=== PATIENT | male | born 1955 | race Caucasian/White ===

== ENCOUNTER → 2016-09-01 19:51 | Emergency (ER) | payer MEDICARE ==
[2016-09-01 19:56] VITALS: BP 159/84
[2016-09-01 20:31] LABS: Hematocrit 50 % (42-52); Hemoglobin 16.5 g/dl (14.0-18.0); Mean Corpuscular HGB Conc 33 g/dl (31-36); Mean Corpuscular Hemoglobin 29 pg (27-31); Mean Corpuscular Volume 86 fL (80-94); Mean Platelet Volume 7 um3 (7.4-10.4); Red Blood Count 5.77 10^6/ul (4.0-5.4); Red Cell Distribution Width 13 % (10.5-15); White Blood Count 6.5 10^3/ul (3.5-10.8)
[2016-09-01 20:35] LABS: Urine Bilirubin Negative (Negative); Urine Glucose Negative (Negative); Urine Nitrite Negative (Negative)
[2016-09-01 20:47] LABS: ALT 16 U/L (7-52); Alkaline Phosphatase 90 U/L (34-104); BUN/Creatinine Ratio 17.6 (8-20); Blood Urea Nitrogen 19 mg/dL (6-24); CO2 Carbon Dioxide 25 mmol/L (22-32); Calcium 9.1 mg/dL (8.6-10.3); Chloride 107 mmol/L (101-111); EGFR African American 89.1 (>60); EGFR Non-African American 69.3 (>60); Globulin 3.5 g/dL (2-4); Glucose 53 mg/dL (70-100); Sodium 138 mmol/L (133-145); Total Protein 7.5 g/dL (6.4-8.9)
[2016-09-01 20:48] LABS: AST 27 U/L (13-39); Anion Gap 6 mmol/L (2-11); Potassium 4.2 mmol/L (3.5-5.0)
[2016-09-01 20:49] LABS: Benzodiazepine Urine Screen None Detected (None Detect)
[2016-09-01 21:04] LABS: Acetaminophen < 15 mcg/mL; Alcohol < 10 mg/dL (<10); Salicylate < 2.50 mg/dL (<30)
[2016-09-01 21:14] LABS: TSH (Thyroid Stimulating Horm) 3.25 mcIU/mL (0.34-5.60)
--- NOTE | 2016-09-01 21:19 | ED ---
Dandre Garcia SooYoung, scribed for Curtis Fernandes MD on 09/01/16 at 2026 . Altered Mental Status - HPI Summary HPI Summary: A 61 y/o M presents to ED with c/o SI. Pt doesn't have money to get his Rx and was dropped from his insurance. He's been cutting his Paxil in half for the past week. He states he "didn't feel good about himself." He says he's been taking his other medications. - History Of Current Complaint Chief Complaint: EDMentalHealth Stated Complaint: MHE/SI Time Seen by Provider: 09/01/16 20:24 Hx Obtained From: Patient Onset/Duration: Still Present Timing: Constant Has Suicidal: Thoughts - Allergies/Home Medications Allergies/Adverse Reactions: Allergies Allergy/AdvReac Type Severity Reaction Status Date / Time Insulin [From Humulin R] Allergy Rash Verified 09/01/16 19:57 ENVIRONMENTAL Allergy NASAL Uncoded 12/07/14 12:50 CONGESTION PMH/Surg Hx/FS Hx/Imm Hx Previously Healthy: No Endocrine/Hematology History: Reports: Hx Diabetes Denies: Hx Thyroid Disease Cardiovascular History: Denies: Hx Hypertension Respiratory History: Reports: Hx Asthma, Hx Chronic Obstructive Pulmonary Disease (COPD) GI History: Denies: Hx Ulcer History: Comment Only: Hx Renal Disease - BLADDER RESECTION - Surgical History Surgery Procedure, Year, and Place: bladder tumor removal [three surgeries] - Immunization History Date of Tetanus Vaccine: PT STATES THAT IT IS UNSURE Date of Influenza Vaccine: NONE Infectious Disease History: No Infectious Disease History: 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 Denies: Hx Clostridium Difficile, Hx Hepatitis, Hx of Known/Suspected MRSA, Hx Shingles, Hx Tuberculosis, Hx Known/Suspected VRE, Hx Known/Suspected VRSA, History Other Infectious Disease, Traveled Outside the [place] in Last 30 Days - Family History Known Family History: Negative: Cardiac Disease, Hypertension, Diabetes - Social History Occupation: Disabled Lives: With Family Alcohol Use: None Hx Substance Use: No Substance Use Type: Reports: None Hx Tobacco Use: Yes Smoking Status (MU): Former Smoker Review of Systems Negative: Slurred Speech Psychological: Other - pos: SI All Other Systems Reviewed And Are Negative: Yes Physical Exam Triage Information Reviewed: Yes Vital Signs On Initial Exam: Initial Vitals Temp Pulse Resp BP Pulse Ox 97.6 F 99 18 159/84 97 09/01/16 19:52 09/01/16 19:52 09/01/16 19:52 09/01/16 19:52 09/01/16 19:52 Vital Signs Reviewed: Yes Appearance: Positive: Well-Appearing, No Pain Distress Skin: Positive: Warm Head/Face: Positive: Normal Head/Face Inspection Eyes: Positive: PRATIBHA ENT: Positive: Hearing grossly normal Neck: Positive: Supple Respiratory/Lung Sounds: Positive: Breath Sounds Present Cardiovascular: Positive: RRR Abdomen Description: Positive: Nontender, Soft Musculoskeletal: Positive: Strength/ROM Intact Neurological: Positive: Alert, Oriented to Person Place, Time Psychiatric: Positive: Anxious Diagnostics - Vital Signs Vital Signs Temp Pulse Resp BP Pulse Ox 09/01/16 19:56 97.6 F 99 18 159/84 99 09/01/16 19:52 97.6 F 99 18 159/84 97 - Laboratory Lab Results: Lab Results 09/01/16 09/01/16 09/01/16 Range/Units 20:13 20:13 20:22 WBC 6.5 (3.5-10.8) 10^3/ul RBC 5.77 H (4.0-5.4) 10^6/ul Hgb 16.5 (14.0-18.0) g/dl Hct 50 (42-52) % MCV 86 (80-94) fL MCH 29 (27-31) pg MCHC 33 (31-36) g/dl RDW 13 (10.5-15) % Plt Count 200 (150-450) 10^3/ul MPV 7 L (7.4-10.4) um3 Neut % (Auto) 50.7 (38-83) % Lymph % (Auto) 27.8 (25-47) % [place] % (Auto) 13.0 H (1-9) % Eos % (Auto) 7.2 H (0-6) % Baso % (Auto) 1.3 (0-2) % Absolute Neuts (auto) 3.3 (1.5-7.7) 10^3/ul Absolute Lymphs (auto) 1.8 (1.0-4.8) 10^3/ul Absolute Monos (auto) 0.8 (0-0.8) 10^3/ul Absolute Eos (auto) 0.5 (0-0.6) 10^3/ul Absolute Basos (auto) 0.1 (0-0.2) 10^3/ul Absolute Nucleated RBC 0.01 10^3/ul Nucleated RBC % 0.2 Sodium (133-145) mmol/L Potassium (3.5-5.0) mmol/L Chloride (101-111) mmol/L Carbon Dioxide (22-32) mmol/L Anion Gap (2-11) mmol/L BUN (6-24) mg/dL Creatinine (0.67-1.17) mg/dL Est GFR ( Amer) (>60) Est GFR (Non-Af Amer) (>60) BUN/Creatinine Ratio (8-20) Glucose (70-100) mg/dL Calcium (8.6-10.3) mg/dL Total Bilirubin (0.2-1.0) mg/dL AST (13-39) U/L ALT (7-52) U/L Alkaline Phosphatase (34-104) U/L Total Protein (6.4-8.9) g/dL Albumin (3.2-5.2) g/dL Globulin (2-4) g/dL Albumin/Globulin Ratio (1-3) TSH (0.34-5.60) mcIU/mL Urine Color Straw Urine Appearance Clear Urine pH 5.0 (5-9) Ur Specific [place] 1.008 L (1.010-1.030) Urine Protein Negative (Negative) Urine Ketones Negative (Negative) Urine Blood Negative (Negative) Urine Nitrate Negative (Negative) Urine Bilirubin Negative (Negative) Urine Urobilinogen Negative (Negative) Ur Leukocyte Esterase Negative (Negative) Urine Glucose Negative (Negative) Salicylates (<30) mg/dL Urine Opiates Screen None detected (None Detect) Acetaminophen mcg/mL Ur Barbiturates Screen None detected (None Detect) Ur Phencyclidine Scrn None detected (None Detect) Ur Amphetamines Screen None detected (None Detect) U Benzodiazepines Scrn None detected (None Detect) Urine Cocaine Screen None detected (None Detect) U Cannabinoids Screen None detected (None Detect) Serum Alcohol (<10) mg/dL 09/01/16 Range/Units 20:22 WBC (3.5-10.8) 10^3/ul RBC (4.0-5.4) 10^6/ul Hgb (14.0-18.0) g/dl Hct (42-52) % MCV (80-94) fL MCH (27-31) pg MCHC (31-36) g/dl RDW (10.5-15) % Plt Count (150-450) 10^3/ul MPV (7.4-10.4) um3 Neut % (Auto) (38-83) % Lymph % (Auto) (25-47) % [place] % (Auto) (1-9) % Eos % (Auto) (0-6) % Baso % (Auto) (0-2) % Absolute Neuts (auto) (1.5-7.7) 10^3/ul Absolute Lymphs (auto) (1.0-4.8) 10^3/ul Absolute Monos (auto) (0-0.8) 10^3/ul Absolute Eos (auto) (0-0.6) 10^3/ul Absolute Basos (auto) (0-0.2) 10^3/ul Absolute Nucleated RBC 10^3/ul Nucleated RBC % Sodium 138 (133-145) mmol/L Potassium 4.2 (3.5-5.0) mmol/L Chloride 107 (101-111) mmol/L Carbon Dioxide 25 (22-32) mmol/L Anion Gap 6 (2-11) mmol/L BUN 19 (6-24) mg/dL Creatinine 1.08 (0.67-1.17) mg/dL Est GFR ( Amer) 89.1 (>60) Est GFR (Non-Af Amer) 69.3 (>60) BUN/Creatinine Ratio 17.6 (8-20) Glucose 53 L (70-100) mg/dL Calcium 9.1 (8.6-10.3) mg/dL Total Bilirubin 0.40 (0.2-1.0) mg/dL AST 27 (13-39) U/L ALT 16 (7-52) U/L Alkaline Phosphatase 90 (34-104) U/L Total Protein 7.5 (6.4-8.9) g/dL Albumin 4.0 (3.2-5.2) g/dL Globulin 3.5 (2-4) g/dL Albumin/Globulin Ratio 1.1 (1-3) TSH 3.25 (0.34-5.60) mcIU/mL Urine Color Urine Appearance Urine pH (5-9) Ur Specific [place] (1.010-1.030) Urine Protein (Negative) Urine Ketones (Negative) Urine Blood (Negative) Urine Nitrate (Negative) Urine Bilirubin (Negative) Urine Urobilinogen (Negative) Ur Leukocyte Esterase (Negative) Urine Glucose (Negative) Salicylates < 2.50 (<30) mg/dL Urine Opiates Screen (None Detect) Acetaminophen < 15 mcg/mL Ur Barbiturates Screen (None Detect) Ur Phencyclidine Scrn (None Detect) Ur Amphetamines Screen (None Detect) U Benzodiazepines Scrn (None Detect) Urine Cocaine Screen (None Detect) U Cannabinoids Screen (None Detect) Serum Alcohol < 10 (<10) mg/dL Result Diagrams: 09/01/16 20:22 09/01/16 20:22 Lab Statement: Any lab studies that have been ordered have been reviewed, and results considered in the medical decision making process. Re-Evaluation - Re-Evaluation First Eval Change: Improved - pt seen and cleared by mental health [facility] Mental Statu Course/Dx - Course Course Of Treatment: Pt is a 61 y/o M with SI onset past few days. Pt says he has been cutting his Paxil in half for the past week because he cannot afford to refill his prescription. UA results are nml, specific gravity is 1.008. Pt medically cleared for MHE at 2030. - Diagnoses Discharge Diagnoses: Schizophrenia Discharge - Discharge Plan Condition: Stable Disposition: HOME Referrals: David Kwong NAPPER RUNNER [Primary Care Provider] - The documentation as recorded by the Dandre thurston SooYoung accurately reflects the service I personally performed and the decisions made by me, Curtis Fernandes MD.
== END | disposition home or self-care (01) ==
LOC: ED 19:51
DX: F20.9 Schizophrenia, unspecified (principal); Z87.891 Personal history of nicotine dependence; E11.9 Type 2 diabetes mellitus without complications; J44.9 Chronic obstructive pulmonary disease, unspecified
CPT/HCPCS: 36415; 80053; 80307; 80320; 80329; 81003; 84443; 85025; 99284; G0480

== ENCOUNTER 2016-12-17 00:24 | Emergency (ER) | payer MEDICARE ==
[2016-12-17] MEDS ORDERED: NS 0.9% 1000 ML* 1,000 ML IV ONE (01:07)
[2016-12-17] MEDS ORDERED: Albuterol/Ipratropium NEB.SOL* Albuterol 2.5 MG/Ipratropium 0.5 MG 3 ML INH ONE (01:07)
[2016-12-17] MEDS ORDERED: methylPREDNISolone 125 MG* 2 ML VIAL IV ONE (01:07)
[2016-12-17] MEDS ORDERED: NS 0.9% 1000 ML* 2,000 ML IV ONE (01:15)
[2016-12-17 01:25] LABS: Hematocrit 50 % (42-52); Hemoglobin 16.8 g/dl (14.0-18.0); Mean Corpuscular HGB Conc 34 g/dl (31-36); Mean Corpuscular Hemoglobin 29 pg (27-31); Mean Corpuscular Volume 85 fL (80-94); Mean Platelet Volume 7 um3 (7.4-10.4); Red Blood Count 5.83 10^6/ul (4.0-5.4); Red Cell Distribution Width 14 % (10.5-15); White Blood Count 6.7 10^3/ul (3.5-10.8)
[2016-12-17 01:38] LABS: Albumin 3.9 g/dL (3.2-5.2); Calcium 9.4 mg/dL (8.6-10.3); EGFR African American 97.4 (>60); EGFR Non-African American 75.7 (>60); Globulin 3.9 g/dL (2-4); Total Bilirubin 0.5 mg/dL (0.2-1.0); Total Protein 7.8 g/dL (6.4-8.9)
[2016-12-17 01:51] LABS: Potassium 4.5 mmol/L (3.5-5.0)
[2016-12-17] MEDS ORDERED: Azithromycin TAB* 250 MG PO ONE (02:59)
[2016-12-17 03:28] VITALS: BP 148/73
--- NOTE | 2016-12-17 03:53 | ED ---
Rogelio Garcia Rebecca, scribed for Migel Weiss MD on 12/17/16 at 0110 . Shortness of Breath - HPI Summary HPI Summary: Pt is a 61 y/o M who presents to ED c/o SOB. Sx have been present for the last 3 days, present when the pt lays flat. Sx aggravates by laying flat, alleviated by nothing, unchanged by walking. Additionally c/o wheezing, chills, rhionrrhea , AUGUST, mucous buildup in the chest and productive cough. Denies rash, edema, CP. Prior similar episode during which he was allergic to the insulin he was on at the time. PMHx CHF, SHx former smoker (quit 5 years ago). Does not use O2 at home and has inhalers. Has previously taken prednisone for arthritis. Is not on blood thinners. - History of Current Complaint Chief Complaint: EDShortnessOfBreath Time Seen by Provider: 12/17/16 00:44 Hx Obtained From: Patient Onset/Duration: Lasting Days - 3 days, Still Present Aggrevating Factors: Recumbent Position - Laying flat Alleviating Factors: Nothing Associated Signs & Symptoms: Cough (Productive), Wheezing - Allergy/Home Medications Allergies/Adverse Reactions: Allergies Allergy/AdvReac Type Severity Reaction Status Date / Time ENVIRONMENTAL Allergy NASAL Uncoded 12/17/16 00:27 CONGESTION PMH/Surg Hx/FS Hx/Imm Hx Endocrine/Hematology History: Reports: Hx Diabetes Denies: Hx Thyroid Disease Cardiovascular History: Denies: Hx Hypertension Respiratory History: Reports: Hx Asthma, Hx Chronic Obstructive Pulmonary Disease (COPD) GI History: Denies: Hx Ulcer History: Comment Only: Hx Renal Disease - BLADDER RESECTION Musculoskeletal History: Reports: Hx Rheumatoid Arthritis Psychiatric History: Denies: Hx Eating Disorder, Hx of Violent Episodes Against Others - Surgical History Surgery Procedure, Year, and Place: bladder tumor removal [three surgeries] - Immunization History Date of Tetanus Vaccine: PT STATES THAT IT IS UNSURE Date of Influenza Vaccine: NONE Infectious Disease History: No Infectious Disease History: 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 Denies: Hx Clostridium Difficile, Hx Hepatitis, Hx of Known/Suspected MRSA, Hx Shingles, Hx Tuberculosis, Hx Known/Suspected VRE, Hx Known/Suspected VRSA, History Other Infectious Disease, Traveled Outside the [place] in Last 30 Days - Family History Known Family History: Negative: Cardiac Disease, Hypertension, Diabetes - Social History Alcohol Use: None Hx Substance Use: No Substance Use Type: Reports: None Hx Tobacco Use: Yes Smoking Status (MU): Former Smoker Review of Systems Positive: Chills Positive: Nasal Discharge Negative: Chest Pain Positive: Shortness Of Breath, Cough - productive, Other - Mucous buildup Negative: Edema Negative: Rash Positive: Headache All Other Systems Reviewed And Are Negative: Yes Physical Exam - Summary Physical Exam Summary: The patient is well-nourished in mild respiratory distress. The skin is warm and dry and skin color reflects adequate perfusion. HEENT: The head is normocephalic and atraumatic. The pupils are equal and reactive. The conjunctivae are clear and without drainage. Nares are patent and without drainage. Mouth reveals moist mucous membranes and the throat has some post nasal drip. The external ears are intact. The ear canals are patent and without drainage. The tympanic membranes are intact. Bilateral frotnal sinus tenderness. Neck is supple with full range of motion and non-tender. Tjere s some wheezing in his neck. Respiratory: Chest is non-tender. There are rhonchi and wheezing in the L lobe. Sounds short of breath when you talk to him. Lungs have diminished breath sounds with more of a wheze then rhonfhi Cardiovascular: Hear is regular rate and rhythm. There is no murmur or rub auscultated. There is no peripheral edema and pulses are symmetrical and equal. Abdomen: The abdomen is soft and non-tender. There are normal bowel sounds heard in all four quadrants and there is no organomegaly palpated. Musculoskeletal: There is no back pain noted. Extremities are non-tender with full range of motion. There is good capillary refill. There is no peripheral edema or calf tenderness elicited. Neurological: Patient is alert and oriented to person, place and time. The patient has symmetrical motor strength in all four extremities. Cranial nerves are grossly intact. Deep tendon reflexes are symmetrical and equal in all four extremities. Psychiatric: The patient has an appropriate affect and does not exhibit any anxiety or depression. Triage Information Reviewed: Yes Vital Signs On Initial Exam: Initial Vitals Temp Pulse Resp BP Pulse Ox 96 F 93 18 145/78 95 12/17/16 00:29 12/17/16 00:12/17/16 00:12/17/16 00:12/17/16 00:29 Vital Signs Reviewed: Yes Diagnostics - Vital Signs Vital Signs Temp Pulse Resp BP Pulse Ox 12/17/16 00:29 96 F 93 18 145/78 95 - Laboratory Lab Results: Lab Results 12/17/16 12/17/16 12/17/16 Range/Units 01:10 01:10 01:10 WBC 6.7 (3.5-10.8) 10^3/ul RBC 5.83 H (4.0-5.4) 10^6/ul Hgb 16.8 (14.0-18.0) g/dl Hct 50 (42-52) % MCV 85 (80-94) fL MCH 29 (27-31) pg MCHC 34 (31-36) g/dl RDW 14 (10.5-15) % Plt Count 205 (150-450) 10^3/ul MPV 7 L (7.4-10.4) um3 Neut % (Auto) 49.8 (38-83) % Lymph % (Auto) 14.4 L (25-47) % [place] % (Auto) 13.9 H (1-9) % Eos % (Auto) 21.5 H (0-6) % Baso % (Auto) 0.4 (0-2) % Absolute Neuts (auto) 3.3 (1.5-7.7) 10^3/ul Absolute Lymphs (auto) 1.0 (1.0-4.8) 10^3/ul Absolute Monos (auto) 0.9 H (0-0.8) 10^3/ul Absolute Eos (auto) 1.4 H (0-0.6) 10^3/ul Absolute Basos (auto) 0 (0-0.2) 10^3/ul Absolute Nucleated RBC 0.03 10^3/ul Nucleated RBC % 0.4 Sodium 137 (133-145) mmol/L Potassium 4.5 (3.5-5.0) mmol/L Chloride 104 (101-111) mmol/L Carbon Dioxide 27 (22-32) mmol/L Anion Gap 6 (2-11) mmol/L BUN 18 (6-24) mg/dL Creatinine 1.00 (0.67-1.17) mg/dL Est GFR ( Amer) 97.4 (>60) Est GFR (Non-Af Amer) 75.7 (>60) BUN/Creatinine Ratio 18.0 (8-20) Glucose 129 H (70-100) mg/dL Lactic Acid (0.5-2.0) mmol/L Calcium 9.4 (8.6-10.3) mg/dL Total Bilirubin 0.50 (0.2-1.0) mg/dL AST 19 (13-39) U/L ALT 10 (7-52) U/L Alkaline Phosphatase 116 H (34-104) U/L Troponin I 0.00 (<0.04) ng/mL B-Natriuretic Peptide 74 ( - 100) pg/mL Total Protein 7.8 (6.4-8.9) g/dL Albumin 3.9 (3.2-5.2) g/dL Globulin 3.9 (2-4) g/dL Albumin/Globulin Ratio 1.0 (1-3) 12/17/16 Range/Units 01:10 WBC (3.5-10.8) 10^3/ul RBC (4.0-5.4) 10^6/ul Hgb (14.0-18.0) g/dl Hct (42-52) % MCV (80-94) fL MCH (27-31) pg MCHC (31-36) g/dl RDW (10.5-15) % Plt Count (150-450) 10^3/ul MPV (7.4-10.4) um3 Neut % (Auto) (38-83) % Lymph % (Auto) (25-47) % [place] % (Auto) (1-9) % Eos % (Auto) (0-6) % Baso % (Auto) (0-2) % Absolute Neuts (auto) (1.5-7.7) 10^3/ul Absolute Lymphs (auto) (1.0-4.8) 10^3/ul Absolute Monos (auto) (0-0.8) 10^3/ul Absolute Eos (auto) (0-0.6) 10^3/ul Absolute Basos (auto) (0-0.2) 10^3/ul Absolute Nucleated RBC 10^3/ul Nucleated RBC % Sodium (133-145) mmol/L Potassium (3.5-5.0) mmol/L Chloride (101-111) mmol/L Carbon Dioxide (22-32) mmol/L Anion Gap (2-11) mmol/L BUN (6-24) mg/dL Creatinine (0.67-1.17) mg/dL Est GFR ( Amer) (>60) Est GFR (Non-Af Amer) (>60) BUN/Creatinine Ratio (8-20) Glucose (70-100) mg/dL Lactic Acid 1.3 (0.5-2.0) mmol/L Calcium (8.6-10.3) mg/dL Total Bilirubin (0.2-1.0) mg/dL AST (13-39) U/L ALT (7-52) U/L Alkaline Phosphatase (34-104) U/L Troponin I (<0.04) ng/mL B-Natriuretic Peptide ( - 100) pg/mL Total Protein (6.4-8.9) g/dL Albumin (3.2-5.2) g/dL Globulin (2-4) g/dL Albumin/Globulin Ratio (1-3) Result Diagrams: 12/17/16 01:10 12/17/16 01:10 Lab Statement: Any lab studies that have been ordered have been reviewed, and results considered in the medical decision making process. - Radiology CXR Xray Interpretation: Positive (See Comments) - Infiltrate in the R lower lobe. Radiology Interpretation Completed By: ED Physician - EKG 0113 Cardiac Rate: NL - 86 bpm EKG Rhythm: Sinus Rhythm ST Segment: Non-Specific - Non-specific ST changes EKG Interpretation: Poor R wvae progression, no STEMI Re-Evaluation - Re-Evaluation First Eval Re-Evaluation Time: 02:50 Comment: To auscultation, the pt has an occasional wheeze and feels much better and expresses that he wouldlike to go home. Course/Dx - Course Assessment/Plan: Pt is a 61 y/o M who presents to ED c/o SOB. Sx have been present for the last 3 days, present when the pt lays flat. Sx aggravates by laying flat, alleviated by nothing, unchanged by walking. Additionally c/o wheezing, chills, rhionrrhea, AUGUST, mucous buildup in the chest and productive cough. Denies rash, edema, CP. Prior similar episode during which he was allergic to the insulin he was on at the time. PMHx CHF, SHx former smoker ( quit 5 years ago). Does not use O2 at home and has inhalers. Has previously taken prednisone for arthritis. Is not on blood thinners. CXR reveals infiltrate in the R lower lobe, as read by ED physician. EKG is sinus rhythm with poor R wave progression, non-specific ST changes and no STEMI. In the ED course, pt received Solu-Medrol, Zithromax, Duoneb and fluids which improved sx. Pt will be D/C to home with Dx of right lower lobe PNA, Rx for Prednisone and Zithromax and a follow up with PCP. He understands and agrees. Elevated BP noted and advised to f/u with PCP. - Diagnoses Differential Diagnosis/HQI/PQRI: Positive: Asthma, Bronchitis, CHF, COPD Exacerbation, Pneumonia Provider Diagnoses: Right lower lobe pneumonia Discharge - Discharge Plan Condition: Stable Disposition: HOME Prescriptions: Azithromycin TAB* [Zithromax TAB (Z-BRIANNA) 250 mg #6 tabs] 2 tab PO .TODAY, THEN 1 DAILY #1 brianna predniSONE TAB* [Deltasone TAB*] 60 mg PO DAILY #15 tab Patient Education Materials: Pneumonia (ED) Referrals: David Kwong, TILE PICKER [Primary Care Provider] - 3 Days The documentation as recorded by the Rogelio thurston Rebecca accurately reflects the service I personally performed and the decisions made by , Migel Weiss MD.
--- NOTE | 2016-12-17 11:18 | RAD ---
INDICATION: Shortness of breath, cough, wheezing. Question CHF and pneumonia. Former tobacco use. Chronic obstructive pulmonary disease. COMPARISON: February 23, 2015 TECHNIQUE: Dual energy PA and routine lateral views of the chest were obtained. REPORT: Elevated lung volumes and both diffuse mild prominence of the interstitial markings and patchy rarefaction of the mid to upper lung zone interstitial markings. No focal pulmonary lesion, compelling alveolar consolidation, pleural effusion, pneumothorax. The heart, pulmonary vasculature, and mediastinal contours are unremarkable. Unremarkable soft tissue contours and osseous structures. IMPRESSION: Stigmata of obstructive lung disease. No acute pulmonary or cardiac process evident.
== END 2016-12-17 03:26 | disposition home or self-care (01) ==
LOC: ED 00:24
DX: J18.9 Pneumonia, unspecified organism (principal); Z87.891 Personal history of nicotine dependence
CPT/HCPCS: 36415; 71020; 80053; 83605; 83880; 84484; 85025; 87040; 93005; 94640; 96360; 96374; 99284; A9270-GY; J2930

== ENCOUNTER 2017-01-26 10:02 | Emergency (ER) | payer MEDICARE ==
--- NOTE | 2017-01-26 11:37 | RAD ---
INDICATION: Productive cough. Aches and pains in joints for 5 days. History of tobacco use. COMPARISON: December 17, 2016 TECHNIQUE: Dual energy PA and routine lateral views of the chest were obtained. REPORT: Elevated lung volumes and both diffuse mild prominence of the interstitial markings and patchy rarefaction of the mid to upper lung zone interstitial markings. No focal pulmonary lesion, compelling alveolar consolidation, pleural effusion, pneumothorax. The heart, pulmonary vasculature, and mediastinal contours are unremarkable. No suspicious osseous lesions evident. IMPRESSION: Stigmata of obstructive lung disease. No acute pulmonary or cardiac process evident.
--- NOTE | 2017-01-26 12:08 | UC ---
Throat Pain/Nasal Carlos HPI - HPI Summary HPI Summary: HISTORY OF COPD. 1.5 MONTHS AGO HAD PNEUMONIA. GIVEN ABX AND PREDNISONE. FELT BETTER. FIVE DAYS AGO DEVELOPED SINUS PRESSURE, MUSCLE ACHES, CONGESTION AND COUGH. HAS BEEN TAKIN ALBUTEROL INHALERS AND IBUPROPHEN .HAS HAD CHILLS, BUT FEVER UNKNOWN. NO CHEST PAIN. NO SOB. - History of Current Complaint Chief Complaint: UCRespiratory Stated Complaint: COUGH Time Seen by Provider: 01/26/17 10:56 Hx Obtained From: Patient Onset/Duration: Gradual Onset, Lasting Days Severity: Moderate Cough: Nonproductive Associated Signs & Symptoms: Positive: Hoarseness, Sinus Discomfort, Nasal Discharge - Epiglottits Risk Factors Epiglottis Risk Factors: Negative - Allergies/Home Medications Allergies/Adverse Reactions: Allergies Allergy/AdvReac Type Severity Reaction Status Date / Time ENVIRONMENTAL Allergy NASAL Uncoded 01/26/17 10:44 CONGESTION Home Medications: Home Medications Ibuprofen [Advil] 4 tab PO 01/26/17 [History] Insulin BID 01/26/17 [History] Insulin LISPRO* [HumaLOG*] 01/26/17 [History] PMH/Surg Hx/FS Hx/Imm Hx Previously Healthy: Yes - Surgical History Surgical History: Yes Surgery Procedure, Year, and Place: bladder tumor removal [three surgeries] - Family History Known Family History: Negative: Cardiac Disease, Hypertension, Diabetes, Respiratory Disease - Social History Lives: With Family Alcohol Use: None Substance Use Type: None Smoking Status (MU): Former Smoker - Immunization History Most Recent Tetanus Shot: 4 years ago Review of Systems Constitutional: Chills Skin: Negative Eyes: Negative ENT: Nasal Discharge, Sinus Congestion, Sinus Pain/Tenderness Respiratory: Cough Cardiovascular: Negative Gastrointestinal: Negative Genitourinary: Negative Motor: Negative Neurovascular: Negative Musculoskeletal: Negative Neurological: Negative Psychological: Negative Is Patient Immunocompromised?: No All Other Systems Reviewed And Are Negative: Yes Physical Exam Triage Information Reviewed: Yes Appearance: No Pain Distress, Well-Nourished, Ill-Appearing - MILDLY Vital Signs: Initial Vital Signs Temp 98.7 F 01/26/17 10:47 Pulse 110 01/26/17 10:47 Resp 18 01/26/17 10:47 BP 137/58 01/26/17 10:47 Pulse Ox 96 01/26/17 10:47 Vital Signs Reviewed: Yes Eye Exam: Normal ENT: Positive: Hearing grossly normal, Nasal congestion, TM bulging, TM dull Dental Exam: Normal Neck exam: Normal Neck: Positive: Supple, Nontender, No Lymphadenopathy Respiratory Exam: Other - COUGH Respiratory: Positive: Chest non-tender, Lungs clear, Normal breath sounds, No respiratory distress, No accessory muscle use Cardiovascular Exam: Normal Cardiovascular: Positive: No Murmur, Pulses Normal, Tachycardia - 100 Abdominal Exam: Normal Abdomen Description: Positive: Nontender, No Organomegaly Musculoskeletal Exam: Normal Neurological Exam: Normal Psychological Exam: Normal Skin Exam: Normal Throat Pain/Nasal Course/Dx - Differential Dx/Diagnosis Differential Diagnosis/HQI/PQRI: Pharyngitis, Sinusitis, Tonsillitis, URI Provider Diagnoses: SINUSITIS; COPD; BRONCHITIS Discharge - Discharge Plan Condition: Stable Disposition: HOME Prescriptions: DOXYcycline CAP(*) [DOXYcycline 100MG CAP(*)] 100 mg PO BID #20 cap Patient Education Materials: Sinusitis (ED), COPD (Chronic Obstructive Pulmonary Disease) (ED), Tachycardia (ED) Referrals: David Kwong COMMUNITY SUPPORT WORKER [Primary Care Provider] -
[2017-01-26 12:21] VITALS: BP 142/72
== END 2017-01-26 12:16 | disposition home or self-care (01) ==
LOC: UCEAST 10:02
DX: J32.9 Chronic sinusitis, unspecified (principal); J40 Bronchitis, not specified as acute or chronic; Z87.891 Personal history of nicotine dependence; J44.9 Chronic obstructive pulmonary disease, unspecified
CPT/HCPCS: 71020; 87502; 99212; G0463

== ENCOUNTER → 2017-01-31 09:19 | Emergency (ER) | payer MEDICARE ==
[~2017-01-31 09:19] MED LIST: NS 0.9% 1000 ML* 1,000 ML IV ONE
[2017-01-31 10:11] LABS: Hemoglobin 11.5 g/dl (14.0-18.0); Mean Corpuscular Volume 85 fL (80-94); Red Cell Distribution Width 15 % (10.5-15)
[2017-01-31 10:13] LABS: Hematocrit 34 % (42-52); Mean Corpuscular HGB Conc 34 g/dl (31-36); Mean Corpuscular Hemoglobin 29 pg (27-31); Red Blood Count 3.98 10^6/ul (4.0-5.4); White Blood Count 9.4 10^3/ul (3.5-10.8)
[2017-01-31 10:15] LABS: Add Diff/Slide Review? Manual Diff Added; Comments Flag Yes
--- NOTE | 2017-01-31 10:20 | RAD ---
HISTORY: Cough, shortness of breath COMPARISONS: January 26, 2017 VIEWS: 4: Frontal dual-energy and lateral views of the chest. FINDINGS: CARDIOMEDIASTINAL SILHOUETTE: The cardiomediastinal silhouette is normal. SWAPNA: The swapna are normal. PLEURA: The costophrenic angles are sharp. No pleural abnormalities are noted. LUNG PARENCHYMA: There is hyperinflation with flattening of the diaphragm and expansion of the AP diameter of the chest. ABDOMEN: The upper abdomen is clear. There is no subphrenic gas. BONES AND SOFT TISSUES: No bone or soft tissue abnormalities are noted. OTHER: None. IMPRESSION: HYPERINFLATION. NO ACTIVE CARDIOPULMONARY DISEASE.
[2017-01-31 10:33] LABS: Albumin 2.5 g/dL (3.2-5.2); BUN/Creatinine Ratio 21.7 (8-20); C Reactive Protein 67.18 mg/L (< 5.00); EGFR African American 120.7 (>60); EGFR Non-African American 93.9 (>60); Globulin 3.9 g/dL (2-4); Potassium 4.1 mmol/L (3.5-5.0); Total Bilirubin 1.2 mg/dL (0.2-1.0); Total Protein 6.4 g/dL (6.4-8.9)
[2017-01-31 11:00] LABS: Eosinophils % 37 % (0-6); Immature Granulocytes 5 % (0-9); Metamyelocytes % 1 % (0-2); Neutrophil % 36 % (38-83); Reactive Lymph % 1 % (0-6)
[2017-01-31 11:02] LABS: Mean Platelet Volume 7 um3 (7.4-10.4)
[2017-01-31 11:04] LABS: Polychromasia 1+
[2017-01-31 11:05] LABS: Schistocytes 1+
[2017-01-31 11:06] LABS: Add Path Review? YES; Hypochromasia 1+
--- NOTE | 2017-01-31 12:24 | CONSULT ---
Consultation - Reason for Consultation Reason for Consultation: anemia and thrombocytopenia Ordering Provider: Rush Pennington Chief Complaint: shortness of breath, arthralgias History of Present Illness: 61 yo M w PMH of COPD, TCC of the bladder (superficial) and diabetes presenting with SOB and arthralgias and found to have acute anemia and thrombocytopenia with schistocytes on smear. Raj reports ~3 months of worsening shortness of breath and overall just not feeling well. He came to the ER here in early December at which time his CXR was clear and his CBC was essentially unremarkable with the exception of mild eosinophilia, which has been noted on CBC dating back to at least 2012. He was not treated with antibiotics at that time but continued to feel short of breath. Over the last week or so he developed arthralgias and went to urgent care on Sunday. He was afebrile and blood was not checked. He was given doxycyline. Since taking this he has had anorexia and 10 pound weight loss. He denies headaches, mental status changes, or fever. He does not take plavix, has no known hypertension and does not use cocaine or other illicit drugs. In the ER he was noted to have a Hb of 11.5 and platelet count of 19k. He denies bruising or bleeding. I have personally reviewed his smear which is notable for relative eosinophila, thrombocytopenia, and 3-5 schistocytes per oil field. There are no immature red blood cells. His bilirubin is slightly elevated at 1.2 and an LDH is pending. Allergies/Medications Medication: Home Medications Medication Instructions Recorded Confirmed Type PARoxetine HCL TAB* [Paxil TAB*] 20 mg PO DAILY 10/02/12 12/07/14 History Albuterol HFA INHALER* [Proair Hfa 1 puff INH Q4H PRN 08/14/13 12/07/14 History Inhaler*] DOXYcycline CAP(*) [DOXYcycline 100 mg PO BID #20 cap 01/26/17 Rx 100MG CAP(*)] Ibuprofen [Advil] 4 tab PO 01/26/17 History Insulin BID 01/26/17 History Insulin LISPRO* [HumaLOG*] 01/26/17 History Allergies/Adverse Reactions: Allergies Allergy/AdvReac Type Severity Reaction Status Date / Time ENVIRONMENTAL Allergy NASAL Uncoded 01/31/17 09:22 CONGESTION History - Past Medical History Other History: 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 insulin dependant diabetes. COPD. anxiety - Family History Other Family History: father some type of what sounds like acute leukemia, last year - Social History Hx Alcohol Use: No Hx Tobacco Use: Yes - quit 6 yrs ago, 1ppd x 40 yrs Hx Substance Use: No Marital Status: Review of Systems - Review of Systems Constitutional Symptoms: Positive: Weight Loss, Fatigue Dermatology: Positive: Skin Lesions - scratches on a raspberry deutsch HEENT: Positive: Normal Eyes: Positive: Normal Thyroid: Positive: Normal Pulmonary: Positive: Shortness of Breath, COPD Cardiology: Positive: Normal Gastroenterology: Positive: Anorexia Genital - Urinary: Positive: Normal Musculoskeletal: Positive: Other - arthralgias Endocrinology: Positive: Normal Neurology: Positive: Normal Psychiatry: Positive: Anxiety Physical Exam - Physical Exam Physical Examination: Vital Signs Temp Pulse Resp BP Pulse Ox 97.4 F 107 24 149/86 95 01/31/17 09:21 01/31/17 09:21 01/31/17 09:21 01/31/17 09:21 01/31/17 09:21 sitting up in nad perr eomi op moist CTA bl s1 s2 tachy soft nt no obvious hsm no le edema no purpura escoriations on arms bilaterally crusted lip lesion (reports from dry, cracking lesion not ulceration or blister) A+O x 3, nonfocal neurological exam Results - Lab Results Lab Results: 01/31/17 01/31/17 01/31/17 09:56 09:56 11:39 WBC 9.4 RBC 3.98 L Hgb 11.5 L Hct 34 L MCV 85 MCH 29 MCHC 34 RDW 15 Plt Count 19 L* MPV 7 L Immature Gran % (Auto) 5 Absolute Neuts (auto) 4.5 Absolute Lymphs (auto) 1.0 Absolute Monos (auto) 1.0 H Absolute Eos (auto) 2.8 H Absolute Basos (auto) 0 Absolute Nucleated RBC 0.02 Neutrophils % 36 L Band Neutrophils % 4 Lymphocytes % 12 L Reactive Lymphs % 1 Monocytes % 9 Eosinophils % 37 H Metamyelocytes % 1 Normal RBC Morphology Not Reportable Polychromasia 1+ Hypochromasia 1+ Schistocytes 1+ Sodium 134 Potassium 4.1 Chloride 105 Carbon Dioxide 25 Anion Gap 4 BUN 18 Creatinine 0.83 Est GFR ( Amer) 120.7 Est GFR (Non-Af Amer) 93.9 BUN/Creatinine Ratio 21.7 H Glucose 199 H POC Glucose (mg/dL) 127 H Calcium 8.0 L Total Bilirubin 1.20 H AST 16 ALT 18 Alkaline Phosphatase 100 C-Reactive Protein 67.18 H Total Protein 6.4 Albumin 2.5 L Globulin 3.9 Albumin/Globulin Ratio 0.6 L Influenza A (Rapid) Influenza B (Rapid) 01/31/17 11:41 WBC RBC Hgb Hct MCV MCH MCHC RDW Plt Count MPV Immature Gran % (Auto) Absolute Neuts (auto) Absolute Lymphs (auto) Absolute Monos (auto) Absolute Eos (auto) Absolute Basos (auto) Absolute Nucleated RBC Neutrophils % Band Neutrophils % Lymphocytes % Reactive Lymphs % Monocytes % Eosinophils % Metamyelocytes % Normal RBC Morphology Polychromasia Hypochromasia Schistocytes Sodium Potassium Chloride Carbon Dioxide Anion Gap BUN Creatinine Est GFR ( Amer) Est GFR (Non-Af Amer) BUN/Creatinine Ratio Glucose POC Glucose (mg/dL) Calcium Total Bilirubin AST ALT Alkaline Phosphatase C-Reactive Protein Total Protein Albumin Globulin Albumin/Globulin Ratio Influenza A (Rapid) Negative Influenza B (Rapid) Negative Assessment and Plan Impression: 61 yo M w 3 months of worsening SOB but 1 week of arthralgias and acute exacerbation of his shortness of breath, found to have anemia and thrombocytopenia with marked schistocytosis on smear. I wonder if the two processes are unrelated (his SOB may be from worsening COPD or eosinophilic pneumonitis given chronic elevation of his eosinophils). 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 He has no clear drugs that cause this (brief literature review does not show reports of this with doxycycline), does not have malignant hypertension or any illicit drugs. Unfortunately we do not offer plasmaphoresis at our institution and so I have advised transfer to [facility] for further evaluation and management. Raj and his are in agreement with this plan. I will not send [id number] as this will take days to come back and will be best sent at [facility] where they will be managing him.
[2017-01-31 12:38] LABS: Immature Retic Fraction 0.59
[2017-01-31 12:39] LABS: Corrected Retic Count 1.1 % (0.5-1.5); Maturation Factor Retic 1.5
--- NOTE | 2017-01-31 13:00 | ED ---
Ja Garcia Angela, scribed for Rush Pennington MD on 01/31/17 at 0953 . Respiratory - HPI Summary HPI Summary: This pt is a 61 y/o male presenting to [facility] c/o worsening cough over the past 6 months. Pt reports he has been in the ED 3 times and was put on antibiotics, all different antibiotics all 3 times. He states that his cough is productive and has been worsening. Pt denies fever, chills. He reports he went to Urgent Care on 01/26/17 for cough. Pt states he was given doxycycline which he has been taking. Since then pt notes he has had an allergic reaction and began breaking out on his back. Pt is a former smoker. PMHx includes COPD and diabetes. - History of Current Complaint Chief Complaint: EDUpperRespComplaint Stated Complaint: COUGH Time Seen by Provider: 01/31/17 09:26 Hx Obtained From: Patient Onset/Duration: Lasting Days, Still Present Timing: Constant Pain Intensity: 1 Character: Cough (Productive) Aggravating Factor(s): Nothing Alleviating Factor(s): Nothing - Allergy/Home Medications Allergies/Adverse Reactions: Allergies Allergy/AdvReac Type Severity Reaction Status Date / Time ENVIRONMENTAL Allergy NASAL Uncoded 01/31/17 09:22 CONGESTION PMH/Surg Hx/FS Hx/Imm Hx Endocrine/Hematology History: Reports: Hx Diabetes Denies: Hx Thyroid Disease Cardiovascular History: Denies: Hx Hypertension Respiratory History: Reports: Hx Asthma, Hx Chronic Obstructive Pulmonary Disease (COPD) GI History: Denies: Hx Ulcer History: Comment Only: Hx Renal Disease - BLADDER RESECTION Musculoskeletal History: Reports: Hx Rheumatoid Arthritis Psychiatric History: Denies: Hx Eating Disorder, Hx of Violent Episodes Against Others - Cancer History Cancer Type, Location and Year: bladder - Surgical History Surgery Procedure, Year, and Place: bladder tumor removal [three surgeries] - Immunization History Date of Tetanus Vaccine: PT STATES THAT IT IS UNSURE Date of Influenza Vaccine: NONE Infectious Disease History: No Infectious Disease History: 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 Denies: Hx Clostridium Difficile, Hx Hepatitis, Hx of Known/Suspected MRSA, Hx Shingles, Hx Tuberculosis, Hx Known/Suspected VRE, Hx Known/Suspected VRSA, History Other Infectious Disease, Traveled Outside the [place] in Last 30 Days - Family History Known Family History: Negative: Cardiac Disease, Hypertension, Diabetes, Respiratory Disease - Social History Alcohol Use: None Hx Substance Use: No Substance Use Type: Reports: None Hx Tobacco Use: Yes Smoking Status (MU): Former Smoker Review of Systems Negative: Fever, Chills Eyes: Negative ENT: Negative Positive: Cough Musculoskeletal: Negative Skin: Negative Neurological: Negative All Other Systems Reviewed And Are Negative: Yes Physical Exam - Summary Physical Exam Summary: VITAL SIGNS: Reviewed. GENERAL: Patient is a well-developed and nourished male who is lying comfortable in the stretcher. Patient is not in any acute respiratory distress. HEAD AND FACE: No signs of trauma. No ecchymosis, hematomas or skull depressions. No sinus tenderness. EYES: PERRLA, EOMI x 2, No injected conjunctiva, no nystagmus. EARS: Hearing grossly intact. Ear canals and tympanic membranes are within normal limits. MOUTH: Oropharynx within normal limits. NECK: Supple, trachea is midline, no adenopathy, no JVD, no carotid bruit, no c- spine tenderness, neck with full ROM. CHEST: Symmetric, no tenderness at palpation LUNGS: There is rhonchi in both lungs. There are no crackles. CVS: Regular rate and rhythm, S1 and S2 present, no murmurs or gallops appreciated. ABDOMEN: Soft, non-tender. No signs of distention. No rebound no guarding, and no masses palpated. Bowel sounds are normal. EXTREMITIES: FROM in all major joints, no edema, no cyanosis or clubbing. NEURO: Alert and oriented x 3. No acute neurological deficits. Speech is normal and follows commands. SKIN: Dry and warm. There are hives and papules on pt's back probably secondary to an allergic reaction to doxycycline. Triage Information Reviewed: Yes Vital Signs On Initial Exam: Initial Vitals Temp Pulse Resp BP Pulse Ox 97.4 F 107 24 149/86 95 01/31/17 09:21 01/31/17 09:21 01/31/17 09:21 01/31/17 09:21 01/31/17 09:21 Vital Signs Reviewed: Yes - Jarad Coma Scale Coma Scale Total: 15 Diagnostics - Vital Signs Vital Signs Temp Pulse Resp BP Pulse Ox 01/31/17 09:21 97.4 F 107 24 149/86 95 - Laboratory Lab Results: Lab Results 10/01/31/17 01/31/17 Range/Units 09:56 09:56 11:39 WBC 9.4 (3.5-10.8) 10^3/ul RBC 3.98 L (4.0-5.4) 10^6/ul RBC (Retic) 3.98 L (4.6-6.2) 10^6/ul Hgb 11.5 L (14.0-18.0) g/dl Hct 34 L (42-52) % HCT (Retic) 34 L (42-52) % MCV 85 (80-94) fL MCH 29 (27-31) pg MCHC 34 (31-36) g/dl RDW 15 (10.5-15) % Plt Count 19 L* (150-450) 10^3/ul MPV 7 L (7.4-10.4) um3 Immature Gran % (Auto) 5 (0-9) % Absolute Neuts (auto) 4.5 (1.5-7.7) 10^3/ul Absolute Lymphs (auto) 1.0 (1.0-4.8) 10^3/ul Absolute Monos (auto) 1.0 H (0-0.8) 10^3/ul Absolute Eos (auto) 2.8 H (0-0.6) 10^3/ul Absolute Basos (auto) 0 (0-0.2) 10^3/ul Absolute Nucleated RBC 0.02 10^3/ul Neutrophils % 36 L (38-83) % Band Neutrophils % 4 (0-8) % Lymphocytes % 12 L (25-47) % Reactive Lymphs % 1 (0-6) % Monocytes % 9 (0-13) % Eosinophils % 37 H (0-6) % Metamyelocytes % 1 (0-2) % Normal RBC Morphology Not Reportable Polychromasia 1+ Hypochromasia 1+ Schistocytes 1+ Retic Count, Calc 1.4 (0.5-1.5) % Corrected Retic Count 1.1 (0.5-1.5) % Retic Shift Factor 1.5 Retic Production Index 0.70 Immature Retic Fraction 0.59 Mean Retic Volume 117.3 Hem Pathologist Commnt Pending Sodium 134 (133-145) mmol/L Potassium 4.1 (3.5-5.0) mmol/L Chloride 105 (101-111) mmol/L Carbon Dioxide 25 (22-32) mmol/L Anion Gap 4 (2-11) mmol/L BUN 18 (6-24) mg/dL Creatinine 0.83 (0.67-1.17) mg/dL Est GFR ( Amer) 120.7 (>60) Est GFR (Non-Af Amer) 93.9 (>60) BUN/Creatinine Ratio 21.7 H (8-20) Glucose 199 H (70-100) mg/dL POC Glucose (mg/dL) 127 H (70-100) mg/dL Calcium 8.0 L (8.6-10.3) mg/dL Total Bilirubin 1.20 H (0.2-1.0) mg/dL AST 16 (13-39) U/L ALT 18 (7-52) U/L Alkaline Phosphatase 100 (34-104) U/L Lactate Dehydrogenase Cancelled C-Reactive Protein 67.18 H (< 5.00) mg/L Total Protein 6.4 (6.4-8.9) g/dL Albumin 2.5 L (3.2-5.2) g/dL Globulin 3.9 (2-4) g/dL Albumin/Globulin Ratio 0.6 L (1-3) Influenza A (Rapid) (Negative) Influenza B (Rapid) (Negative) 01/31/17 Range/Units 11:41 WBC (3.5-10.8) 10^3/ul RBC (4.0-5.4) 10^6/ul RBC (Retic) (4.6-6.2) 10^6/ul Hgb (14.0-18.0) g/dl Hct (42-52) % HCT (Retic) (42-52) % MCV (80-94) fL MCH (27-31) pg MCHC (31-36) g/dl RDW (10.5-15) % Plt Count (150-450) 10^3/ul MPV (7.4-10.4) um3 Immature Gran % (Auto) (0-9) % Absolute Neuts (auto) (1.5-7.7) 10^3/ul Absolute Lymphs (auto) (1.0-4.8) 10^3/ul Absolute Monos (auto) (0-0.8) 10^3/ul Absolute Eos (auto) (0-0.6) 10^3/ul Absolute Basos (auto) (0-0.2) 10^3/ul Absolute Nucleated RBC 10^3/ul Neutrophils % (38-83) % Band Neutrophils % (0-8) % Lymphocytes % (25-47) % Reactive Lymphs % (0-6) % Monocytes % (0-13) % Eosinophils % (0-6) % Metamyelocytes % (0-2) % Normal RBC Morphology Polychromasia Hypochromasia Schistocytes Retic Count, Calc (0.5-1.5) % Corrected Retic Count (0.5-1.5) % Retic Shift Factor Retic Production Index Immature Retic Fraction Mean Retic Volume Hem Pathologist Commnt Sodium (133-145) mmol/L Potassium (3.5-5.0) mmol/L Chloride (101-111) mmol/L Carbon Dioxide (22-32) mmol/L Anion Gap (2-11) mmol/L BUN (6-24) mg/dL Creatinine (0.67-1.17) mg/dL Est GFR ( Amer) (>60) Est GFR (Non-Af Amer) (>60) BUN/Creatinine Ratio (8-20) Glucose (70-100) mg/dL POC Glucose (mg/dL) (70-100) mg/dL Calcium (8.6-10.3) mg/dL Total Bilirubin (0.2-1.0) mg/dL AST (13-39) U/L ALT (7-52) U/L Alkaline Phosphatase (34-104) U/L Lactate Dehydrogenase C-Reactive Protein (< 5.00) mg/L Total Protein (6.4-8.9) g/dL Albumin (3.2-5.2) g/dL Globulin (2-4) g/dL Albumin/Globulin Ratio (1-3) Influenza A (Rapid) Negative (Negative) Influenza B (Rapid) Negative (Negative) Result Diagrams: 01/31/17 09:56 01/31/17 09:56 Lab Statement: Any lab studies that have been ordered have been reviewed, and results considered in the medical decision making process. - Radiology Chest XR Xray Interpretation: Positive (See Comments) - IMPRESSION: Hyperinflation. No active cardiopulmonary disease. ED physician has reviewed this radiology report and agrees. Radiology Interpretation Completed By: Radiologist - EKG 0949 Cardiac Rate: NL - 94 bpm EKG Rhythm: Sinus Rhythm EKG Interpretation: No ST elevation Re-Evaluation - Re-Evaluation First Eval Re-Evaluation Time: 12:35 Disposition - Course Assessment/Plan: This pt is a 61 y/o male presenting to [facility] c/o worsening cough over the past 6 months. Pt reports he has been in the ED 3 times and was put on antibiotics, all different antibiotics all 3 times. He states that his cough is productive and has been worsening. Pt denies fever, chills. He reports he went to Urgent Care on 01/26/17 for cough. Pt states he was given doxycycline which he has been taking. Since then pt notes he has had an allergic reaction and began breaking out on his back. Pt is a former smoker. PMHx includes COPD and diabetes. Test results show hemoglobin of 11.5, hematocrit of 34, platelet count of 19. MCV of 85, glucose of 199, calcium of 8 , CRP of 67.1. Influenza A and B are negative. Chest XR shows hyperinflation with no active cardiopulmonary disease. In the ED course, the pt was hydrated with IV fluids. At this point, because of thrombocytopenia, I discussed with Dr. Lvoe. She came and consulted with the pt, she thinks the pt has TTP. She reports the treatment for this pt would be plasmaphoresis and recommends the pt to be transferred. I discussed the case with Dr. Torres, from [facility], who accepted the pt for transfer. The pt accepts to be transferred and agrees with the plan. Pt is hemodynamically stable, alert and oriented x3 and is not currently bleeding. - Differential Dx - Cardiopulmonary Differential Diagnoses - Cardiopulmonary: Bronchitis, CHF, Chest Wall Pain, SARS , Other - Pneumonia - Diagnoses Provider Diagnoses: TTP (thrombotic thrombocytopenic purpura) - Physician Notifications Discussed Care Of Patient With: Jaz Love Time Discussed With Above Provider: 11:47 Instructed by Provider To: Other - I discussed the pt's case with Dr. Love. She will consult with the pt. [12:22] I discussed the case with Dr. Torres, from [facility], who has accepted the pt for admission. Discharge - Discharge Plan Condition: Stable Disposition: TRANS HIGHER LVL OF CARE FAC Discharge Disposition Comment: [facility] Referrals: David Kwong, [employer] [Primary Care Provider] - The documentation as recorded by the Ja thurston Angela accurately reflects the service I personally performed and the decisions made by me, Rush Pennington MD.
[2017-01-31 13:27] VITALS: BP 135/72
== END | disposition short-term general hospital (02) ==
LOC: ED 09:19
DX: M31.1 Thrombotic microangiopathy (principal); R05 Cough; Z87.891 Personal history of nicotine dependence
CPT/HCPCS: 36415; 71020; 80053; 83615; 85025; 85045; 85060; 85610; 86140; 87502; 93005; 99223; 99283

== ENCOUNTER 2017-03-07 12:56 | Day surgery (SDC) | payer MEDICARE ==
[~2017-03-07 12:56] MED LIST changes: +Buffered Lidocaine 0.9% SYRIN* 5 ML/SYR SYRINGE INTRADERM ONE; +Famotidine IV* 10 MG/ML 2 ML (20 mg) IV ONE; -NS 0.9% 1000 ML* 1,000 ML IV ONE
[2017-03-07] MEDS ORDERED: Buffered Lidocaine 0.9% SYRIN* 5 ML/SYR SYRINGE ONE (13:04)
[2017-03-07] MEDS ORDERED: Famotidine IV* 10 MG/ML 2 ML (20 mg) ONE ×2 (13:04→14:09)
[2017-03-07] MEDS ORDERED: Midazolam* 1 MG/ML 2 ML VIAL (2 MG) ONE (13:35)
[2017-03-07] MEDS ORDERED: fentaNYL* 50 MCG/ML 2 ML VIAL (100 MCG VIAL) ONE ×2 (14:24→16:29)
[2017-03-07] MEDS ORDERED: Cisatracurium* 2 MG/ML MDV 5 ML ONE (14:32)
[2017-03-07] MEDS ORDERED: Succinylcholine* 20 MG/ML 10 ML VIAL ONE (14:35)
[2017-03-07] MEDS ORDERED: Dexamethasone IV* 4 MG/ML 1 ML (4 MG) ONE (14:35)
[2017-03-07] MEDS ORDERED: Propofol* 10 MG/ML 20 ML BTL IV PUSH ONE ×2 (14:35→15:17)
[2017-03-07] MEDS ORDERED: Lidocaine 2% PF * 5 ML VIAL ONE (14:35)
[2017-03-07] MEDS ORDERED: Desflurane* 240 ML INH ONE (14:35)
[2017-03-07] MEDS ORDERED: Ondansetron INJ* 2 MG/ML VIAL ONE (14:35)
[2017-03-07] MEDS ORDERED: PROCHLORPERAZINE INJ 5 MG/ML 2 ML VIAL IV PRN (14:39)
[2017-03-07] MEDS ORDERED: Acetaminophen TAB* 325 MG PO PRN (14:39)
[2017-03-07] MEDS ORDERED: Ondansetron INJ* 2 MG/ML VIAL IV PRN (14:39)
[2017-03-07] MEDS ORDERED: fentaNYL* 50 MCG/ML 2 ML VIAL (100 MCG VIAL) IV PRN (14:39)
[2017-03-07] MEDS ORDERED: Levalbuterol 0.63MG/3ML NEB* UNIT OF USE INH PRN (14:39)
[2017-03-07] MEDS ORDERED: Levalbuterol HFA INHALER* 1 PUFF MDI ONE (15:45)
[2017-03-07 17:09] VITALS: BP 135/63
--- NOTE | 2017-03-08 06:09 | PRO ---
BRONCHOSCOPY REPORT: DATE OF PROCEDURE: 03/07/17 PROCEDURE PERFORMED: Bronchoscopy with endobronchial ultrasound-guided fine needle aspiration from station 7, R4 and L4 lymph nodes. INDICATION FOR THE PROCEDURE: Mediastinal and hilar adenopathy. ANESTHESIA: General anesthesia. ANESTHESIOLOGIST: Dr. Nelson. DESCRIPTION OF PROCEDURE: Informed consent was obtained from the patient prior to the procedure after all the risks and benefits were thoroughly explained. The patient was placed supine on the operating room table. The patient was intubated with size 8.0 endotracheal tube. A flexible Pentax bronchoscope was inserted through ET tube for airway inspection. No endobronchial lesions were noted. The patient had thick white secretions which were suctioned out. Bronchoscope was then withdrawn and the EBUS bronchoscope was inserted through the ET tube. EBUS bronchoscope was not working well due to technical issues and the scope could not be flexed enough to get adequate contact with the airway. Station 7 lymph node was seemed to be enlarged and was accessed with 5 passes. Benign bronchial cells were seen on few passes and blood was seen on rapid on-site exam. The rest of the sample was placed in CytoLyt. Station R4 was also sampled with 5 passes. Same findings noted in R4 and L4. L4 was accessed with 3 passes. The patient tolerated the procedure well. The patient was extubated and seen in Recovery in optimal condition. Will await final cytology results. If negative will need repeat procedure [id number]/[facility] #: [id number] [facility]
== END 2017-03-07 17:09 | disposition home or self-care (01) ==
LOC: OR 12:56
PROVIDERS: ATTEND Internal Medicine
DX: R59.0 Localized enlarged lymph nodes (principal); D72.1 Eosinophilia; Z87.891 Personal history of nicotine dependence; E11.9 Type 2 diabetes mellitus without complications; Z79.4 Long term (current) use of insulin; R91.8 Other nonspecific abnormal finding of lung field; M06.9 Rheumatoid arthritis, unspecified; J44.9 Chronic obstructive pulmonary disease, unspecified; R16.1 Splenomegaly, not elsewhere classified
CPT/HCPCS: 88172; 88173; 88177; 88305; A9270-GY; J0330; J1100; J2250; J2405; J2704; J3010

== ENCOUNTER 2017-07-19 19:47 | Inpatient (IN) | payer MEDICARE ==
[2017-07-19] MEDS ORDERED: Albuterol/Ipratropium NEB.SOL* Albuterol 2.5 MG/Ipratropium 0.5 MG 3 ML INH ONE (22:03)
[2017-07-19] MEDS ORDERED: predniSONE TAB* 20 MG PO ONE (22:03)
[2017-07-19] MEDS ORDERED: NS 0.9% 1000 ML* 1,000 ML IV ONE (22:05)
[2017-07-19 22:40] LABS: ABS Basophils 0.1 10^3/ul (0-0.2); ABS Lymphocytes 1.4 10^3/ul (1.0-4.8); ABS Monocytes 1.2 10^3/ul (0-0.8); ABS Nucleated RBC 0 10^3/ul; Hematocrit 43 % (42-52); Hemoglobin 14.4 g/dl (14.0-18.0); Lymphocyte % 12.7 % (25-47); Mean Corpuscular HGB Conc 34 g/dl (31-36); Mean Corpuscular Hemoglobin 28 pg (27-31); Mean Corpuscular Volume 83 fL (80-94); Mean Platelet Volume 6.5 um3 (7.4-10.4); Nucleated Red Blood Cells % 0.1; Platelet Count 265 10^3/ul (150-450); Red Blood Count 5.14 10^6/ul (4.0-5.4); Red Cell Distribution Width 14 % (10.5-15); White Blood Count 10.8 10^3/ul (3.5-10.8)
[2017-07-19 22:54] LABS: EGFR Non-African American 79.1 (>60)
[2017-07-19] MEDS ORDERED: Levofloxacin TAB* 250 MG PO ONE (23:08)
--- NOTE | 2017-07-20 00:42 | ED ---
Opal Garcia Gabriel, scribed for Ted Magana MD on 07/19/17 at 2201 . Shortness of Breath - HPI Summary HPI Summary: This patient is a 62 year old M presenting to [facility] with a chief complaint of SOB that began this yesterday but was worse this morning. The patient rates the pain 0/10 in severity. Patient reports cough and sinus congestion. Patient denies CP and fever. Pt is not on steroids but has an at home inhaler. Hx COPD and IDDM. - History of Current Complaint Chief Complaint: EDShortnessOfBreath Time Seen by Provider: 07/19/17 21:56 Hx Obtained From: Patient Onset/Duration: Still Present Timing: Constant Current Severity: Moderate Associated Signs & Symptoms: Negative - CP and fever, Cough (Productive), Nasal Congestion - Allergy/Home Medications Allergies/Adverse Reactions: Allergies Allergy/AdvReac Type Severity Reaction Status Date / Time Sulfa (Sulfonamide Allergy Mild GI Upset Verified 06/18/17 13:37 Antibiotics) ENVIRONMENTAL Allergy NASAL Uncoded 03/07/17 13:14 CONGESTION PMH/Surg Hx/FS Hx/Imm Hx Endocrine/Hematology History: Reports: Hx Diabetes - ON INSULIN Denies: Hx Thyroid Disease Cardiovascular History: Denies: Hx Hypertension Respiratory History: Reports: Hx Asthma - ON SYMBICORT, Hx Chronic Obstructive Pulmonary Disease (COPD) GI History: Denies: Hx Ulcer History: Reports: Other Problems/Disorders - BLADDER CANCER FOLLOWS WITH Comment Only: Hx Renal Disease - BLADDER RESECTION Musculoskeletal History: Reports: Hx Arthritis - R/A, Hx Rheumatoid Arthritis Sensory History: Reports: Hx Contacts or Glasses - GLASSES Denies: Hx Hearing Aid Opthamlomology History: Reports: Hx Contacts or Glasses - GLASSES Psychiatric History: Reports: Hx Anxiety, Hx Depression Denies: Hx Eating Disorder, Hx of Violent Episodes Against Others - Cancer History Cancer Type, Location and Year: bladder - Surgical History Surgery Procedure, Year, and Place: bladder tumor removal [three surgeries]. BONE MARROW BX 2017. WISDOM TEETH EXTRACTION Hx Anesthesia Reactions: No - Immunization History Date of Tetanus Vaccine: PT STATES THAT IT IS UNSURE Date of Influenza Vaccine: NONE Infectious Disease History: No Infectious Disease History: 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 Denies: Hx Clostridium Difficile, Hx Hepatitis, Hx of Known/Suspected MRSA, Hx Shingles, Hx Tuberculosis, Hx Known/Suspected VRE, Hx Known/Suspected VRSA, History Other Infectious Disease, Traveled Outside the [place] in Last 30 Days - Family History Known Family History: Negative: Cardiac Disease, Hypertension, Diabetes, Respiratory Disease - Social History Alcohol Use: None Hx Substance Use: No Substance Use Type: Reports: None Hx Tobacco Use: Yes Smoking Status (MU): Former Smoker Amount Used/How Often: 1/2PPD Have You Smoked in the Last Year: No Review of Systems Negative: Fever Positive: Other - congestion Negative: Chest Pain Positive: Cough All Other Systems Reviewed And Are Negative: Yes Physical Exam - Summary Physical Exam Summary: Appearance: Well appearing, no pain distress Skin: warm, dry, reflects adequate perfusion Head/face: normal Eyes: EOMI, PRATIBHA ENT: normal, mucous membranes are moist Neck: supple, non-tender Respiratory: expiratory wheezes globally with prolonged expiration, O2 sat on room air was 94% Cardiovascular: RRR, pulses symmetrical Abdomen: non-tender, soft Bowel Sounds: present Musculoskeletal: normal, strength/ROM intact Neuro: normal, sensory motor intact, A&Ox3 Triage Information Reviewed: Yes Vital Signs On Initial Exam: Initial Vitals Temp Pulse Resp BP Pulse Ox 97.7 F 100 20 133/68 91 07/19/17 19:51 07/19/17 19:51 07/19/17 19:51 07/19/17 19:51 07/19/17 19:51 Vital Signs Reviewed: Yes Diagnostics - Vital Signs Vital Signs Temp Pulse Resp BP Pulse Ox 07/19/17 20:58 98.5 F 95 22 124/64 91 07/19/17 19:51 97.7 F 100 20 133/68 91 - Laboratory Lab Results: Lab Results 07/19/17 07/19/17 07/19/17 Range/Units 22:28 22:28 23:38 WBC 10.8 (3.5-10.8) 10^3/ul RBC 5.14 (4.0-5.4) 10^6/ul Hgb 14.4 (14.0-18.0) g/dl Hct 43 (42-52) % MCV 83 (80-94) fL MCH 28 (27-31) pg MCHC 34 (31-36) g/dl RDW 14 (10.5-15) % Plt Count 265 (150-450) 10^3/ul MPV 6.5 L (7.4-10.4) um3 Neut % (Auto) 55.9 (38-83) % Lymph % (Auto) 12.7 L (25-47) % [place] % (Auto) 11.2 H (0-7) % Eos % (Auto) 19.0 H (0-6) % Baso % (Auto) 1.2 (0-2) % Absolute Neuts (auto) 6.0 (1.5-7.7) 10^3/ul Absolute Lymphs (auto) 1.4 (1.0-4.8) 10^3/ul Absolute Monos (auto) 1.2 H (0-0.8) 10^3/ul Absolute Eos (auto) 2.0 H (0-0.6) 10^3/ul Absolute Basos (auto) 0.1 (0-0.2) 10^3/ul Absolute Nucleated RBC 0 10^3/ul Nucleated RBC % 0.1 Sodium 142 (139-145) mmol/L Potassium 4.2 (3.5-5.0) mmol/L Chloride 106 (101-111) mmol/L Carbon Dioxide 29 (22-32) mmol/L Anion Gap 7 (2-11) mmol/L BUN 13 (6-24) mg/dL Creatinine 0.96 (0.67-1.17) mg/dL Est GFR ( Amer) 101.7 (>60) Est GFR (Non-Af Amer) 79.1 (>60) BUN/Creatinine Ratio 13.5 (8-20) Glucose 44 L (70-100) mg/dL POC Glucose (mg/dL) 149 H (70-100) mg/dL Calcium 8.9 (8.6-10.3) mg/dL Result Diagrams: 07/19/17 22:28 07/19/17 22:28 Lab Statement: Any lab studies that have been ordered have been reviewed, and results considered in the medical decision making process. - Radiology CXR Radiology Interpretation Completed By: ED Physician - atelectasis vs developing infiltrate in left lower lobe - EKG 2025 Cardiac Rate: NL EKG Rhythm: Sinus Rhythm - at [address] Segment: Non-Specific EKG Interpretation: normal axis Course/Dx - Course Course Of Treatment: Pt with hx of COPD, no longer smoker. ? inf starting in the [facility]. Began pt on oral steroid and given 3 duoneb with pt hoping he could be discharged. He was feeling subjectively better, however he was hypoxic off oxygen with minimal effort. Discussed with hospitalist who will admit. - Diagnoses Differential Diagnosis/HQI/PQRI: Positive: Bronchitis, COPD Exacerbation, Pneumonia Provider Diagnoses: Hypoxia, COPD exacerbation, Hypoglycemia - Physician Notifications Discussed Care of Patient With: Barry Walker Time Discussed With Above Provider: 23:54 Instructed by Provider To: Admit As Inpatient - Critical Care Time Critical Care Time: 30-74 min - CCT is exclusive of separately billable procedures. Discharge - Sign-Out/Discharge Documenting (check all that apply): Discharge - Discharge Plan Condition: Fair Disposition: ADMITTED TO [facility] Referrals: David Kwong NP [Primary Care Provider] - - Billing Disposition and Condition Condition: FAIR Disposition: [facility] [place] The documentation as recorded by the Opal thurston Gabriel accurately reflects the service I personally performed and the decisions made by Chino valadez Kirk, MD.
[2017-07-20] MEDS ORDERED: Insulin GLARGINE(*) 1 UNITS UNIT SUBCUT SCH (01:30)
--- NOTE | 2017-07-20 04:28 | HP ---
H&P (Free Text) History and Physical: PCP: Mani Kwong NP Date/Time: 07/20/2017 0040 CC: SOB HPI: Mr Sheriff is a 62YO male HX COPD, bladder CA, warm autoimmune hemolytic anemia, DM, anxiety, RA, & thrombocytopenia presents with onset Sunday evening of SOB & cough producing scant greenish phlegm without F/C, sweats, N/V , diarrhea, chest pain, or palpitations. He does experience some light- headedness with the worst of the coughing spells. He denies exacerbating or alleviating factors. PMedHx COPD bladder CA s/p transurethral resection & BCG warm autoimmune hemolytic anemia thrombocytopenia rheumatoid arthritis DM anxiety Ambulatory Orders PARoxetine HCL TAB* [Paxil TAB*] 20 mg PO DAILY 10/02/12 Budesonide/Formote 160/4.5(NF) [Symbicort 160/4.5 (NF)] 1 puff INH BID 03/06/17 Finasteride [Proscar] 5 mg PO DAILY 03/06/17 Insulin Glargine,Hum.rec.anlog [Lantus Solostar 5x3 ML PENS] 23 units SUBCUT DAILY 03/06/17 Insulin Lispro [Humalog Kwikpen] 0 unit SUBCUT . DIRECTED 03/06/17 Budesonide/Formote 160/4.5(NF) [Symbicort 160/4.5 (NF)] 2 puff INH BID 07/20/17 Fluticasone NASAL SPRAY 50MCG* [Flonase NASAL SPRAY 50MCG*] 2 spray BOTH NARES DAILY 07/20/17 Hydroxychloroquine TAB* [Plaquenil TAB*] 400 mg PO DAILY 07/20/17 Levalbuterol HFA INHALER* [Xopenex Hfa Inhaler*] 2 puff INH Q6H PRN 07/20/17 Vitamin B Complex CAP* [B Complex CAP*] 1 cap PO DAILY 07/20/17 Allergies Sulfa (Sulfonamide Antibiotics) Allergy (Mild, Verified 06/18/17 13:37) GI Upset ENVIRONMENTAL Allergy (Uncoded 03/07/17 13:14) NASAL CONGESTION PSurgHx wisdom teeth extraction SocHx: quit smoking >5 years ago w/ ~20 PYHX, no alcohol or recreational drugs; , lives alone; disabled, formerly worked construction; full code status FamHx: positive for leukemia, brain cancer, [place] lymphoma, renal cell CA, & CAD ROS: as above, otherwise reviewed and all were negative vitals: Vital Signs Temp 36.8 C 07/20/17 02:34 Pulse 100 07/20/17 02:34 Resp 18 07/20/17 02:34 BP 128/57 07/20/17 02:34 Pulse Ox 97 07/20/17 02:34 Intake & Output 07/19/17 07/19/17 07/20/17 11:59 23:59 11:59 Intake Total 1999 Balance 1999 Weight 72.575 kg 73.028 kg Intake: IV Fluids 1000 IVPB 1000 Constitutional: NAD, normally developed, well-nourished white male HEENM: atraumatic; sclera/conjunctiva: anicteric/clear; hearing: clinically intact; oropharynx: clear, mucosa moist Neck: soft tissue: non-tender; thyroid: normal Pulmonary: clear to auscultation bilaterally, good aeration, no accessory muscle use CV: RR/RR, normal S1S2, no carotid bruit, no jugular venous distention, 2+ B DP/ PT, no edema Abdominal: soft, non-distended, non-tender, no rebound/guarding/rigidity, normoactive bowel sounds, no hepatosplenomegaly or masses, no costovertebral angle tenderness Musculoskeletal: general: grossly intact, no tenderness w/ palpation Integumental: normal appearance and texture of exposed skin Psychiatric orientation: AA&O to PPS affect: calm mood: cooperative eye contact: good content: reliable responses: timely insight: good Testing: Lab Results 07/19/17 07/19/17 07/19/17 Range/Units 22:28 22:28 23:38 WBC 10.8 (3.5-10.8) 10^3/ul RBC 5.14 (4.0-5.4) 10^6/ul Hgb 14.4 (14.0-18.0) g/dl Hct 43 (42-52) % MCV 83 (80-94) fL MCH 28 (27-31) pg MCHC 34 (31-36) g/dl RDW 14 (10.5-15) % Plt Count 265 (150-450) 10^3/ul MPV 6.5 L (7.4-10.4) um3 Neut % (Auto) 55.9 (38-83) % Lymph % (Auto) 12.7 L (25-47) % [place] % (Auto) 11.2 H (0-7) % Eos % (Auto) 19.0 H (0-6) % Baso % (Auto) 1.2 (0-2) % Absolute Neuts (auto) 6.0 (1.5-7.7) 10^3/ul Absolute Lymphs (auto) 1.4 (1.0-4.8) 10^3/ul Absolute Monos (auto) 1.2 H (0-0.8) 10^3/ul Absolute Eos (auto) 2.0 H (0-0.6) 10^3/ul Absolute Basos (auto) 0.1 (0-0.2) 10^3/ul Absolute Nucleated RBC 0 10^3/ul Nucleated RBC % 0.1 Sodium 142 (139-145) mmol/L Potassium 4.2 (3.5-5.0) mmol/L Chloride 106 (101-111) mmol/L Carbon Dioxide 29 (22-32) mmol/L Anion Gap 7 (2-11) mmol/L BUN 13 (6-24) mg/dL Creatinine 0.96 (0.67-1.17) mg/dL Est GFR ( Amer) 101.7 (>60) Est GFR (Non-Af Amer) 79.1 (>60) BUN/Creatinine Ratio 13.5 (8-20) Glucose 44 L (70-100) mg/dL POC Glucose (mg/dL) 149 H (70-100) mg/dL Calcium 8.9 (8.6-10.3) mg/dL ECG, personally reviewed: NSR rate 90, no ischemia CXR, personally reviewed: no acute process Impression: 62M HX COPD, bladder CA s/p transurethral resection & BCG, warm autoimmune hemolytic anemia, thrombocytopenia, rheumatoid arthritis, & DM presents with COPD exacerbation DIAGNOSIS & PLAN Primary COPD exacerbation : albuterol nebs : mometasone/formoterol : tiotropium : IV methylprednisolone : PO levofloxacin : supplemental oxygen : guaifenesin : supportive care Secondary bladder CA s/p transurethral resection & BCG : continue outpatient surveillance warm autoimmune hemolytic anemia : no acute issues thrombocytopenia : currently normal rheumatoid arthritis : continue hydroxychloroquine DM : update A1c : insulin carb ratio diet : basal/bolus/correctional insulin anxiety : continue paroxetine BPH : continue finasteride Admission Rational: inpatient for COPD exacerbation not anticipated to be adequately controlled w/i 48h to allow for discharge DVTp: heparin SQ Code Status: full HCP: sister: Jessica
[2017-07-20] MEDS ORDERED: Albuterol 2.5 MG/3 ML NEB.SOL* (0.083%) INH PRN (04:50)
[2017-07-20] MEDS ORDERED: Acetaminophen TAB* 325 MG PO PRN (04:50)
[2017-07-20] MEDS ORDERED: CMCS: Melatonin (NF) 3 MG TAB PO PRN (04:50)
[2017-07-20] MEDS ORDERED: Ondansetron INJ* 2 MG/ML VIAL IV PRN (04:51)
[2017-07-20 06:28] LABS: ABS Basophils 0 10^3/ul (0-0.2); ABS Eosinophils 0 10^3/ul (0-0.6); ABS Lymphocytes 0.3 10^3/ul (1.0-4.8); ABS Monocytes 0.1 10^3/ul (0-0.8); ABS Neutrophils 6.1 10^3/ul (1.5-7.7); ABS Nucleated RBC 0 10^3/ul; Eosinophil % 0.6 % (0-6); Hematocrit 41 % (42-52); Hemoglobin 13.6 g/dl (14.0-18.0); Lymphocyte % 5.1 % (25-47); Mean Corpuscular HGB Conc 33 g/dl (31-36); Mean Corpuscular Hemoglobin 28 pg (27-31); Mean Corpuscular Volume 85 fL (80-94); Mean Platelet Volume 6.7 um3 (7.4-10.4); Nucleated Red Blood Cells % 0; Platelet Count 212 10^3/ul (150-450); Red Blood Count 4.84 10^6/ul (4.0-5.4); Red Cell Distribution Width 14 % (10.5-15); White Blood Count 6.6 10^3/ul (3.5-10.8)
[2017-07-20] MEDS: Omeprazole CAP* 20 MG PO SCH (06:31)
[2017-07-20] MEDS: methylPREDNISolone SOD 40 MG* 1 ML VIAL IV SCH ×3 (06:31→22:09)
[2017-07-20 06:54] LABS: EGFR Non-African American 75.5 (>60)
[2017-07-20] MEDS ORDERED: Insulin LISPRO* 1 UNITS UNIT SUBCUT SCH (07:30)
--- NOTE | 2017-07-20 07:39 | RAD ---
HISTORY: COPD, shortness of breath COMPARISONS: January 31, 2017 VIEWS: 4: Frontal dual-energy and lateral views of the chest. FINDINGS: CARDIOMEDIASTINAL SILHOUETTE: The cardiomediastinal silhouette is normal. SWAPNA: The swapna are normal. PLEURA: The costophrenic angles are sharp. No pleural abnormalities are noted. LUNG PARENCHYMA: There is minimal patchy alveolar opacification of the left lower lung on the frontal projection, localizing to the lingula. ABDOMEN: The upper abdomen is clear. There is no subphrenic gas. BONES AND SOFT TISSUES: No bone or soft tissue abnormalities are noted. OTHER: None. IMPRESSION: MINIMAL PATCHY AIRSPACE DISEASE OF THE LEFT LUNG BASE. RECOMMEND FOLLOW-UP UNTIL RESOLUTION TO EXCLUDE UNDERLYING PULMONARY PARENCHYMAL PATHOLOGY.
[2017-07-20] MEDS: Tiotropium CAP.INH* CAP.INH/18 MCG (USE ORDER SET !) INH SCH (07:41)
[2017-07-20] MEDS: Albuterol 2.5 MG/3 ML NEB.SOL* (0.083%) INH SCH ×3 (07:41→19:11)
[2017-07-20] MEDS: Mometasone/Formoter 200/5 MDI INH SCH ×2 (07:42→19:11)
[2017-07-20] MEDS: NS 0.9% 1000 ML* 1,000 ML IV SCH (07:46)
--- NOTE | 2017-07-20 08:43 | PN ---
Subjective Date of Service: 07/20/17 Interval History: Patient was seen and examined at bedside. Reports feeling much better today. Breathing has improved with nebs and supplemental oxygen. Cough is better, Mucinex is helping per patient. Denies chest pain, palpitations, SOB, fever or chills. I was notified about his POC blood glucose this AM, >400, lab confirmed value of 400. He has no c/o today. Family History: Unchanged from Admission Social History: Unchanged from Admission Past Medical History: Unchanged from Admission Objective Active Medications: Acetaminophen (Tylenol Tab*) 650 mg PO Q6H PRN PRN Reason: FEVER/PAIN Albuterol (Ventolin 2.5 Mg/3 Ml Neb.Portia*) 2.5 mg INH Q2H PRN PRN Reason: SOB/WHEEZING Albuterol (Ventolin 2.5 Mg/3 Ml Neb.Portia*) 2.5 mg INH [id number] AWAKE [facility] Last Admin: 07/20/17 07:41 Dose: 2.5 mg Device (Tiotropium Inhaler Device*) 1 each INH 0900 ONE Stop: 07/20/17 09:01 Docusate Sodium (Colace Cap*) 200 mg PO BID RICHARD Finasteride (Proscar Tab*) 5 mg PO DAILY RICHARD Guaifenesin (Mucinex*) 1,200 mg PO BID [facility] Heparin Sodium (Porcine) (Heparin Vial(*)) 5,000 units SUBCUT Q8HR [facility] Hydroxychloroquine Sulfate (Plaquenil Tab*) 400 mg PO DAILY [facility] Sodium Chloride (Ns 0.9% 1000 Ml*) 1,000 mls @ 50 mls/hr IV PER RATE [facility] Last Admin: 07/20/17 07:46 Dose: 50 mls/hr Insulin Glargine (Lantus(*)) 18 units 0.24 units/kg (18 units) SUBCUT 2100 [facility] Stop: 07/21/17 20:00 Insulin Human Lispro (Humalog*) 0 units SUBCUT AC RICHARD PRN Reason: Protocol Insulin Human Lispro (Humalog*) 0 units SUBCUT ACHS RICHARD PRN Reason: Protocol Levofloxacin (Levaquin Tab*) 500 mg PO Q24H RICHARD Melatonin (Melatonin (Nf)) 3 mg PO BEDTIME PRN; Protocol PRN Reason: Sleep Methylprednisolone Sodium Succinate (Solu-Medrol 40 Mg) 40 mg IV Q8H [facility] Last Admin: 07/20/17 06:31 Dose: 40 mg Mometasone Furoate/Formoterol Fumar (Dulera 200/5 Mdi*) 2 puff INH BID [facility] Last Admin: 07/20/17 07:42 Dose: 2 puff Omeprazole (Prilosec Cap*) 20 mg PO DAILY@0600 [facility] Last Admin: 07/20/17 06:31 Dose: Not Given Ondansetron HCl (Zofran Inj*) 4 mg IV Q6H PRN PRN Reason: NAUSEA Paroxetine HCl (Paxil Tab*) 20 mg PO DAILY [facility] Tiotropium Clark (Spiriva Cap.Inh*) 1 cap INH DAILY [facility] Last Admin: 07/20/17 07:41 Dose: 1 cap Vital Signs - 8 hr 07/20/17 07/20/17 07/20/17 01:00 01:30 01:46 Temperature Pulse Rate 109 110 Respiratory 16 15 18 Rate Blood Pressure 109/50 127/55 (mmHg) O2 Sat by Pulse 94 95 Oximetry 07/20/17 07/20/17 07/20/17 01:50 02:34 07:48 Temperature 98.3 F 98.2 F Pulse Rate 109 100 90 Respiratory 20 18 16 Rate Blood Pressure 127/55 128/57 (mmHg) O2 Sat by Pulse 97 97 98 Oximetry Oxygen Devices in Use Now: Nasal Cannula Appearance: Alert and oriented, sitting up on his bed, appears comfortable and in NAD Eyes: No Scleral Icterus, PERRLA Ears/Nose/Mouth/Throat: Clear Oropharnyx, Mucous Membranes Moist Neck: NL Appearance and Movements; NL JVP, Trachea Midline Respiratory: Symmetrical Chest Expansion and Respiratory Effort, Clear to Auscultation, - - Decreased breath sounds at the bases, no wheezes or rhonchi. Cardiovascular: NL Sounds; No Murmurs; No JVD, RRR Abdominal: NL Sounds; No Tenderness; No Distention, No Hepatosplenomegaly Lymphatic: No Cervical Adenopathy Extremities: No Edema, No Clubbing, Cyanosis Neurological: Alert and Oriented x 3, NL Sensation Lines/Tubes/Other Access: Clean, Dry and Intact Peripheral IV Nutrition: Taking PO's Result Diagrams: 07/20/17 05:56 07/20/17 05:56 Additional Lab and Data: Lab Results 07/19/17 07/19/17 07/19/17 Range/Units 22:28 22:28 23:38 WBC 10.8 (3.5-10.8) 10^3/ul RBC 5.14 (4.0-5.4) 10^6/ul Hgb 14.4 (14.0-18.0) g/dl Hct 43 (42-52) % MCV 83 (80-94) fL MCH 28 (27-31) pg MCHC 34 (31-36) g/dl RDW 14 (10.5-15) % Plt Count 265 (150-450) 10^3/ul MPV 6.5 L (7.4-10.4) um3 Neut % (Auto) 55.9 (38-83) % Lymph % (Auto) 12.7 L (25-47) % [place] % (Auto) 11.2 H (0-7) % Eos % (Auto) 19.0 H (0-6) % Baso % (Auto) 1.2 (0-2) % Absolute Neuts (auto) 6.0 (1.5-7.7) 10^3/ul Absolute Lymphs (auto) 1.4 (1.0-4.8) 10^3/ul Absolute Monos (auto) 1.2 H (0-0.8) 10^3/ul Absolute Eos (auto) 2.0 H (0-0.6) 10^3/ul Absolute Basos (auto) 0.1 (0-0.2) 10^3/ul Absolute Nucleated RBC 0 10^3/ul Nucleated RBC % 0.1 Sodium 142 (139-145) mmol/L Potassium 4.2 (3.5-5.0) mmol/L Chloride 106 (101-111) mmol/L Carbon Dioxide 29 (22-32) mmol/L Anion Gap 7 (2-11) mmol/L BUN 13 (6-24) mg/dL Creatinine 0.96 (0.67-1.17) mg/dL Est GFR ( Amer) 101.7 (>60) Est GFR (Non-Af Amer) 79.1 (>60) BUN/Creatinine Ratio 13.5 (8-20) Glucose 44 L (70-100) mg/dL POC Glucose (mg/dL) 149 H (70-100) mg/dL Calcium 8.9 (8.6-10.3) mg/dL Diagnostic Imaging: Patient Name: MARY ANN SOLIZ Medical Record#: [id number] Ordering Physician: Ted Magana MD Acct.#: [id number] : 1955 Age: 62 Sex: M Location: [address] [place] [address] MEDICAL Exam Date: 07/19/172203 ADM Status: ADM IN Order Information: CHEST PA & LAT 2 VWS Accession Number: [id number] CPT: 54354 HISTORY: COPD, shortness of breath COMPARISONS: January 31, 2017 IMPRESSION: MINIMAL PATCHY AIRSPACE DISEASE OF THE LEFT LUNG BASE. RECOMMEND FOLLOW-UP UNTIL RESOLUTION TO EXCLUDE UNDERLYING PULMONARY PARENCHYMAL PATHOLOGY. EKG Data: EKG INTERPRETATION ECG Report Patient Name MARY ANN SOLIZ Birthdate 1955 Sex M Order Number [id number] Date of ECG 07/19/2017 20:26:21 Interpretation Sinus rhythm.normal P axis, V-rate 60- 99 Short NE interval.NE <110mS - BORDERLINE ECG - Assess/Plan/Problems-Billing Assessment: A 62 y/o male with Hx CPOD, bladder CA, insulin dependent DM, who presented to ED with worsening productive cough and SOB, and was found to have COPD exacerbations. - Patient Problems (1) COPD exacerbation Current Visit: Yes Status: Acute Comment: - Continue nebs - IV methylprednisolone - PO levofloxacin - Supplemental oxygen, improving with 2L/min via NC - Guaifenesin, cough improving - - Supportive care (2) Insulin dependent diabetes mellitus Current Visit: Yes Status: Acute SNOMED Code(s): 09747246 Comment: - Hyerglycemia worsened with use of prednisone - Will continue Lantus - Humolog coverage per sliding scale, increasing scale dose and adding insulin/ carb ration with meals - Check HgA1c, value 7.4 indicating chronic inadequate glycemic control (3) Hx of carcinoma of bladder Current Visit: No Status: Chronic Comment: - Stable, no further treatment with BCG (4) History of hemolytic anemia Current Visit: No Status: Resolved Comment: - Resolved (5) H/O thrombocytopenia Current Visit: Yes Status: Resolved Comment: - Resolved - Patient thinks it was a reaction to some antibiotics he recieved in ED a while ago (6) Rheumatoid arthritis Current Visit: No Comment: - Stable, continue hydroxychloroquine (7) DVT prophylaxis Current Visit: Yes Comment: - On subQ Heparin (8) Full code status Current Visit: Yes Comment: He is full code Status and Disposition: Inpatient for antibiotics, neb treatments and glycemic control. Anticipate discharge when medically stable.
[2017-07-20] MEDS ORDERED: Spiriva Inhaler DEVICE* 1 EACH DEVICE INH ONE (09:00)
[2017-07-20] MEDS: Insulin LISPRO* 1 UNITS UNIT SUBCUT SCH ×7 (09:43→20:59)
[2017-07-20] MEDS: guaiFENesin ER TAB 600 MG PO SCH ×2 (09:44→20:58)
[2017-07-20] MEDS: Finasteride TAB* 5 MG PO SCH (09:44)
[2017-07-20] MEDS: Docusate CAP* 100 MG PO SCH ×3 (09:44→20:53)
[2017-07-20] MEDS: Hydroxychloroquine TAB* 200 MG PO SCH (09:44)
[2017-07-20] MEDS: PARoxetine HCL TAB* 20 MG PO SCH (09:45)
[2017-07-20] MEDS: Levofloxacin TAB* 500 MG PO SCH (22:09)
[2017-07-21] MEDS: Albuterol 2.5 MG/3 ML NEB.SOL* (0.083%) INH SCH ×4 (00:46→19:20)
[2017-07-21] MEDS ORDERED: Insulin GLARGINE(*) 1 UNITS UNIT SUBCUT SCH ×5 (01:30→21:00)
[2017-07-21] MEDS: NS 0.9% 1000 ML* 1,000 ML IV SCH (03:15)
[2017-07-21] MEDS: Omeprazole CAP* 20 MG PO SCH (05:33)
[2017-07-21] MEDS: methylPREDNISolone SOD 40 MG* 1 ML VIAL IV SCH (05:38)
[2017-07-21] MEDS: Heparin VIAL(*) 5000 UNITS/ML VIAL (FIVE THOUSAND) SUBCUT SCH ×3 (05:38→21:33)
[2017-07-21] MEDS: Mometasone/Formoter 200/5 MDI INH SCH ×2 (07:21→19:21)
[2017-07-21] MEDS: Tiotropium CAP.INH* CAP.INH/18 MCG (USE ORDER SET !) INH SCH (07:21)
--- NOTE | 2017-07-21 08:13 | RAD ---
INDICATION: COPD exacerbation and cough COMPARISON: Most recent comparison chest x-rays dated July 19, 2017 TECHNIQUE: Single AP portable view of the chest was obtained. FINDINGS: Image quality is compromised due to the relative inferiority of a portable chest x-ray. The heart and mediastinum exhibit normal size and contour. The lungs are grossly clear. There is no evidence of a large pleural effusion. Visualized bones are normal for the patient's age. IMPRESSION: No radiographic evidence for acute cardiopulmonary abnormality on this portable chest x-ray.
[2017-07-21] MEDS ORDERED: Insulin LISPRO* 1 UNITS UNIT SUBCUT ONE (08:41)
[2017-07-21] MEDS ORDERED: Dextrose 50% Syringe 50 ML* 25 GM/50 ML SYRINGE IV PUSH PRN ×2 (08:41→10:45)
[2017-07-21] MEDS: Insulin LISPRO* 1 UNITS UNIT SUBCUT SCH ×9 (08:49→21:33)
[2017-07-21] MEDS: Finasteride TAB* 5 MG PO SCH (09:01)
[2017-07-21] MEDS: PARoxetine HCL TAB* 20 MG PO SCH (09:01)
[2017-07-21] MEDS: Hydroxychloroquine TAB* 200 MG PO SCH (09:01)
[2017-07-21] MEDS: guaiFENesin ER TAB 600 MG PO SCH ×2 (09:01→21:29)
[2017-07-21] MEDS: Docusate CAP* 100 MG PO SCH ×2 (09:02→21:31)
--- NOTE | 2017-07-21 10:43 | PN ---
Subjective Date of Service: 07/21/17 Interval History: Patient reports he feels much better today compared to yesterday; continues to have a harsh cough with occasional sputum production.Reports sob with exertion. Denies CP. Denies fever or chills.Reports good appetite. No N/V/D. Family History: Unchanged from Admission Social History: Unchanged from Admission Past Medical History: Unchanged from Admission Objective Active Medications: Acetaminophen (Tylenol Tab*) 650 mg PO Q6H PRN PRN Reason: FEVER/PAIN Albuterol (Ventolin 2.5 Mg/3 Ml Neb.Portia*) 2.5 mg INH Q2H PRN PRN Reason: SOB/WHEEZING Albuterol (Ventolin 2.5 Mg/3 Ml Neb.Portia*) 2.5 mg INH [id number] AWAKE [facility] Last Admin: 07/21/17 07:20 Dose: 2.5 mg Dextrose (D50w Syringe 50 Ml*) 12.5 gm IV PUSH .FOR FS < 60 - SS PRN PRN Reason: FS < 60 Docusate Sodium (Colace Cap*) 200 mg PO BID [facility] Last Admin: 07/21/17 09:02 Dose: Not Given Finasteride (Proscar Tab*) 5 mg PO DAILY [facility] Last Admin: 07/21/17 09:01 Dose: 5 mg Guaifenesin (Mucinex*) 1,200 mg PO BID [facility] Last Admin: 07/21/17 09:01 Dose: 1,200 mg Heparin Sodium (Porcine) (Heparin Vial(*)) 5,000 units SUBCUT Q8HR [facility] Last Admin: 07/21/17 05:38 Dose: 5,000 units Hydroxychloroquine Sulfate (Plaquenil Tab*) 400 mg PO DAILY [facility] Last Admin: 07/21/17 09:01 Dose: 400 mg Insulin Glargine (Lantus(*)) 18 units 0.24 units/kg (18 units) SUBCUT 0130 [facility] Stop: 07/21/17 20:00 Last Admin: 07/21/17 01:34 Dose: 18 unit Insulin Human Lispro (Humalog*) 0 units SUBCUT AC [facility] PRN Reason: Protocol Last Admin: 07/21/17 09:02 Dose: 2 units Insulin Human Lispro (Humalog*) 0 units SUBCUT ACHS [facility] PRN Reason: Protocol Last Admin: 07/21/17 08:49 Dose: Not Given Levofloxacin (Levaquin Tab*) 500 mg PO Q24H [facility] Last Admin: 07/20/17 22:09 Dose: 500 mg Melatonin (Melatonin (Nf)) 3 mg PO BEDTIME PRN; Protocol PRN Reason: Sleep Methylprednisolone Sodium Succinate (Solu-Medrol 40 Mg) 40 mg IV Q8H [facility] Last Admin: 07/21/17 05:38 Dose: 40 mg Mometasone Furoate/Formoterol Fumar (Dulera 200/5 Mdi*) 2 puff INH BID [facility] Last Admin: 07/21/17 07:21 Dose: 2 puff Omeprazole (Prilosec Cap*) 20 mg PO DAILY@0600 [facility] Last Admin: 07/21/17 05:33 Dose: Not Given Ondansetron HCl (Zofran Inj*) 4 mg IV Q6H PRN PRN Reason: NAUSEA Paroxetine HCl (Paxil Tab*) 20 mg PO DAILY [facility] Last Admin: 07/21/17 09:01 Dose: 20 mg Tiotropium [place] (Spiriva Cap.Inh*) 1 cap INH DAILY [facility] Last Admin: 07/21/17 07:21 Dose: 1 cap Vital Signs - 8 hr 07/21/17 07/21/17 07/21/17 03:29 07:18 07:56 Temperature 97.4 F Pulse Rate 82 84 Respiratory 18 18 Rate Blood Pressure 118/55 (mmHg) O2 Sat by Pulse 98 95 95 Oximetry 07/21/17 08:48 Temperature Pulse Rate 91 Respiratory Rate Blood Pressure 122/56 (mmHg) O2 Sat by Pulse 95 Oximetry Oxygen Devices in Use Now: Nasal Cannula Appearance: 62 yo well developed male sitting up in bed watching tv in [facility]. A+O x3 Eyes: No Scleral Icterus, PERRLA Ears/Nose/Mouth/Throat: NL Teeth, Lips, Gums, Mucous Membranes Moist Neck: NL Appearance and Movements; NL JVP Respiratory: Symmetrical Chest Expansion and Respiratory Effort, - - diminished b/l with mild scattered rhonchi; no wheexing noted Cardiovascular: NL Sounds; No Murmurs; No JVD, RRR, No Edema Abdominal: NL Sounds; No Tenderness; No Distention Extremities: No Edema, No Clubbing, Cyanosis Skin: No Rash or Ulcers, No Nodules or Sclerosis Neurological: Alert and Oriented x 3, NL Sensation, NL Muscle Strength and Tone Lines/Tubes/Other Access: Clean, Dry and Intact Peripheral IV Nutrition: Taking PO's Result Diagrams: 07/20/17 05:56 07/20/17 05:56 Additional Lab and Data: Lab Results 07/19/17 07/19/17 07/19/17 Range/Units 22:28 22:28 23:38 WBC 10.8 (3.5-10.8) 10^3/ul RBC 5.14 (4.0-5.4) 10^6/ul Hgb 14.4 (14.0-18.0) g/dl Hct 43 (42-52) % MCV 83 (80-94) fL MCH 28 (27-31) pg MCHC 34 (31-36) g/dl RDW 14 (10.5-15) % Plt Count 265 (150-450) 10^3/ul MPV 6.5 L (7.4-10.4) um3 Neut % (Auto) 55.9 (38-83) % Lymph % (Auto) 12.7 L (25-47) % [place] % (Auto) 11.2 H (0-7) % Eos % (Auto) 19.0 H (0-6) % Baso % (Auto) 1.2 (0-2) % Absolute Neuts (auto) 6.0 (1.5-7.7) 10^3/ul Absolute Lymphs (auto) 1.4 (1.0-4.8) 10^3/ul Absolute Monos (auto) 1.2 H (0-0.8) 10^3/ul Absolute Eos (auto) 2.0 H (0-0.6) 10^3/ul Absolute Basos (auto) 0.1 (0-0.2) 10^3/ul Absolute Nucleated RBC 0 10^3/ul Nucleated RBC % 0.1 Sodium 142 (139-145) mmol/L Potassium 4.2 (3.5-5.0) mmol/L Chloride 106 (101-111) mmol/L Carbon Dioxide 29 (22-32) mmol/L Anion Gap 7 (2-11) mmol/L BUN 13 (6-24) mg/dL Creatinine 0.96 (0.67-1.17) mg/dL Est GFR ( Amer) 101.7 (>60) Est GFR (Non-Af Amer) 79.1 (>60) BUN/Creatinine Ratio 13.5 (8-20) Glucose 44 L (70-100) mg/dL POC Glucose (mg/dL) 149 H (70-100) mg/dL Calcium 8.9 (8.6-10.3) mg/dL Diagnostic Imaging: Patient Name: MARY ANN SOLIZ Medical Record#: [id number] Ordering Physician: Ted Magana MD Acct.#: [id number] : 1955 Age: 62 Sex: M Location: [address] [place] [address] - MEDICAL Exam Date: 07/19/172203 ADM Status: ADM IN Order Information: CHEST PA & LAT 2 VWS Accession Number: [id number] CPT: 03631 HISTORY: COPD, shortness of breath COMPARISONS: January 31, 2017 IMPRESSION: MINIMAL PATCHY AIRSPACE DISEASE OF THE LEFT LUNG BASE. RECOMMEND FOLLOW-UP UNTIL RESOLUTION TO EXCLUDE UNDERLYING PULMONARY PARENCHYMAL PATHOLOGY. EKG Data: EKG INTERPRETATION ECG Report Patient Name MARY ANN SOLIZ Birthdate 1955 Sex M Order Number [id number] Date of ECG 07/19/2017 20:26:21 Interpretation Sinus rhythm.normal P axis, V-rate 60- 99 Short OH interval.OH <110mS - BORDERLINE ECG - Assess/Plan/Problems-Billing Assessment: A 62 y/o male with Hx CPOD, bladder CA, insulin dependent DM, who presented to ED with worsening productive cough and SOB, and was found to have COPD exacerbations. - Patient Problems (1) COPD exacerbation Comment: - Continue nebs - Switch IV methylprednisolone to PO prednisone - PO levofloxacin - Supplemental oxygen, improving with 2L/min via NC - Guaifenesin, cough improving - - Supportive care (2) Insulin dependent diabetes mellitus Comment: - Hyerglycemia worsened with use of solumedrol - Home dose Lantus 23 units, increase this 25 units QHS - Humalog coverage per sliding scale, increasing scale dose and adding insulin/ carb ration with meals - Check HgA1c, value 7.4 indicating chronic inadequate glycemic control (3) Rheumatoid arthritis Comment: - Stable, continue hydroxychloroquine (4) Hx of carcinoma of bladder Comment: - Stable, no further treatment with BCG (5) DVT prophylaxis Comment: - On subQ Heparin (6) Full code status Comment: He is full code Status and Disposition: Inpatient for antibiotics, neb treatments and glycemic control. Anticipate discharge when medically stable.
[2017-07-21] MEDS ORDERED: Insulin GLARGINE(*) 1 UNITS UNIT ONE (11:14)
[2017-07-21] MEDS ORDERED: Insulin GLARGINE(*) 1 UNITS UNIT SUBCUT ONE (11:15)
[2017-07-21] MEDS ORDERED: Insulin LISPRO* 1 UNITS UNIT SUBCUT SCH (11:30)
[2017-07-21] MEDS: Levofloxacin TAB* 500 MG PO SCH (21:30)
[2017-07-22] MEDS: Albuterol 2.5 MG/3 ML NEB.SOL* (0.083%) INH SCH ×3 (00:29→13:09)
[2017-07-22] MEDS: Omeprazole CAP* 20 MG PO SCH (05:28)
[2017-07-22] MEDS: Heparin VIAL(*) 5000 UNITS/ML VIAL (FIVE THOUSAND) SUBCUT SCH ×2 (05:43→13:30)
[2017-07-22] MEDS: Tiotropium CAP.INH* CAP.INH/18 MCG (USE ORDER SET !) INH SCH (07:12)
[2017-07-22] MEDS: Mometasone/Formoter 200/5 MDI INH SCH (07:12)
[2017-07-22 07:17] LABS: ABS Basophils 0.2 10^3/ul (0-0.2); ABS Eosinophils 0 10^3/ul (0-0.6); ABS Lymphocytes 1.5 10^3/ul (1.0-4.8); ABS Monocytes 0.7 10^3/ul (0-0.8); ABS Neutrophils 7.3 10^3/ul (1.5-7.7); ABS Nucleated RBC 0 10^3/ul; Eosinophil % 0.4 % (0-6); Hematocrit 40 % (42-52); Hemoglobin 13.4 g/dl (14.0-18.0); Mean Corpuscular HGB Conc 34 g/dl (31-36); Mean Corpuscular Hemoglobin 28 pg (27-31); Mean Corpuscular Volume 85 fL (80-94); Mean Platelet Volume 6.5 um3 (7.4-10.4); Nucleated Red Blood Cells % 0; Platelet Count 211 10^3/ul (150-450); Red Blood Count 4.73 10^6/ul (4.0-5.4); Red Cell Distribution Width 14 % (10.5-15); White Blood Count 9.7 10^3/ul (3.5-10.8)
[2017-07-22 07:38] LABS: EGFR Non-African American 77.2 (>60)
[2017-07-22] MEDS: Insulin LISPRO* 1 UNITS UNIT SUBCUT SCH ×4 (07:50→13:31)
[2017-07-22] MEDS ORDERED: predniSONE TAB* 20 MG PO SCH (09:00)
[2017-07-22] MEDS: guaiFENesin ER TAB 600 MG PO SCH (09:50)
[2017-07-22] MEDS: Finasteride TAB* 5 MG PO SCH (09:50)
[2017-07-22] MEDS: PARoxetine HCL TAB* 20 MG PO SCH (09:51)
[2017-07-22] MEDS: Hydroxychloroquine TAB* 200 MG PO SCH (09:57)
[2017-07-22] MEDS: Docusate CAP* 100 MG PO SCH (09:58)
--- NOTE | 2017-07-22 16:07 | DCNOTE ---
Subjective Date of Service: 07/22/17 Interval History: Pt reports he feels much much better today and would like to go home. Denies SOB. Reports his cough has improved. No fevers or chills. Good appetite. Family History: Unchanged from Admission Social History: Unchanged from Admission Past Medical History: Unchanged from Admission Objective Active Medications: Acetaminophen (Tylenol Tab*) 650 mg PO Q6H PRN PRN Reason: FEVER/PAIN Albuterol (Ventolin 2.5 Mg/3 Ml Neb.Portia*) 2.5 mg INH Q2H PRN PRN Reason: SOB/WHEEZING Albuterol (Ventolin Hfa Inhaler*) 2 puff INH [id number] AWAKE [facility] Dextrose (D50w Syringe 50 Ml*) 12.5 gm IV PUSH .FOR FS < 60 - SS PRN PRN Reason: FS < 60 Docusate Sodium (Colace Cap*) 200 mg PO BID [facility] Last Admin: 07/22/17 09:58 Dose: Not Given Finasteride (Proscar Tab*) 5 mg PO DAILY [facility] Last Admin: 07/22/17 09:50 Dose: 5 mg Guaifenesin (Mucinex*) 1,200 mg PO BID [facility] Last Admin: 07/22/17 09:50 Dose: 1,200 mg Heparin Sodium (Porcine) (Heparin Vial(*)) 5,000 units SUBCUT Q8HR [facility] Last Admin: 07/22/17 13:30 Dose: 5,000 units Hydroxychloroquine Sulfate (Plaquenil Tab*) 400 mg PO DAILY [facility] Last Admin: 07/22/17 09:57 Dose: 400 mg Insulin Glargine (Lantus(*)) 23 units SUBCUT Q24H [facility] Last Admin: 07/22/17 02:02 Dose: 23 units Insulin Human Lispro (Humalog*) 0 units SUBCUT AC [facility] PRN Reason: Protocol Last Admin: 07/22/17 13:29 Dose: 2 units Insulin Human Lispro (Humalog*) 0 units SUBCUT ACHS [facility] PRN Reason: Protocol Last Admin: 07/22/17 13:31 Dose: 1 units Levofloxacin (Levaquin Tab*) 500 mg PO Q24H [facility] Last Admin: 07/21/17 21:30 Dose: 500 mg Melatonin (Melatonin (Nf)) 3 mg PO BEDTIME PRN; Protocol PRN Reason: Sleep Mometasone Furoate/Formoterol Fumar (Dulera 200/5 Mdi*) 2 puff INH BID [facility] Last Admin: 07/22/17 07:12 Dose: 2 puff Omeprazole (Prilosec Cap*) 20 mg PO DAILY@0600 [facility] Last Admin: 07/22/17 05:28 Dose: Not Given Ondansetron HCl (Zofran Inj*) 4 mg IV Q6H PRN PRN Reason: NAUSEA Paroxetine HCl (Paxil Tab*) 20 mg PO DAILY [facility] Last Admin: 07/22/17 09:51 Dose: 20 mg Prednisone (Deltasone Tab*) 40 mg PO DAILY [facility] Last Admin: 07/22/17 09:50 Dose: 40 mg Tiotropium [place] (Spiriva Cap.Inh*) 1 cap INH DAILY [facility] Last Admin: 07/22/17 07:12 Dose: 1 cap Vital Signs - 8 hr 07/22/17 07/22/17 12:42 13:10 Temperature 98.0 F Pulse Rate 77 80 Respiratory 18 18 Rate Blood Pressure 112/63 (mmHg) O2 Sat by Pulse 96 99 Oximetry Oxygen Devices in Use Now: None Appearance: well developed 62 yo male sitting up in a chair in A+Ox3 - NAD Eyes: PERRLA Ears/Nose/Mouth/Throat: NL Teeth, Lips, Gums, Mucous Membranes Moist Neck: NL Appearance and Movements; NL JVP Respiratory: Symmetrical Chest Expansion and Respiratory Effort, Clear to Auscultation Cardiovascular: NL Sounds; No Murmurs; No JVD, RRR, No Edema Abdominal: NL Sounds; No Tenderness; No Distention Extremities: No Edema, No Clubbing, Cyanosis Skin: No Rash or Ulcers Neurological: Alert and Oriented x 3, NL Sensation, NL Gait, NL Muscle Strength and Tone Lines/Tubes/Other Access: Clean, Dry and Intact Peripheral IV Nutrition: Taking PO's Result Diagrams: 07/22/17 06:52 07/22/17 06:52 Additional Lab and Data: Lab Results 07/19/17 07/19/17 07/19/17 Range/Units 22:28 22:28 23:38 WBC 10.8 (3.5-10.8) 10^3/ul RBC 5.14 (4.0-5.4) 10^6/ul Hgb 14.4 (14.0-18.0) g/dl Hct 43 (42-52) % MCV 83 (80-94) fL MCH 28 (27-31) pg MCHC 34 (31-36) g/dl RDW 14 (10.5-15) % Plt Count 265 (150-450) 10^3/ul MPV 6.5 L (7.4-10.4) um3 Neut % (Auto) 55.9 (38-83) % Lymph % (Auto) 12.7 L (25-47) % [place] % (Auto) 11.2 H (0-7) % Eos % (Auto) 19.0 H (0-6) % Baso % (Auto) 1.2 (0-2) % Absolute Neuts (auto) 6.0 (1.5-7.7) 10^3/ul Absolute Lymphs (auto) 1.4 (1.0-4.8) 10^3/ul Absolute Monos (auto) 1.2 H (0-0.8) 10^3/ul Absolute Eos (auto) 2.0 H (0-0.6) 10^3/ul Absolute Basos (auto) 0.1 (0-0.2) 10^3/ul Absolute Nucleated RBC 0 10^3/ul Nucleated RBC % 0.1 Sodium 142 (139-145) mmol/L Potassium 4.2 (3.5-5.0) mmol/L Chloride 106 (101-111) mmol/L Carbon Dioxide 29 (22-32) mmol/L Anion Gap 7 (2-11) mmol/L BUN 13 (6-24) mg/dL Creatinine 0.96 (0.67-1.17) mg/dL Est GFR ( Amer) 101.7 (>60) Est GFR (Non-Af Amer) 79.1 (>60) BUN/Creatinine Ratio 13.5 (8-20) Glucose 44 L (70-100) mg/dL POC Glucose (mg/dL) 149 H (70-100) mg/dL Calcium 8.9 (8.6-10.3) mg/dL Diagnostic Imaging: Patient Name: MARY ANN SOLIZ Medical Record#: [id number] Ordering Physician: Ted Magana MD Acct.#: [id number] : 1955 Age: 62 Sex: M Location: [address] [place] [address] - MEDICAL Exam Date: 07/19/172203 ADM Status: ADM IN Order Information: CHEST PA & LAT 2 VWS Accession Number: [id number] CPT: 74135 HISTORY: COPD, shortness of breath COMPARISONS: January 31, 2017 IMPRESSION: MINIMAL PATCHY AIRSPACE DISEASE OF THE LEFT LUNG BASE. RECOMMEND FOLLOW-UP UNTIL RESOLUTION TO EXCLUDE UNDERLYING PULMONARY PARENCHYMAL PATHOLOGY. EKG Data: EKG INTERPRETATION ECG Report Patient Name MARY ANN SOLIZ Birthdate 1955 Sex M Order Number [id number] Date of ECG 07/19/2017 20:26:21 Interpretation Sinus rhythm.normal P axis, V-rate 60- 99 Short MA interval.MA <110mS - BORDERLINE ECG - Assess/Plan/Problems-Billing Assessment: A 62 y/o male with Hx CPOD, bladder CA, insulin dependent DM, who presented to ED with worsening productive cough and SOB, and was found to have COPD exacerbations. - Patient Problems (1) COPD exacerbation Comment: - Much improvement - Continue 4 days of 40 mg PO prednisone as outpt - plan to set pt up with a home neb machine - PO levofloxacin - Supportive care - f/u with PCP this week (2) Insulin dependent diabetes mellitus Comment: - Much better control. FSBG 44 last night and 54 this am - I suspect this was d/t to the amount of insulin he was givven d/t FSBG high 400's range ( 2nd to IV solumedrol). Now stable. Continue home meds. (3) Rheumatoid arthritis Comment: - Stable, continue hydroxychloroquine (4) Hx of carcinoma of bladder Comment: - Stable, no further treatment with BCG (5) DVT prophylaxis Comment: - On subQ Heparin (6) Full code status Comment: He is full code Status and Disposition: Inpatient. Plan for DC to home
[2017-07-22 16:40] VITALS: BP 112/55
[2017-07-22] MEDS ORDERED: Albuterol HFA INHALER* 8 gm MDI INH SCH (19:00)
== END 2017-07-22 18:00 | disposition home or self-care (01) | DRG 191 ==
LOC: ED 19:47 → MED 07-20 00:40
PROVIDERS: ADMIT Hospitalist; ATTEND Internal Medicine
DX: J44.1 Chronic obstructive pulmonary disease with (acute) exacerbation (principal); D59.1 Other autoimmune hemolytic anemias; E11.9 Type 2 diabetes mellitus without complications; M06.9 Rheumatoid arthritis, unspecified; F41.9 Anxiety disorder, unspecified; N40.0 Benign prostatic hyperplasia without lower urinary tract symptoms; D69.6 Thrombocytopenia, unspecified; Z85.51 Personal history of malignant neoplasm of bladder; Z79.4 Long term (current) use of insulin; Z79.899 Other long term (current) drug therapy; Z88.2 Allergy status to sulfonamides; Z91.048 Other nonmedicinal substance allergy status; Z87.891 Personal history of nicotine dependence; Z80.6 Family history of leukemia; Z80.8 Family history of malignant neoplasm of other organs or systems; Z80.7 Family history of other malignant neoplasms of lymphoid, hematopoietic and related tissues; Z80.0 Family history of malignant neoplasm of digestive organs; Z82.49 Family history of ischemic heart disease and other diseases of the circulatory system
CPT/HCPCS: 36415; 71045; 71046; 80048; 82565; 82947; 83036; 83735; 84520; 85025; 85610; 85730; 93005; 94640; 94760; 99284; A9270-GY; J1644; J2920; J7512

== ENCOUNTER 2017-09-24 09:35 | Emergency (ER) | payer MEDICARE ==
[2017-09-24 09:44] VITALS: BP 120/72
--- NOTE | 2017-09-24 15:50 | UC ---
Ja Garcia Angela, scribed for Rush Pennington MD on 09/24/17 at 0959 . Dental HPI - HPI Summary HPI Summary: This pt is a 62 y/o male presenting to [facility] c/o dental pain on the bottom right since last night. Pt reports that this same tooth that causes him pain has been fractured for a couple of months now. He notes that his pain began last night. Pt took ibuprofen with some relief. He currently rates his pain 8 out of 10 in severity. Denies drooling, discharge, bleeding, fever, chills. - History of Current Complaint Stated Complaint: TOOTHACHE Hx Obtained From: Patient Onset/Duration: Lasting Hours, Still Present Severity: Severe Pain Intensity: 8 Pain Scale Used: 0-10 Numeric Aggravating Factor(s): Nothing Alleviating Factor(s): Nothing Related History: Other - fractured tooth - Allergies/Home Medications Allergies/Adverse Reactions: Allergies Allergy/AdvReac Type Severity Reaction Status Date / Time Sulfa (Sulfonamide Allergy Mild GI Upset Verified 09/24/17 09:45 Antibiotics) ENVIRONMENTAL Allergy NASAL Uncoded 09/24/17 09:45 CONGESTION PMH/Surg Hx/FS Hx/Imm Hx Other Endocrine History: DENIES: diabetes Respiratory History: COPD, Asthma - Surgical History Surgical History: Yes Surgery Procedure, Year, and Place: bladder tumor removal [three surgeries]. BONE MARROW BX 2017. WISDOM TEETH EXTRACTION - Family History Known Family History: Negative: Cardiac Disease, Hypertension, Diabetes, Respiratory Disease - Social History Alcohol Use: None Substance Use Type: None Smoking Status (MU): Former Smoker Type: Cigarettes Amount Used/How Often: 1/2PPD Length of Time of Smoking/Using Tobacco: 40 years Have You Smoked in the Last Year: No When Did the Patient Quit Smoking/Using Tobacco: 4 years ago Household Exposure Type: Cigarettes - Immunization History Most Recent Influenza Vaccination: 2016 Most Recent Tetanus Shot: 4 years ago Most Recent Pneumonia Vaccination: several years ago Review of Systems Constitutional: Negative Skin: Negative Eyes: Negative ENT: Dental Pain Respiratory: Negative Cardiovascular: Negative Gastrointestinal: Negative Genitourinary: Negative Motor: Negative Neurovascular: Negative Musculoskeletal: Negative Neurological: Negative Psychological: Negative All Other Systems Reviewed And Are Negative: Yes Physical Exam - Summary Physical Exam Summary: VITAL SIGNS: Reviewed. GENERAL: Patient is a well-developed and nourished male who is lying comfortable in the stretcher. Patient is not in any acute respiratory distress. HEAD AND FACE: Normocephalic EYES: PERRLA, EOMI x 2. EARS: Hearing grossly intact. MOUTH: Oropharynx within normal limits. Fractured tooth #32 with tenderness. NECK: Supple, trachea is midline, no adenopathy, no JVD, no carotid bruit. CHEST: Symmetric, no tenderness at palpation LUNGS: Clear to auscultation bilaterally. No wheezing or crackles. CVS: Regular rate and rhythm, S1 and S2 present, no murmurs or gallops appreciated. ABDOMEN: Soft, non-tender. Bowel sounds are normal. No abdominal abnormal pulsations. EXTREMITIES: Full ROM in all major joints, no edema, no cyanosis or clubbing. NEURO: Alert and oriented x 3. No acute neurological deficits. Speech is normal and follows commands. SKIN: Dry and warm Triage Information Reviewed: Yes Vital Signs: Initial Vital Signs Temp 98.8 F 09/24/17 09:41 Pulse 64 09/24/17 09:41 Resp 18 09/24/17 09:41 BP 120/72 09/24/17 09:41 Pulse Ox 100 09/24/17 09:41 Vital Signs Reviewed: Yes Dental Complaint Course/Dx - Course Course Of Treatment: This pt is a 62 y/o male presenting to [facility] c/o dental pain on the bottom right since last night. Pt reports that this same tooth that causes him pain has been fractured for a couple of months now. He notes that his pain began last night. Pt took ibuprofen with some relief. Denies drooling, discharge, bleeding, fever, chills. Pt has a fractured tooth in tooth #32. He will be given a prescription for Penicillin. Pt will be discharged home with follow up from his dentist. Pt was instructed to return to the urgent care or go to ER immediately if any of the symptoms return or worsens. Plan of care was discussed with the patient and pt understands and agrees. All questions were answered to patient satisfaction. There were no further complaints or concerns. Pt is hemodynamically stable, alert and oriented x3. - Differential Dx/Diagnosis Provider Diagnoses: Fractured tooth. Infection Discharge - Sign-Out/Discharge Documenting (check all that apply): Discharge/Admit/Transfer - Discharge - Discharge Plan Condition: Stable Disposition: HOME Prescriptions: Penicillin VK TAB* [Penicillin VK 250 mg Tab*] 500 mg PO QID #40 tab Patient Education Materials: Toothache (ED) Referrals: David Kwong DROP FORGER [Primary Care Provider] - Additional Instructions: Take medications as instructed Increase your fluid intake Return to the UC if symptoms worsen The documentation as recorded by the Ja thurston Angela accurately reflects the service I personally performed and the decisions made by me, Rush Pennington MD.
== END 2017-09-24 10:05 | disposition home or self-care (01) ==
LOC: UCEAST 09:35
DX: S02.5XXA Fracture of tooth (traumatic), initial encounter for closed fracture (principal); X58.XXXA Exposure to other specified factors, initial encounter; Y93.9 Activity, unspecified; Y92.9 Unspecified place or not applicable; K04.7 Periapical abscess without sinus; J44.9 Chronic obstructive pulmonary disease, unspecified; Z88.2 Allergy status to sulfonamides; Z87.891 Personal history of nicotine dependence
CPT/HCPCS: 99212; G0463

== ENCOUNTER 2018-12-16 09:22 | Day surgery (SDC) | payer MEDICARE ==
[~2018-12-16 09:22] MED LIST changes: +Acetaminophen TAB* 325 MG PO PRN; -Buffered Lidocaine 0.9% SYRIN* 5 ML/SYR SYRINGE INTRADERM ONE; -Famotidine IV* 10 MG/ML 2 ML (20 mg) IV ONE
[2018-12-16] MEDS ORDERED: fentaNYL* 50 MCG/ML 2 ML VIAL (100 MCG VIAL) ONE (10:37)
[2018-12-16] MEDS ORDERED: Midazolam* 1 MG/ML 2 ML VIAL (2 MG) ONE (10:37)
[2018-12-16] MEDS ORDERED: Cyclopentolate 1% OPTH.SOL* 2 ML BTL ONE (11:09)
[2018-12-16] MEDS ORDERED: Neomycin/Polymy/Dex OPHTH.OIN* 3.5 GM ONE (11:09)
[2018-12-16] MEDS ORDERED: Povidone Iodine 5% OPTH* 30 ML BTL ONE (11:09)
[2018-12-16] MEDS ORDERED: Tetracaine 0.5% OPTH.SOL 4 ML* 1 DROP BTL ONE (11:09)
[2018-12-16] MEDS ORDERED: acetaZOLAMIDE TAB* 250 MG ONE (11:09)
[2018-12-16] MEDS ORDERED: Lidocaine 1% MPF ** 5 ML VIAL ONE (11:09)
[2018-12-16] MEDS ORDERED: Tropicamide 1% OPTH.SOL* BTL ONE (11:09)
[2018-12-16] MEDS ORDERED: Phenylephrine OPHTH SOL 2.5%* 2 ML ONE (11:09)
[2018-12-16] MEDS ORDERED: Ketorolac 0.5% OPHTH (NF) 0.5 % 5 ML BTL ONE (11:09)
[2018-12-16 11:58] VITALS: BP 114/58
--- NOTE | 2018-12-16 12:26 | OP ---
DATE OF OPERATION: 12/16/18 [facility] DATE OF : 53 SURGEON: Nilo Howard MD ANESTHESIA: Monitored anesthesia care. PREOPERATIVE DIAGNOSIS: Cataract, right eye. POSTOPERATIVE DIAGNOSIS: Cataract, right eye. OPERATIVE PROCEDURE: Extracapsular cataract extraction of the right eye with intraocular lens implant. IMPLANT: SN60WF 18.5 diopter lens to the right eye. COMPLICATIONS: None. DESCRIPTION OF PROCEDURE: The patient was given phenylephrine 2.5 % and cyclopentolate 1% eye drops to the operative eye in the preoperative area. The patient was taken to the operating room, where a time-out was taken to identify the correct patient, site, and side of surgery. The patient's right eye was prepped and draped in the usual sterile fashion with 5% Betadine. A second time -out was taken to verify the correct patient, side, and site of surgery, as well as the correct lens implant. A lid speculum was placed to the right eye. A 1mm paracentesis blade was used to make a clear corneal incision. Preservative-free 1% lidocaine was injected into the anterior chamber. DisCoVisc was then injected into the anterior chamber. A 2.75-mm keratome blade was used to make a triplanar incision. A cystotome initiated a capsulorrhexis, which was completed with Utrata forceps in a continuous and curvilinear manner. Hydrodissection of the lens was performed with BSS on a cannula. The lens could be spun in a capsular bag. The phacoemulsification handpiece was used with a [id number] technique to remove the nucleus. The I/A handpiece then removed the residual cortical lens material. DisCoVisc was injected to inflate the capsular bag. The planned SN60WF 18.5 diopter lens was injected into the capsular bag. The residual DisCoVisc was removed from the eye with the I/A handpiece. The corneal incisions were hydrated and no leaks occurred at physiologic pressure around 20 mmHg per palpation. The lid speculum was removed and drapes were removed. Maxitrol ointment was placed to the surface of the operative eye. An adhesive patch and shield was then placed on the operative eye. The patient was taken to the post-operative area in stable condition. [id number]/[facility] #: [id number] [facility]
== END 2018-12-16 11:52 | disposition home or self-care (01) ==
LOC: OREAST 09:22
PROVIDERS: ATTEND Student in an Organized Health Care Education/Training Program
DX: H25.11 Age-related nuclear cataract, right eye (principal); E10.3293 Type 1 diabetes mellitus with mild nonproliferative diabetic retinopathy without macular edema, bilateral; Z79.899 Other long term (current) drug therapy; M06.9 Rheumatoid arthritis, unspecified; Z79.4 Long term (current) use of insulin; K21.9 Gastro-esophageal reflux disease without esophagitis; J45.909 Unspecified asthma, uncomplicated; Z87.891 Personal history of nicotine dependence; J44.9 Chronic obstructive pulmonary disease, unspecified; F41.8 Other specified anxiety disorders
CPT/HCPCS: A9270-GY; J2250; J3010; V2632

== ENCOUNTER 2019-01-28 21:17 | Emergency (ER) | payer MEDICARE ==
--- OUTSIDE RECORDS SUMMARY | 2019-01-28 21:26 | XMS REPORT | Continuity of Care Document ---
:1955 External Reference #:[id number] Author Name David Kwong NP (transmitted by agent of provider Lianne Alfaro) Address [address] [facility], [place] [address] Care Team Providers Name Role Phone Salome Butler MD - Internal Care Team Information Supervisor [employer] Nandini Chambers MD - Internal Care Team Information Supervisor [employer] Problems Active Problems Provider Date Rheumatoid arthritis David Kwong NP Onset: 12/11/2014 Allergic asthma David Kwong NP Onset: 12/11/2014 Anxiety David Kwong NP Onset: 12/11/2014 Type 1 diabetes mellitus David Kwong NP Onset: 12/11/2014 History of malignant neoplasm of bladder David Kwong NP Onset: 09/09/2018 Social History Type Date Description Comments Sex Unknown ETOH Use Rarely consumes alcohol Tobacco Use Start: Unknown End: Patient is a former Quit October 2011, Unknown smoker smoked 1/2 ppd x 41 yrs Recreational Drug Use Denies Drug Use Smoking Status Reviewed: 01/02/19 Patient is a former Quit October 2011, smoker smoked 1/2 ppd x 41 yrs Exercise Type/Frequency Exercises regularly Walking Allergies, Adverse Reactions, Alerts Active Allergies Reaction Severity Comments Date Sulfa Antibiotics 02/28/2017 Doxycycline 02/28/2017 Inactive Allergies NKDA 06/09/2010 Medications Active Medications SIG Qnty Indications Ordering Date Provider Azithromycin 2 tabs by mouth every 6tabs J45.21 David Kwong NP 01/02/2019 250mg day x1 day, 1 tab by Tablets mouth every day x 4 days Prednisone take 4 tab daily x 2 20tabs J45.21 David Kwong NP 01/02/2019 10mg days then 3 tab daily Tablets x 2 days, then 2 tab daily for 2 day, and 1 tab for 2 day. Albuterol Sulfate 1-2 puffs by mouth 8.500gm David Kwong NP 08/13/2018 HFA every 4-6 hours as 108(90Base) needed mcg/Act Aerosol Symbicort 2 puff twice a day 6.900gm David Kwong NP 08/07/2017 80-4.5mcg/Act Aerosol Novolog Flexpen Use Per Sliding Scale 30units E10.9 David Kwong NP 2017 Max/Daily 50 Units 100Unit/ML Solution Pen-Inject Albuterol Sulfate Use 1 Vial In 75units David Kwong NP 07/31/2017 Nebulizer 4 Times (2.5mg/3ML) 0.083% Daily as Needed Nebulizer Multivitamin take one 90units M06.9 Chintan Chavez, 07/11/2017 A/B/D/E/K/Plus Zinc capsule/tablet daily M.D. by mouth Chewtabs Lantus Solostar inject 22 units 15units E10.9 David Kwong NP 02/13/2017 subcutaneously at 100Unit/ML Solution bedtime Pen-Inject Pen [place] 5/16" Three times daily 90units E10.9 David Kwong NP 2015 before meals 30G X 8 mm Misc Insulin Once daily with 30units David Kwong NP 12/15/2014 Syringe/0.5ML/30G X Lantus 1/2" 30G X 1/2" 0.5 ML Misc Paroxetine HCL Take 1 Tablet By 30tabs David Kwong NP 12/11/2014 20mg Mouth Once Daily Tablets Proscar 1 by mouth every day Unknown 5mg Tablets Immunizations CPT Code Status Date Vaccine Reaction Lot # [id number] Given 01/31/2018 Influenza Virus Vaccine, Quadrivalent, Split, Preservative Free 26035 Given 01/05/2016 Influenza Virus Vaccine, no reaction noted ... [id number] Quadrivalent, Split, Preservative Free Vital Signs Date Vital Result Comment 01/02/2019 11:28am Height 69 inches 5'9" Weight 158.00 lb Heart Rate 86 /min BP Systolic Sitting 116 mmHg BP Diastolic Sitting 67 mmHg Body Temperature 97.7 F O2 % BldC Oximetry 93 % BMI (Body Mass Index) 23.3 kg/m2 12/03/2018 8:48am Height 69 inches 5'9" Weight 159.00 lb Heart Rate 70 /min BP Systolic 110 mmHg BP Diastolic 66 mmHg Body Temperature 97.9 F O2 % BldC Oximetry 95 % BMI (Body Mass Index) 23.5 kg/m2 Results Test Date Facility Test Result H/L Range Note Laboratory test [facility] Point of Care 201 mg/dL High 70-100 1 finding [address] [address] [phone] Laboratory test [facility] In House Hemoglobin A1c 6.5 5-7 finding 9 Urine Microalbumin [facility] Ur Microalbumin < 15.0 mg/L Random [address] (mg/L) [place] [address] [phone] Urine Creatinine 58.58 mg/dL Urine Microalbumin/Creatinine TNP <31 2 1 Steam Conditioning Operator: [id number] Unable to calculate due to low microalbumin Procedures Date Code Description Status 06/12/2017 630928969 Diabetic Retinal Eye Exam Completed 07/01/2014 93668756 Colonoscopy Completed Medical Devices Description No Information Available Encounters Type Date Location Provider Dx Diagnosis Office Visit 12/03/2018 [facility] Internal David Kwong NP Z01.818 Encounter for other 9:20a Medicine - [facility] preprocedural examination H26.9 Unspecified cataract E10.9 Type 1 diabetes mellitus without complications J44.9 Chronic obstructive pulmonary disease, unspecified Office Visit 10/18/2018 9:20a Rheumatology Chintan M06.9 [facility] Chavez M.D. 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 D72.1 Eosinophilia Office Visit 09/09/2018 2:40p [facility] Internal David Kwong, E10.9 Type 1 diabetes Medicine - [facility] FITTING ROOM ATTENDANT mellitus without complications J44.9 Chronic obstructive pulmonary disease, unspecified E78.5 Hyperlipidemia, unspecified M06.9 Rheumatoid arthritis, unspecified Assessments Date Code Description Provider 01/02/2019 J45.21 Mild intermittent asthma with (acute) David MARCELINO Kwong exacerbation 01/02/2019 R05 Cough David Kwong NP 12/03/2018 Z01.818 Encounter for other preprocedural examination David Kwong NP 12/03/2018 H26.9 Unspecified cataract David Kwong NP 12/03/2018 E10.9 Type 1 diabetes mellitus without complications David Kwong NP 12/03/2018 J44.9 Chronic obstructive pulmonary disease, David Kwong NP unspecified 10/18/2018 M06.9 Rheumatoid arthritis, unspecified Chintan Chavez M.D. 10/18/[address]/medical interpreter (current) drug therapy Chintan Chavez M.D. 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 10/18/2018 D72.1 Eosinophilia Chintan Chavez M.D. 09/09/2018 E10.9 Type 1 diabetes mellitus without complications David Kwong NP 09/09/2018 J44.9 Chronic obstructive pulmonary disease, David Kwong NP unspecified 09/09/2018 E78.5 Hyperlipidemia, unspecified David Kwong NP 09/09/2018 M06.9 Rheumatoid arthritis, unspecified David Kwong NP Plan of Treatment Future Appointment(s):01/06/2019 9:40 am - Chintan Chavez M.D. at [facility]10/20/2019 10:00 am - Chintan Chavez M.D. at [facility]03/11/2019 10:20 am - David Kwong NP at [facility] Internal Medicine - [facility]01/02/2019 - David Kwong NPJ45.21 Mild intermittent asthma with (acute) exacerbationNew Medication:Azithromycin 250 mg - 2 tabs by mouth every day x1 day, 1 tab by mouth every day x 4 daysPrednisone 10 mg - take 4 tab daily x 2 days then 3 tab daily x 2 days, then 2 tab daily for 2 day, and 1 tab for 2 day.Comments:I have increased the Symbicort to the 160/4.5mcg. Use this, two puffs twice daily, for the next two weeks and then go back to the 80/4.5mcg. Continue to use the nebulizer as needed, up to 4 times daily.Complete the entire course of the antibiotic.If your breathing worsens over the weekend you can start the prednisone.R05 Cough Functional Status Description No Information Available Mental Status Description No Information Available Referrals Refer to Reason for Referral Status Appt Date Chintan Chaudhari MD Please monitor for Plaquenil toxicity Sent [address] [place] [address] [phone]
--- OUTSIDE RECORDS SUMMARY | 2019-01-28 21:26 | XMS REPORT | Continuity of Care Document ---
:1955 External Reference #:[id number] Author Name Nilo Howard M.D. Address [address] [place] [id number] Care Team Providers Name Role Phone David Kwong - Nurse Practitioner Care Team Information Computer Systems Security Administrator Chintan Chavez MD - Rheumatology Care Team Information Computer Systems Security Administrator Bridget Sesay M.D. - Pulmonary Care Team Information Computer Systems Security Administrator Disease Problems Active Problems Provider Date Sinusitis Onset: Asthma Onset: Gastroesophageal reflux disease Onset: Rheumatoid arthritis Onset: Depression Onset: Type 1 diabetes mellitus Onset: Chronic cough Onset: Nuclear senile cataract Adriana Bryan O.D. Onset: 06/12/2017 Taking medication Adriana Bryan O.D. Onset: 06/12/2017 Type 1 diabetes mellitus with mild Adriana Bryan O.D. Onset: 06/12/2017 nonproliferative diabetic retinopathy without macular edema, bilateral Social History Type Date Description Comments Sex Unknown ETOH Use Denies alcohol use Tobacco Use Start: Unknown End: Unknown Patient is a former smoker Recreational Drug Use Denies Drug Use Smoking Status Reviewed: 12/31/18 Patient is a former smoker Allergies, Adverse Reactions, Alerts Active Allergies Reaction Severity Comments Date Sulfa Antibiotics 12/11/2018 Doxycycline 12/11/2018 Medications Active Medications SIG Qnty Indications Ordering Provider Date Prednisolone Acetate 1 drops right eye 10ml Nilo Howard, 12/11/2018 1% three times a M.D. Suspension day. taper as directed Symbicort as needed Unknown 160-4.5mcg/Act Aerosol Albuterol Sulfate Varghese David CLINICAL DOCUMENTATION CLERK (2.5mg/3ML) 0.083% Nebulizer Multivitamins Unknown Capsules Paroxetine HCL Varghese, David CLINICAL DOCUMENTATION CLERK 20mg Tablets Novolog Flexpen Varghese, David CLINICAL DOCUMENTATION CLERK 100Unit/ML Solution Pen-Inject Finasteride Vortomasa Aj 5mg Tablets M.D. Lantus Solostar Varghese, David CLINICAL DOCUMENTATION CLERK 100Unit/ML Solution Pen-Inject History Medications Ciprofloxacin HCL instill one drop 5ml Nilo Howard, 12/11/2018 - 0.3% in the right eye M.D. 12/30/2018 Solution three times a day, start the day before surgery Ketorolac Tromethamine use one drop in 10ml Nilo Howard, 12/11/2018 - 0.5% the right eye M.D. 12/30/2018 Solution three times a day, start the day before surgery Immunizations Description No Information Available Vital Signs Description No Information Available Results Test Date Facility Test Result H/L Range Note Laboratory test 12/16/2018 [facility] Point of Care 201 mg/dL High 70-100 [address] [address] [phone] Assessment Clinician: [id number] Procedures Date Code Description Status 12/16/2018 81779 Extracapsular Cataract Extraction W/Intraocular Lens Completed 12/11/2018 88093 Ophthalmic Biometry Completed 12/11/2018 29964 Ophthalmic Biometry Completed 12/11/2018 56066 Est Patient Intermediate Exam Completed 11/21/2018 97639 Scanning Computerized Opthalmic Diagnostic Posterior Seg Completed Retina 11/21/2018 37312 Est Patient Comprehensive Exam Completed Medical Devices Description No Information Available Encounters Description No Information Available Assessments Date Code Description Provider 12/31/2018 Z96.1 Presence of intraocular lens Nilo Howard M.D. 12/31/2018 H25.12 Age-related nuclear cataract, left eye Nilo Howard M.D. 12/17/2018 Z96.1 Presence of intraocular lens Nilo Howard M.D. 12/16/2018 H25.11 Age-related nuclear cataract, right eye Nilo Howard M.D. 12/11/2018 H25.11 Age-related nuclear cataract, right eye Nilo Howard M.D. 12/11/2018 E10.3293 Type 1 diabetes mellitus with mild Nilo Howard M.D. nonproliferative diabetic retinopathy without macular edema, bilateral 12/11/2018 Z79.899 [facility] [place] [facility] drug therapy Nilo Howard M.D. 12/11/2018 M06.9 Rheumatoid arthritis, unspecified Nilo Howard M.D. 12/11/2018 H25.12 Age-related nuclear cataract, left eye Nilo Howard M.D. 11/21/2018 H25.13 Age-related nuclear cataract, bilateral Nilo Howard M.D. 11/21/2018 E10.3293 Type 1 diabetes mellitus with mild Nilo Howard M.D. nonproliferative diabetic retinopathy without macular edema, bilateral 11/21/2018 Z79.899 Other [place] drug therapy Nilo Howard M.D. 11/21/2018 M06.9 Rheumatoid arthritis, unspecified Nilo Howard M.D. Plan of Treatment 12/31/2018 - Nilo Howard M.D.Z96.1 Presence of intraocular lensComments: Smoking can increase the risk of developing or worsening any eye related disease , as well as affect your overall health. If you are a smoker, we strongly recommend that you quit.If you are not a smoker, we strongly recommend that you do not start. Your lens implant looks stable in your right eye at this time. You should be done, or almost done with your drops at this time according to your surgical calendar. I have given you a prescription for glasses. If you have any questions, please feel free to call our office at .H25.12 Age-related nuclear cataract, left eyeComments:You have been diagnosed with a cataract in your left eye. If you are happy with your vision as it isnow, then we will see you at your next scheduled appointment. If you feel like your vision is getting worse before your scheduled appointment, please call Thu at [phone].Follow up:1 Year Follow Up DFE You can expect to have your eyes dilated at your next visit. If Dr. Howard orders any additional testing, it may require extra time. We recommend that you bring sunglasses, as dilation drops often make you light sensitive until they wear off. We always recommend you bring someone to drive you home if you are uncomfortable driving with your eyes dilated. If you have any questions before your next visit, feel free to call our office at . Functional Status Description No Information Available Mental Status Description No Information Available Referrals Description No Information Available
--- OUTSIDE RECORDS SUMMARY | 2019-01-28 21:26 | XMS REPORT | Continuity of Care Document ---
:1955 External Reference #:[id number] Author Name Nilo Howard M.D. Address [address] [place] [id number] Care Team Providers Name Role Phone David Kwong - Nurse Practitioner Care Team Information Roving Can Tender Chintan Chavez MD - Rheumatology Care Team Information Roving Can Tender Bridget Sesay M.D. - Pulmonary Care Team Information Roving Can Tender [phone] Disease Problems Active Problems Provider Date Sinusitis [...] Use Denies Drug Use Smoking Status Reviewed: 12/11/18 Patient is a former smoker Allergies, Adverse Reactions, Alerts Active Allergies Reaction Severity Comments Date Sulfa Antibiotics 12/11/2018 Doxycycline 12/11/2018 Inactive Allergies NKDA 08/02/2015 Medications Active Medications SIG Qnty Indications Ordering Date Provider Ciprofloxacin HCL instill one drop 5ml Nilo 12/11/2018 0.3% Solution in the right eye Danni Howard three times a day, start the day before surgery Ketorolac Tromethamine use one drop in 10ml Nilo 12/11/2018 0.5% the right eye Danni Howard Solution three times a day, start the day before surgery Prednisolone Acetate 1 drops right 10ml Nilo 12/11/2018 1% eye three times Danni Howard Suspension a day. taper as directed Humalog Kwikpen Unknown 100Unit/ML Solution Pen-Inject Basaglar Kwikpen Unknown 100Unit/ML Solution Pen-Inject Paxil Unknown 20mg Tablets Proscar Unknown 5mg Tablets Hydroxychloroquine Sulfate Unknown 200mg Tablets Symbicort as needed Unknown 160-4.5mcg/Act Aerosol Albuterol Sulfate Daivd Kwong SERVICE ORDER CLERK (2.5mg/3ML) 0.083% Nebulizer Multivitamins Unknown Capsules Immunizations Description No Information Available Vital Signs Description No Information Available Results Description No Information Available Procedures Date Code Description Status 11/21/2018 40413 Scanning Computerized Opthalmic Diagnostic Posterior Seg Completed Retina 11/21/2018 97526 Est Patient Comprehensive Exam Completed Medical Devices Description No Information Available Encounters Description No Information Available Assessments Date Code Description Provider 12/11/2018 H25.11 Age-related nuclear cataract, right eye Nilo Howard M.D. 12/11/2018 E10.3293 Type 1 diabetes mellitus with mild Nilo Howard M.D. nonproliferative diabetic retinopathy without macular edema, bilateral 12/11/2018 Z79.899 Other [facility] (current) drug therapy Nilo Howard M.D. 12/11/2018 M06.9 Rheumatoid arthritis, unspecified Nilo Howard M.D. 12/11/2018 H25.12 Age-related nuclear cataract, left eye Nilo Howard M.D. 11/21/2018 H25.13 Age-related nuclear cataract, bilateral Nilo Howard M.D. 11/21/2018 E10.3293 Type 1 diabetes mellitus with mild Nilo Zablocki, M.D. nonproliferative diabetic retinopathy without macular edema, bilateral 11/21/2018 Z79.899 Other intermission coordinator (current) drug therapy Nilo Howard M.D. 11/21/2018 M06.9 Rheumatoid arthritis, unspecified Nilo Howard M.D. Plan of Treatment Future Appointment(s):12/25/2018 8:00 am - Nilo Howard M.D. at Chintan Chaudhari MD, 12/17/2018 8:00 am - Nilo Howard M.D. at Chintan Chaudhari MD , 12/16/2018 10:00 am - Nilo Howard M.D. at Chintan Chaudhari MD, 2018 - Nilo Howard M.D.H25.11 Age-related nuclear cataract, right eyeComments:Smoking can increase the risk of developing or worsening any eye related disease, as well as affect your overall health. If you are a smoker, we strongly recommend that you quit.If you are not a smoker, we strongly recommend that you do not start. Dense cataract in the right eye.Follow up:For surgery. Please keep post op appointments as scheduled.E10.3293 Type 1 diabetes mellitus with mild nonproliferative diabetic retinopathy without macular edema, rzaehrhxiX59.899 Other [facility] (current) drug hkyswozI89.9 Rheumatoid arthritis, cmzxsmfpjyxW80.12 Age-related nuclear cataract, left eye Functional Status Description No Information Available Mental Status Description No Information Available Referrals Description No Information Available
--- OUTSIDE RECORDS SUMMARY | 2019-01-28 21:26 | XMS REPORT | Continuity of Care Document ---
:1955 External Reference #:[id number] Author Name Nilo Howard M.D. Address [address] [place] [id number] Care Team Providers Name Role Phone David Kwong - Nurse Practitioner Care Team Information Tipple Boss [phone] Chintan Chavez MD - Rheumatology Care Team Information Tipple Boss [phone] Bridget Sesay M.D. - Pulmonary Care Team Information Tipple Boss [phone] Disease Problems Active Problems Provider Date Sinusitis [...] Use Denies Drug Use Smoking Status Reviewed: 12/17/18 Patient is a former smoker Allergies, Adverse [...] as needed Unknown 160-4.5mcg/Act Aerosol Albuterol Sulfate David Kwong STOCK CLERK (2.5mg/3ML) 0.083% Nebulizer Multivitamins Unknown Capsules Immunizations Description No Information Available Vital Signs Description No Information Available Results Test Date Facility Test Result H/L Range Note Laboratory test 12/16/2018 [facility] Point of Care 201 mg/dL High 70-[address] [place] [address] [phone] Systems Accountant: [id number] Procedures Date Code Description Status 12/11/2018 90007 Ophthalmic Biometry Completed 12/11/2018 80017 Ophthalmic Biometry Completed 12/11/2018 40445 Est Patient Intermediate Exam Completed 11/21/2018 71118 Scanning Computerized Opthalmic Diagnostic Posterior Seg Completed Retina 11/21/2018 37132 Est Patient Comprehensive Exam Completed Medical Devices Description No Information Available Encounters Description No Information Available Assessments Date Code Description Provider 12/17/2018 Z96.1 Presence of intraocular lens Nilo Howard M.D. 12/11/2018 H25.11 Age-related nuclear cataract, right eye Nilo Howard M.D. 12/11/2018 E10.3293 Type 1 diabetes mellitus with mild Nilo Howard M.D. nonproliferative diabetic retinopathy without macular edema, bilateral 12/11/2018 Z79.899 Other [facility] (current) drug therapy Nilo Howard M.D. 12/11/2018 M06.9 Rheumatoid arthritis, unspecified Nilo Howard M.D. 12/11/2018 H25.12 Age-related nuclear cataract, left eye Nilo Howard M.D. 11/21/2018 H25.13 Age-related nuclear cataract, bilateral Nilo Howard M.D. 11/21/2018 E10.3293 Type 1 diabetes mellitus with mild Nilo Howard M.D. nonproliferative diabetic retinopathy without macular edema, bilateral 11/21/2018 Z79.899 Other [facility] (current[facility] drug therapy Nilo Howard M.D. 11/21/2018 M06.9 Rheumatoid arthritis, unspecified Nilo Howard M.D. Plan of Treatment Future Appointment(s):12/25/2018 8:00 am - Nilo Howard M.D. at Chintan Chaudhari MD, 12/17/2018 - Nilo Howard M.D.Z96.1 Presence of intraocular lensComments:Smoking can increase the risk of developing or worsening any eye related disease, as well as affect your overall health. If you are a smoker, we strongly recommend that you quit.If you are not a smoker, we strongly recommend that you do not start. The artifical lens implant in your right eye appearsto be stable. Since this is the first day after surgery, your right eye is still dilated and the vision will still be slightly blurry. The dilation will go down over the next day or two. Continue taking your eye drops as directed on the surgical calendar. If you have any questions, please call [email or web address].Follow up:As scheduled You can expect to have your eyes [...]
--- NOTE | 2019-01-28 21:49 | UC ---
Respiratory Complaint HPI - HPI Summary HPI Summary: 63 year old male with h/o COPD presents with shortness of breath, cough. Denies fever, feelings of being ill now other than fatigue. Was treated ~ 2 weeks ago by Holden Kwong with steroids, abx (z pack). + relief, however within a few days symptoms increased again with cough, productive at times, and shortness of breath. Improved with nebulizer at home- albuterol. - seen by PCP ~ 2 weeks ago, given abx and steroids without improvement presents with sister - History of Current Complaint Stated Complaint: BREATHING ISSUES Time Seen by Provider: 01/28/19 21:29 Hx Obtained From: Patient, Family/Cooking Casing And Drying Supervisor - sister Onset/Duration: Sudden Onset, Lasting Weeks Pain Scale Used: 0-10 Numeric Character: Cough: Productive Aggravating Factors: Deep Breaths - Allergies/Home Medications Allergies/Adverse Reactions: Allergies Allergy/AdvReac Type Severity Reaction Status Date / Time Sulfa (Sulfonamide Allergy Mild GI Upset Verified 01/28/19 21:41 Antibiotics) ENVIRONMENTAL Allergy NASAL Uncoded 01/28/19 21:41 CONGESTION Home Medications: Home Medications Albuterol 2.5MG/3ML (0.083%)* [Ventolin 2.5 MG/3 ML NEB.RUBY*] 2.5 mg INH Q4H [History Confirmed 01/28/19] Ibuprofen 400 mg PO Q6H PRN 01/28/19 [History Confirmed 01/28/19] guaiFENesin [Mucinex] 600 mg PO Q12H PRN 01/28/19 [History Confirmed 01/28/19] PMH/Surg Hx/FS Hx/Imm Hx Previously Healthy: Yes - Surgical History Surgical History: Yes Surgery Procedure, Year, and Place: bladder tumor removal [three surgeries] [facility] [place]. BONE MARROW BX 2017 [facility]. WISDOM TEETH EXTRACTION [facility] - Family History Known Family History: Positive: Non-Contributory Negative: Cardiac Disease, Hypertension, Diabetes, Respiratory Disease - Social History Alcohol Use: None Substance Use Type: None Smoking Status (MU): Former Smoker Type: Cigarettes Amount Used/How Often: 1/2 PPD Length of Time of Smoking/Using Tobacco: 40 years Have You Smoked in the Last Year: No When Did the Patient Quit Smoking/Using Tobacco: 2011 Household Exposure Type: Cigarettes - Immunization History Most Recent Influenza Vaccination: 2016 Most Recent Tetanus Shot: 4 years ago Most Recent Pneumonia Vaccination: several years ago Review of Systems All Other Systems Reviewed And Are Negative: Yes Constitutional: Positive: Negative. Negative: Fever, Chills, Fatigue ENT: Negative: Dental Pain, Sore Throat, Ear Ache, Nasal Discharge, Sinus Congestion, Sinus Pain/Tenderness Respiratory: Positive: Shortness Of Breath, Cough Cardiovascular: Negative: Palpitations, Chest Pain Musculoskeletal: Positive: Negative Neurological: Positive: Negative Is Patient Immunocompromised?: No Physical Exam Triage Information Reviewed: Yes Appearance: Well-Appearing, No Pain Distress, Well-Nourished Vital Signs Reviewed: Yes Eyes: Positive: Conjunctiva Clear ENT: Positive: Pharynx normal, Uvula midline. Negative: Tonsillar swelling, Tonsillar exudate, Sinus tenderness Neck: Positive: Supple, Nontender, No Lymphadenopathy. Negative: Nuchal Rigidity, Enlarged Nodes @ Respiratory: Positive: Chest non-tender, Normal breath sounds, No respiratory distress, No accessory muscle use, Decreased breath sounds - right lower lobes. Negative: Crackles, Rhonchi, Stridor, Wheezing Cardiovascular: Positive: RRR, No Murmur Neurological Exam: Normal Psychological Exam: Normal Skin Exam: Normal Respiratory Course/Dx - Course Course Of Treatment: Acute Bronchitis: - Increase fluid intake - Over the counter medications for cough - Prednisone as directed - Follow up with primary physician within 3-5 days for re-evaluation - Tylenol/ motrin as needed for symptoms - Differential Dx/Diagnosis Provider Diagnosis: Acute bronchitis Discharge ED - Sign-Out/Discharge Documenting (check all that apply): Patient Departure All imaging exams completed and their final reports reviewed: Yes - Discharge Plan Condition: Good Disposition: HOME Prescriptions: predniSONE TAB* [Deltasone 10 MG TAB*] 10 mg PO .SEE TAP #17 tab Patient Education Materials: Acute Bronchitis (ED), COPD (Chronic Obstructive Pulmonary Disease) (ED) Referrals: David Kwong BEE TENDER [Primary Care Provider] - Additional Instructions: - Increase fluid intake - Over the counter medications for cough - Prednisone as directed - Follow up with primary physician within 3-5 days for re-evaluation - Tylenol/ motrin as needed for symptoms - Billing Disposition and Condition Condition: GOOD Disposition: Home - Attestation Statements Provider Attestation: Per institutional requirements, I have reviewed the chart, however, I was not consulted specifically or made aware of this patient by the midlevel provider. I did not personally evaluate, interact with , or disposition this patient.
[2019-01-28 21:51] VITALS: BP 115/55
[2019-01-28] MEDS ORDERED: predniSONE TAB* 10 MG PO ONE (22:07)
== END 2019-01-28 22:20 | disposition home or self-care (01) ==
LOC: UCEAST 21:17
DX: J44.0 Chronic obstructive pulmonary disease with (acute) lower respiratory infection (principal); J20.9 Acute bronchitis, unspecified; R53.83 Other fatigue; Z87.891 Personal history of nicotine dependence; Z88.2 Allergy status to sulfonamides; Z91.09 Other allergy status, other than to drugs and biological substances; Z79.899 Other long term (current) drug therapy
CPT/HCPCS: 71046; 99212; G0463; J7512

== ENCOUNTER 2019-03-16 08:11 | Emergency (ER) | payer MEDICARE ==
--- OUTSIDE RECORDS SUMMARY | 2019-03-16 09:01 | XMS REPORT | Continuity of Care Document ---
:1955 External Reference #:[id number] Author Name David Kwong NP (transmitted by agent of provider Ami Zazueta) Address [address], [place] [address] Care Team Providers Name Role Phone Salome Butler MD - Internal Care Team Information Student Affairs Dean Medicine Nandini Chambers MD - Internal Care Team Information Student Affairs Dean [phone] Medicine Problems Active Problems Provider Date Rheumatoid [...] Use Denies Drug Use Smoking Status Reviewed: 03/11/19 Patient is a former Quit October 2011, smoker smoked 1/2 ppd x 41 yrs Exercise Type/Frequency Exercises regularly Walking Allergies, Adverse Reactions, Alerts Active Allergies Reaction Severity Comments Date Sulfa Antibiotics 02/28/2017 Doxycycline 02/28/2017 Inactive Allergies NKDA 06/09/2010 Medications Active Medications SIG Qnty Indications Ordering Date Provider Pulse Oximeter check spO2 2-3 times 1units J44.9 David Kwong NP 03/11/2019 daily and as needed. Misc Albuterol Sulfate 1-2 puffs by mouth 8.500gm David Kwong NP 08/13/2018 HFA every 4-6 hours as 108(90Base) needed mcg/Act Aerosol Symbicort 2 puff twice a day 6.900gm David Kwong NP 08/07/2017 80-4.5mcg/Act Aerosol Novolog Flexpen use per sliding scale 30units E10.9 David Kwong NP 2017 max/daily 50 units 100Unit/ML Solution Pen-Inject Albuterol Sulfate Use 1 Vial In 75units David Kwong NP 07/31/2017 Nebulizer 4 Times (2.5mg/3ML) 0.083% Daily as Needed Nebulizer Multivitamin take one 90units M06.9 Chintan Kathy, 07/11/2017 A/B/D/E/K/Plus Zinc capsule/tablet daily M.D. by mouth Chewtabs Lantus Solostar inject 22 units 15units E10.9 David Kwong NP 02/13/2017 subcutaneously at 100Unit/ML Solution bedtime Pen-Inject Pen [place] 5/16" Three times daily 90units E10.9 David Kwong NP 2015 before meals 30G X 8 mm Misc Insulin Once daily with 30units David Kwong NP 12/15/2014 Syringe/0.5ML/30G X Lantus 1/2" 30G X 1/2" 0.5 ML Misc Paroxetine HCL Take 1 Tablet By 30tabs David Kwong NP 12/11/2014 20mg Mouth Once Daily Tablets Proscar 1 by mouth every day Unknown 5mg Tablets History Medications Amoxicillin/Clavulanate take one 20tabs J45.21 David Kwong, 01/31/2019 - Potassium tablet q12 BUSINESS PROCESS ASSOCIATE 02/06/2019 875-125mg Tablets hours for 10 days Azithromycin 2 tabs by 6tabs J45.21 David Kwong, 01/02/2019 - 250mg Tablets mouth every BUSINESS PROCESS ASSOCIATE 01/06/2019 day x1 day, 1 tab by mouth every day x 4 days Prednisone take 4 tab 20tabs J45.21 David Kwong, 01/02/2019 - 10mg Tablets daily x 2 BUSINESS PROCESS ASSOCIATE 01/06/2019 days then 3 tab daily x 2 days, then 2 tab daily for 2 day, and 1 tab for 2 day. Symbicort Inhale 2 11units J45.21 David Kwong, 01/02/2019 - 160-4.5mcg/Act Aerosol Puffs By BUSINESS PROCESS ASSOCIATE 03/11/2019 Mouth Twice Daily Immunizations CPT Code Status Date Vaccine Reaction Lot # [id number] Given 01/31/2018 Influenza Virus Vaccine, Quadrivalent, Split, Preservative Free [id number] Given 01/05/2016 Influenza Virus Vaccine, no reaction noted ... hh cd3tf Quadrivalent, Split, Preservative Free Vital Signs Date Vital Result Comment 03/11/2019 9:58am Height 69 inches 5'9" Weight 160.00 lb Heart Rate 77 /min BP Systolic 119 mmHg BP Diastolic 66 mmHg Body Temperature 97.4 F O2 % BldC Oximetry 96 % BMI (Body Mass Index) 23.6 kg/m2 01/31/2019 8:38am Height 69 inches 5'9" Weight 150.38 lb Heart Rate 84 /min BP Systolic 111 mmHg BP Diastolic 65 mmHg Body Temperature 97.5 F O2 % BldC Oximetry 90 % BMI (Body Mass Index) 22.2 kg/m2 Results Test Acquired Date Facility Test Result H/L Range Note Laboratory test 03/11/2019 [facility] In House Hemoglobin A1c 6.7% 5-7 finding Comp Metabolic 03/04/2019 [facility] Sodium 137 mmol/L Normal 135-145 Panel [address] [place] [address] [phone] Potassium 4.5 mmol/L Normal 3.5-5.0 Chloride 102 mmol/L Normal 101-111 Co2 Carbon Dioxide 29 mmol/L Normal 22-32 Anion Gap 6 mmol/L Normal 2-11 Glucose 149 mg/dL High 70-100 Blood Urea Nitrogen 16 mg/dL Normal 6-24 Creatinine 0.96 mg/dL Normal 0.67-1.17 BUN/Creatinine Ratio 16.7 Normal 8-20 Calcium 8.6 mg/dL Normal 8.6-10.3 Total Protein 6.0 g/dL Low 6.4-8.9 Albumin 2.9 g/dL Low 3.2-5.2 Globulin 3.1 g/dL Normal 2-4 Albumin/Globulin Ratio 0.9 Low 1-3 Total Bilirubin 0.30 mg/dL Normal 0.2-1.0 Alkaline Phosphatase 73 U/L Normal 34-104 Alt 11 U/L Normal 7-52 Ast 17 U/L Normal 13-39 Egfr Non- 78.9 >60 Egfr 95.4 >60 1 Lipid Profile 03/04/2019 [facility] Triglycerides 63 mg/dL 2 (Trig/Chol/HDL) [address] [place] [address] [phone] Cholesterol 101 mg/dL 3 HDL Cholesterol 36.6 mg/dL 4 LDL Cholesterol 52 mg/dL 5 Laboratory test 12/16/2018 [facility] Point of Care 201 mg/dL High 70-100 [address] [place] [address] [phone] 1 Because ethnic data is not always readily available, this report includes an eGFR for both -Americans and non- Americans. The National Kidney Disease Education Program (NKDEP) does not endorse the use of the MDRD equation for patients that are not between the ages of 18 and 70, are , have extremes of body size, muscle mass, or nutritional status, or are non- or non-. According to the National Kidney Foundation, irrespective of diagnosis, the stage of the disease is based on the level of kidney function: Stage Description GFR(mL/min/1.73 m(2)) 1 Kidney damage with normal or decreased GFR 90 2 Kidney damage with mild decrease in GFR 60-89 3 Moderate decrease in GFR 30-59 4 Severe decrease in GFR 15-29 5 Kidney failure <15 (or dialysis) 2 Desirable: <150 Borderline High: 150-199 High: 200-499 Very High: >500 3 Desirable: <200 Borderline High: 200-239 High: >239 4 Low: <40 Desirable: 40-60 High: >60 5 Desirable: <100 Near Optimal: 100-129 Borderline High: 130-159 High: 160-189 Very High: >189 6 Supervisor Building Maintenance: [id number] Procedures Date Code Description Status 06/12/2017 391587495 Diabetic Retinal Eye Exam Completed 07/01/2014 [id number] Colonoscopy Completed Medical Devices Description No Information Available Encounters Type Date Location Provider Dx Diagnosis Office Visit 01/31/2019 [facility] David Kwong NP J45.21 Mild intermittent 8:40a Medicine - [facility] asthma with (acute) exacerbation J06.9 Acute upper respiratory infection, unspecified Office Visit 01/02/2019 11:20a [facility] Patrick Garcia45.21 Mild intermittent Medicine - [facility] BUSINESS PROCESS ASSOCIATE asthma with (acute) exacerbation R05 Cough Office Visit 12/03/2018 9:20a [facility] Internal David Varghese, Z01.818 Encounter for other Medicine - BUSINESS PROCESS ASSOCIATE preprocedural [facility] examination H26.9 Unspecified cataract E10.9 Type 1 diabetes mellitus without complications J44.9 Chronic obstructive pulmonary disease, unspecified Office Visit 10/18/2018 9:20a Rheumatology Chintan M06.9 [facility] Danni Chavez arthritis, unspecified Z79.899 Other halfway (current) drug therapy 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 D72.1 Eosinophilia Assessments Date Code Description Provider 03/11/2019 E10.9 Type 1 diabetes mellitus without complications David Varghese, BUSINESS PROCESS ASSOCIATE 03/11/2019 J44.9 Chronic obstructive pulmonary disease, David Varghese, BUSINESS PROCESS ASSOCIATE unspecified 01/31/2019 J45.21 Mild intermittent asthma with (acute) David Varghese, BUSINESS PROCESS ASSOCIATE exacerbation 01/31/2019 J06.9 Acute upper respiratory infection, unspecified David Varghese, BUSINESS PROCESS ASSOCIATE 01/02/2019 J45.21 Mild intermittent asthma with (acute) David Varghese, BUSINESS PROCESS ASSOCIATE exacerbation 01/02/2019 R05 Cough David Varghese, BUSINESS PROCESS ASSOCIATE 12/03/2018 Z01.818 Encounter for other preprocedural examination David Varghese , BUSINESS PROCESS ASSOCIATE 12/03/2018 H26.9 Unspecified cataract David Varghese, BUSINESS PROCESS ASSOCIATE 12/03/2018 E10.9 Type 1 diabetes mellitus without complications David Varghese, BUSINESS PROCESS ASSOCIATE 12/03/2018 J44.9 Chronic obstructive pulmonary disease, David Varghese, BUSINESS PROCESS ASSOCIATE unspecified 10/18/2018 M06.9 Rheumatoid arthritis, unspecified Chintan Chavez M.D. 10/18/2018 Z79.899 Other intermediate school teacher (current) drug therapy Chintan Chavez M.D. 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 10/18/2018 D72.1 Eosinophilia Chintan Chavez M.D. Plan of Treatment Future Appointment(s):09/10/2019 10:20 am - [facility] - Chintan Chavez M.D. at [facility]03/11/2019 - David Kwong, MARCELINOE10.9 Type 1 diabetes mellitus without complicationsComments:Your A1c is 6.7%. Continue with current medication regimen.Follow up:6 months, 20 minJ44.9 Chronic obstructive pulmonary disease, unspecifiedNew Medication:Pulse Oximeter - check spO2 2-3 times daily and as needed.Comments:Continue with current dose of Symbicort. Goals 03/11/2019 - David Kwong NPE10.9 Type 1 diabetes mellitus without complicationsGoal Hemoglobin A1c is less than 7.0%. Goal Blood pressure is less than 130/85. Functional Status Description No Information Available Mental Status Description No Information Available Referrals Refer to Dr Reason for Referral Status Appt Date Chintan Chaudhari MD Please monitor for Plaquenil toxicity Sent [address] [place] [address] [phone]
--- OUTSIDE RECORDS SUMMARY | 2019-03-16 09:01 | XMS REPORT | Continuity of Care Document ---
:1955 External Reference #:[id number] Author Name David Kwong NP (transmitted by agent of provider Deana Henderson) Address [address], [place] [address] Care Team Providers Name Role Phone Salome Butler MD - Internal Care Team Information Process Improvement Engineer [phone] Medicine Nandini Chambers MD - Internal Care Team Information Process Improvement Engineer Medicine Problems Active Problems Provider Date Rheumatoid [...] Use Denies Drug Use Smoking Status Reviewed: 01/31/19 Patient is a former Quit October 2011, smoker smoked 1/2 ppd x 41 yrs Exercise Type/Frequency Exercises regularly Walking Allergies, Adverse Reactions, Alerts Active Allergies Reaction Severity Comments Date Sulfa Antibiotics 02/28/2017 Doxycycline 02/28/2017 Inactive Allergies NKDA 06/09/2010 Medications Active Medications SIG Qnty Indications Ordering Date Provider Amoxicillin/Clavula take one tablet q12 20tabs J45.21 David Kwong NP 01/31 mary Potassium hours for 10 days 875-125mg Tablets Symbicort Inhale 2 Puffs By 11units J45.21 David Kwong NP 01/02/2019 Mouth Twice Daily 160-4.5mcg/Act Aerosol Albuterol Sulfate 1-2 puffs by mouth 8.500gm [...] subcutaneously at 100Unit/ML Solution bedtime Pen-Inject Pen [place] 5/16" Three times daily 90units E10.9 David Kwong NP 2015 before meals 30G X 8 mm Misc Insulin Once daily with 30units David Kwong NP 12/15/2014 Syringe/0.5ML/30G X Lantus 1/2" 30G X 1/2" 0.5 ML Misc Paroxetine HCL Take 1 Tablet By 30tabs David Kwong NP 12/11/2014 20mg Mouth Once Daily Tablets Proscar 1 by mouth every day Unknown 5mg Tablets History Medications Azithromycin 2 tabs by mouth 6tabs J45.21 David Kwong NP 01/02/2019 - 250mg every day x1 01/06/2019 Tablets day, 1 tab by mouth every day x 4 days Prednisone take 4 tab 20tabs J45.21 David Kwong NP 01/02/2019 - 10mg Tablets daily x 2 days 01/06/2019 then 3 tab daily x 2 days, then 2 tab daily for 2 day, and 1 tab for 2 day. Immunizations CPT Code Status Date Vaccine Reaction Lot # [id number] Given 01/31/2018 Influenza Virus Vaccine, Quadrivalent, Split, Preservative Free 16446 Given 01/05/2016 Influenza Virus Vaccine, no reaction noted ... hh cd3tf Quadrivalent, Split, Preservative Free Vital Signs Date Vital Result Comment 01/31/2019 8:38am Height 69 inches 5'9" Weight 150.38 lb Heart Rate 84 /min BP Systolic 111 mmHg BP Diastolic 65 mmHg Body Temperature 97.5 F O2 % BldC Oximetry 90 % BMI (Body Mass Index) 22.2 kg/m2 01/02/2019 11:28am Height 69 inches 5'9" Weight 158.00 lb Heart Rate 86 /min BP Systolic Sitting 116 mmHg BP Diastolic Sitting 67 mmHg Body Temperature 97.7 F O2 % BldC Oximetry 93 % BMI (Body Mass Index) 23.3 kg/m2 Results Test Date Facility Test Result H/L Range Note Laboratory test [facility] Point of Care 201 mg/dL High 70-100 1 finding [address] [place] [address] [phone] Laboratory test [facility] In House Hemoglobin A1c 6.5 5-7 finding 9 Urine Microalbumin [facility] Ur Microalbumin < 15.0 mg/L Random [address] (mg/L) [place] [address] [phone] Urine Creatinine 58.58 mg/dL Urine Microalbumin/Creatinine TNP <31 2 1 [employer] Supervisor: [id number] Unable to calculate due to low microalbumin Procedures Date Code Description Status 06/12/2017 [id number] Diabetic Retinal Eye Exam Completed 07/01/2014 [id number] Colonoscopy Completed Medical Devices Description No Information Available Encounters Type Date Location Provider Dx Diagnosis Office Visit 01/02/2019 [facility] David Kwong NP J45.21 Mild intermittent 11:20a Medicine - [facility] asthma with (acute) exacerbation R05 Cough Office Visit 12/03/2018 9:20a [facility] David Kwong Z01.818 Encounter for other Medicine - AUTOMOBILE ACCESSORIES SALESPERSON preprocedural [facility] examination H26.9 Unspecified cataract E10.9 Type 1 diabetes mellitus without complications J44.9 Chronic obstructive pulmonary disease, unspecified Office Visit 10/18/2018 9:20a Rheumatology Chintan M06.9 [facility] Kathy, M.D. 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 D72.1 Eosinophilia Office Visit 09/09/2018 2:40p [facility] Internal David Kwong, E10.9 Type 1 diabetes Medicine - [facility] AUTOMOBILE ACCESSORIES SALESPERSON mellitus without complications J44.9 Chronic obstructive pulmonary disease, unspecified E78.5 Hyperlipidemia, unspecified M06.9 Rheumatoid arthritis, unspecified Assessments Date Code Description Provider 01/31/2019 J45.21 Mild intermittent asthma with (acute) David Varghese, AUTOMOBILE ACCESSORIES SALESPERSON exacerbation 01/31/2019 J06.9 Acute upper respiratory infection, unspecified David Varghese, AUTOMOBILE ACCESSORIES SALESPERSON 01/02/2019 J45.21 Mild intermittent asthma with (acute) David Varghese, AUTOMOBILE ACCESSORIES SALESPERSON exacerbation 01/02/2019 R05 Cough David Varghese, AUTOMOBILE ACCESSORIES SALESPERSON 12/03/2018 Z01.818 Encounter for other preprocedural examination David Varghese , AUTOMOBILE ACCESSORIES SALESPERSON 12/03/2018 H26.9 Unspecified cataract David Varghese, AUTOMOBILE ACCESSORIES SALESPERSON 12/03/2018 E10.9 Type 1 diabetes mellitus without complications David Varghese, AUTOMOBILE ACCESSORIES SALESPERSON 12/03/2018 J44.9 Chronic obstructive pulmonary disease, David Varghese, AUTOMOBILE ACCESSORIES SALESPERSON unspecified 10/18/2018 M06.9 Rheumatoid arthritis, unspecified Chintan Chavez M.D. 10/18/2018 Z79.899 Other correction (current) drug therapy Chintan Chavez M.D. 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 10/18/2018 D72.1 Eosinophilia Chintan Chavez M.D. 09/09/2018 E10.9 Type 1 diabetes mellitus without complications David Varghese, AUTOMOBILE ACCESSORIES SALESPERSON 09/09/2018 J44.9 Chronic obstructive pulmonary disease, David Varghese, AUTOMOBILE ACCESSORIES SALESPERSON unspecified 09/09/2018 E78.5 Hyperlipidemia, unspecified David Varghese, AUTOMOBILE ACCESSORIES SALESPERSON 09/09/2018 M06.9 Rheumatoid arthritis, unspecified David Kwong NP Plan of Treatment Future Appointment(s):10/20/2019 10:00 am - Chintan Chavez M.D. at [facility]03/11/2019 10:20 am - David Kwong NP at [facility] Internal Medicine - [facility]01/31/2019 - David Kwong NPJ45.21 Mild intermittent asthma with (acute) exacerbationNew Medication:Amoxicillin/Clavulanate Potassium 875-125 mg - take one tablet q12 hours for 10 daysComments:Complete the course of prednisone.Continue using the Symbicort 160/4.5 daily.Continue using the albuterol as needed.Complete the entire course of antibiotic, even if feeling better. Call if you are nothaving improvement or any worsening.J06.9 Acute upper respiratory infection, unspecified Functional Status Description No Information Available Mental Status Description No Information Available Referrals Refer to Reason for Referral Status Appt Date Chintan Chaudhari MD Please monitor for Plaquenil toxicity Sent [address] [place] [address] [phone]
[2019-03-16 09:09] LABS: ABS Basophils 0.1 10^3/ul (0-0.2); ABS Eosinophils 0.4 10^3/ul (0-0.6); ABS Lymphocytes 0.6 10^3/ul (1.0-4.8); ABS Neutrophils 10.8 10^3/ul (1.5-7.7); Hematocrit 42 % (42-52); Hemoglobin 14.2 g/dL (14.0-18.0); Lymphocyte % 4.4 %; Mean Corpuscular HGB Conc 34 g/dL (31-36); Mean Corpuscular Hemoglobin 29 pg (27-31); Mean Corpuscular Volume 85 fL (80-94); Mean Platelet Volume 6.1 fL (7.4-10.4); Platelet Count 415 10^3/uL (150-450); Red Blood Count 4.96 10^6 /uL (4.18-5.48); Red Cell Distribution Width 14 % (10-15); White Blood Count 12.9 10^3/uL (3.5-10.8)
[2019-03-16 09:27] LABS: Albumin 3.4 g/dL (3.2-5.2); Albumin/Globulin Ratio 0.9 (1-3); BUN/Creatinine Ratio 17.9 (8-20); C Reactive Protein 104.8 mg/L (<8.01); EGFR African American 111.3 (>60); Globulin 3.6 g/dL (2-4); Total Bilirubin 0.5 mg/dL (0.2-1.0)
--- NOTE | 2019-03-16 09:56 | ED ---
Respiratory - HPI Summary HPI Summary: The pt is a 63 yr old male presenting [place] [facility] c/o SOB and coughing beginning 5 days [employer]. He states that when he coughs his right lung experiences slight pain and notes that he produces green sputum. He rates his current pain severity a 0/ 10. No aggravating or alleviating factors noted. He also denies any fever or CP. The pt has hx of COPD and smoking since quit. - History of Current Complaint Chief Complaint: EDShortnessOfBreath Stated Complaint: SOB PER PT Time Seen by Provider: 03/16/19 09:40 Hx Obtained From: Patient Onset/Duration: Sudden Onset, Lasting Days, Still Present Initial Severity: Mild Current Severity: None Pain Intensity: 0 Character: Cough (Productive) Sputum Amount: Small Sputum Color: Green Aggravating Factor(s): Nothing Alleviating Factor(s): Nothing Associated Signs and Symptoms: Negative - CP, fever, SOB - Allergy/Home Medications Allergies/Adverse Reactions: Allergies Allergy/AdvReac Type Severity Reaction Status Date / Time Sulfa (Sulfonamide Allergy Mild GI Upset Verified 01/28/19 21:41 Antibiotics) ENVIRONMENTAL Allergy NASAL Uncoded 01/28/19 21:41 CONGESTION Home Medications: Home Medications Vitamin E CAP* 200 unit PO DAILY 03/16/19 [History Confirmed 03/16/19] PMH/Surg Hx/FS Hx/Imm Hx Endocrine/Hematology History: Reports: Hx Diabetes - ON INSULIN Denies: Hx Thyroid Disease Comment Only: Hx Anemia - LOW R/T STATES CAUSE WAS FROM AN ANTIBIOTIC 2016 Cardiovascular History: Denies: Hx Hypertension Respiratory History: Reports: Hx Asthma - ON SYMBICORT, Hx Chronic Obstructive Pulmonary Disease (COPD) GI History: Denies: Hx Ulcer History: Reports: Hx Benign Prostatic Hyperplasia, Other Problems/ Disorders - 2012 BLADDER TUMORS FOLLOWS WITH Comment Only: Hx Renal Disease - BLADDER RESECTION Musculoskeletal History: Reports: Hx Arthritis - R/A, Hx Rheumatoid Arthritis Sensory History: Reports: Hx Cataracts - RIGHT EYE, Hx Contacts or Glasses - GLASSES Denies: Hx Hearing Aid Opthamlomology History: Reports: Hx Cataracts - RIGHT EYE, Hx Contacts or Glasses - GLASSES Psychiatric History: Reports: Hx Anxiety, Hx Depression Denies: Hx Eating Disorder, Hx of Violent Episodes Against Others - Cancer History Cancer Type, Location and Year: bladder - Surgical History Surgery Procedure, Year, and Place: bladder tumor removal [three surgeries[place] [facility] [facility] WIS[place] TE[place] EXTRA[place] [facility] Hx Anesthesia Reactions: No - Immunization History Date of Tetanus Vaccine: PT STATES THAT IT IS UNSURE Date of Influenza Vaccine: NONE Infectious Disease History: No Infectious Disease History: 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 Denies: Hx Clostridium Difficile, Hx Hepatitis, Hx of Known/Suspected MRSA, Hx Shingles, Hx Tuberculosis, Hx Known/Suspected VRE, Hx Known/Suspected VRSA, History Other Infectious Disease, Traveled Outside the [place] in Last 30 Days - Family History Known Family History: Negative: Cardiac Disease, Hypertension, Diabetes, Respiratory Disease - Social History Alcohol Use: None Hx Substance Use: No Substance Use Type: Reports: None Hx Tobacco Use: Yes Smoking Status (MU): Former Smoker Type: Cigarettes Amount Used/How Often: 1/2 PPD Length of Time of Smoking/Using Tobacco: 40 years Have You Smoked in the Last Year: No Review of Systems Negative: Fever Positive: Shortness Of Breath, Cough All Other Systems Reviewed And Are Negative: Yes Physical Exam - Summary Physical Exam Summary: VITAL SIGNS: Reviewed. GENERAL: Patient is a well-developed and nourished male who is lying comfortable in the stretcher. Patient is not in any acute respiratory distress. HEAD AND FACE: No signs of trauma. No ecchymosis, hematomas or skull depressions. No sinus tenderness. EYES: PERRLA, EOMI x 2, No injected conjunctiva, no nystagmus. EARS: Hearing grossly intact. Ear canals and tympanic membranes are within normal limits. MOUTH: Oropharynx within normal limits. NECK: Supple, trachea is midline, no adenopathy, no JVD, no carotid bruit, no c- spine tenderness, neck with full ROM. CHEST: Symmetric, no tenderness at palpation. LUNGS: Crackles in both bases of the lungs. CVS: Regular rate and rhythm, S1 and S2 present, no murmurs or gallops appreciated. ABDOMEN: Soft, non-tender. No signs of distention. No rebound, no guarding, and no masses palpated. Bowel sounds are normal. EXTREMITIES: FROM in all major joints, no edema, no cyanosis or clubbing. NEURO: Alert and oriented x 3. No acute neurological deficits. Speech is normal and follows commands. SKIN: Dry and warm. Triage Information Reviewed: Yes Vital Signs On Initial Exam: Initial Vitals Temp Pulse Resp BP Pulse Ox 97.7 F 98 18 144/80 97 03/16/19 08:14 03/16/19 08:14 03/16/19 08:14 03/16/19 08:14 03/16/19 08:14 Vital Signs Reviewed: Yes Procedures - Sedation Patient Received Moderate/Deep Sedation with Procedure: No Diagnostics - Vital Signs Vital Signs Temp Pulse Resp BP Pulse Ox 03/16/19 08:14 97.7 F 98 18 144/80 97 - Laboratory Lab Results: Lab Results 03/16/19 03/16/19 03/16/19 Range/Units 08:57 08:57 08:57 WBC 12.9 H (3.5-10.8) 10^3/uL RBC 4.96 (4.18-5.48) 10^6 /uL Hgb 14.2 (14.0-18.0) g/dL Hct 42 (42-52) % MCV 85 (80-94) fL MCH 29 (27-31) pg MCHC 34 (31-36) g/dL RDW 14 (10-15) % Plt Count 415 (150-450) 10^3/uL MPV 6.1 L (7.4-10.4) fL Neut % (Auto) 84.3 % Lymph % (Auto) 4.4 % [place] % (Auto) 7.8 % Eos % (Auto) 3.0 % Baso % (Auto) 0.5 % Absolute Neuts (auto) 10.8 H (1.5-7.7) 10^3/ul Absolute Lymphs (auto) 0.6 L (1.0-4.8) 10^3/ul Absolute Monos (auto) 1.0 H (0-0.8) 10^3/ul Absolute Eos (auto) 0.4 (0-0.6) 10^3/ul Absolute Basos (auto) 0.1 (0-0.2) 10^3/ul Absolute Nucleated RBC 0.0 10^3/ul Nucleated RBC % 0.0 Sodium 140 (135-145) mmol/L Potassium 5.0 (3.5-5.0) mmol/L Chloride 103 (101-111) mmol/L Carbon Dioxide 30 (22-32) mmol/L Anion Gap 7 (2-11) mmol/L BUN 15 (6-24) mg/dL Creatinine 0.84 (0.67-1.17) mg/dL Est GFR ( Amer) 111.3 (>60) Est GFR (Non-Af Amer) 92.0 (>60) BUN/Creatinine Ratio 17.9 (8-20) Glucose 162 H (70-100) mg/dL Lactic Acid 1.4 (0.5-2.0) mmol/L Calcium 9.0 (8.6-10.3) mg/dL Total Bilirubin 0.50 (0.2-1.0) mg/dL AST 17 (13-39) U/L ALT 14 (7-52) U/L Alkaline Phosphatase 87 (34-104) U/L Troponin I 0.00 (<0.03) ng/mL C-Reactive Protein 104.80 H (<8.01) mg/L B-Natriuretic Peptide (<=100) pg/mL Total Protein 7.0 (6.4-8.9) g/dL Albumin 3.4 (3.2-5.2) g/dL Globulin 3.6 (2-4) g/dL Albumin/Globulin Ratio 0.9 L (1-3) 03/16/19 Range/Units 08:57 WBC (3.5-10.8) 10^3/uL RBC (4.18-5.48) 10^6 /uL Hgb (14.0-18.0) g/dL Hct (42-52) % MCV (80-94) fL MCH (27-31) pg MCHC (31-36) g/dL RDW (10-15) % Plt Count (150-450) 10^3/uL MPV (7.4-10.4) fL Neut % (Auto) % Lymph % (Auto) % [place] % (Auto) % Eos % (Auto) % Baso % (Auto) % Absolute Neuts (auto) (1.5-7.7) 10^3/ul Absolute Lymphs (auto) (1.0-4.8) 10^3/ul Absolute Monos (auto) (0-0.8) 10^3/ul Absolute Eos (auto) (0-0.6) 10^3/ul Absolute Basos (auto) (0-0.2) 10^3/ul Absolute Nucleated RBC 10^3/ul Nucleated RBC % Sodium (135-145) mmol/L Potassium (3.5-5.0) mmol/L Chloride (101-111) mmol/L Carbon Dioxide (22-32) mmol/L Anion Gap (2-11) mmol/L BUN (6-24) mg/dL Creatinine (0.67-1.17) mg/dL Est GFR ( Amer) (>60) Est GFR (Non-Af Amer) (>60) BUN/Creatinine Ratio (8-20) Glucose (70-100) mg/dL Lactic Acid (0.5-2.0) mmol/L Calcium (8.6-10.3) mg/dL Total Bilirubin (0.2-1.0) mg/dL AST (13-39) U/L ALT (7-52) U/L Alkaline Phosphatase (34-104) U/L Troponin I (<0.03) ng/mL C-Reactive Protein (<8.01) mg/L B-Natriuretic Peptide 131 H (<=100) pg/mL Total Protein (6.4-8.9) g/dL Albumin (3.2-5.2) g/dL Globulin (2-4) g/dL Albumin/Globulin Ratio (1-3) Result Diagrams: 03/16/19 08:57 03/16/19 08:57 Lab Statement: Any lab studies that have been ordered have been reviewed, and results considered in the medical decision making process. - Radiology CXR Radiology Interpretation Completed By: Radiologist Summary of Radiographic Findings: IMPRESSION: No acute cardiopulmonary process by radiograph. ED Physician has reviewed this report. Disposition - Course Assessment/Plan: The pt is a 63 yr old male presenting to [facility] c/o SOB and coughing beginning 5 days [employer]. He states that when he coughs his right lung experiences slight pain and notes that he produces green sputum. He rates his current pain severity a 0/10. No aggravating or alleviating factors noted. He also denies any fever or CP. The pt has hx of COPD and smoking since quit. Blood work without any significant abnormality except for WBCs of 12.9, absolute neutrophils of 10.8, glucose is 162, CRP is 104.8, BNP is 132. Chest x -ray impression: No acute cardiopulmonary process. EKG is a normal sinus rhythm. In the ED course, patient was given DuoNebs, Solu-Medrol, and the symptoms have significantly improved. Since the patient has an increased with also count and a productive cough as well as COPD, azithromycin was given. I discussed all the findings and test results with the patient. Patient was instructed to return to the emergency room immediately if any of the symptoms return or worsen . Plan of care was discussed with the patient and understands and agrees. All questions were answered at patient satisfaction. There were no further complaints or concerns. Lung exam before discharge: CTA B/L. Good air exchange. No wheezing or crackles heard. CVS: S1 and S2 present. No murmurs appreciated. Patient is alert and oriented x 3. Patient is hemodynamically stable. Patient will be discharged home with follow up campaign specialist in the next 2-3 days - Differential Dx - Cardiopulmonary Differential Diagnoses - Cardiopulmonary: Asthma, Bronchitis, CHF, Exacerbation Of COPD - Diagnoses Provider Diagnoses: COPD exacerbation, Bronchitis Discharge ED - Sign-Out/Discharge Documenting (check all that apply): Patient Departure - discharge - Discharge Plan Condition: Stable Disposition: HOME Prescriptions: Azithromycin TAB* [Zithromax TAB (Z-BRIANNA) 250 mg #6 tabs] 250 mg PO DAILY #4 tab predniSONE [Prednisone 5 MG TAB] 10 mg PO DAILY #8 tablet Patient Education Materials: COPD (Chronic Obstructive Pulmonary Disease) (ED) Referrals: David Kwong, [employer] [Primary Care Provider] - 3 Days Additional Instructions: Please follow up with your primary care physician within 3 days. Please return to the ED for any new or worsening symptoms. - Billing Disposition and Condition Condition: STABLE Disposition: Home - Attestation Statements Document Initiated by Booker: Yes Documenting Scribe: Cornel Enciso Provider For Whom Booker is Documenting (Include Credential): Rush Pennington MD Scribe Attestation: Cornel Garcia, bennyibed for Rush Pennington MD on 03/17/19 at 1559. Scribe Documentation Reviewed: Yes Provider Attestation: The documentation as recorded by the Cornel thurston accurately reflects the service I personally performed and the decisions made by me, Rush Pennington MD Status of Scribe Document: Viewed
[2019-03-16] MEDS ORDERED: Albuterol/Ipratropium NEB.SOL* Albuterol 2.5 MG/Ipratropium 0.5 MG 3 ML INH ONE (11:05)
[2019-03-16] MEDS ORDERED: methylPREDNISolone 125 MG* 2 ML VIAL IV ONE (11:05)
[2019-03-16] MEDS ORDERED: Azithromycin TAB* 250 MG PO ONE (11:06)
[2019-03-16 13:27] VITALS: BP 130/65
== END 2019-03-16 13:53 | disposition home or self-care (01) ==
LOC: ED 08:11
DX: J44.1 Chronic obstructive pulmonary disease with (acute) exacerbation (principal); E11.9 Type 2 diabetes mellitus without complications; Z79.4 Long term (current) use of insulin; Z88.2 Allergy status to sulfonamides; Z87.891 Personal history of nicotine dependence
CPT/HCPCS: 36415; 71046; 80053; 83605; 83880; 84484; 85025; 86140; 87040; 93005; 96374; 99283; A9270-GY; J2930

== ENCOUNTER 2019-06-27 09:32 | Emergency (ER) | payer MEDICARE ==
--- NOTE | 2019-06-27 10:00 | ED ---
Shortness of Breath - HPI Summary HPI Summary: This pt is a 63 Y/O M presenting to [facility] with a CC of increased SOB since 2019 at 0800. He states that the SOB feels different from his COPD exacerbation he has experienced in the past and states that he becomes SOB after walking from a couch to his kitchen. He also reports having diaphoresis and rhinorrhea. He also reports a productive cough that produces clear mucous. Pt denies any fever, chills, erythema of eyes, sore throat, CP, abdominal pain, N/V, dysuria, hematuria, myalgia, edema, rash, or dizziness. He states that he has tried using 4 nebulizer Txs while at home without good effect. He has no alleviating factors. He has a PMHx of COPD, asthma, and DM. 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 He sleeps on one pillow. He denies recent travel our of [place]. He has recently taken ABx for COPD exacerbation. - History of Current Complaint Chief Complaint: EDShortnessOfBreath Time Seen by Provider: 06/27/19 09:47 Hx Obtained From: Patient Onset/Duration: Sudden Onset, Lasting Days - 2, Still Present, Worse Since - onset Timing: Constant Current Severity: Moderate Dyspnea At: Exertion Aggravating Factors: Movement Alleviating Factors: Nothing Associated Signs & Symptoms: Negative - fever, chills, erythema of eyes, sore throat, CP, abdominal pain, N/V, dysuria, hematuria, myalgia, edema, rash, or dizziness, Cough (Productive) - clear sputum, Diaphoresis - Allergy/Home Medications Allergies/Adverse Reactions: Allergies Allergy/AdvReac Type Severity Reaction Status Date / Time Sulfa (Sulfonamide Allergy Mild GI Upset Verified 06/27/19 09:44 Antibiotics) ENVIRONMENTAL Allergy NASAL Uncoded 06/27/19 09:44 CONGESTION Home Medications: Home Medications PARoxetine HCL TAB* [Paxil TAB*] 20 mg PO DAILY 10/02/12 [History Confirmed ] Budesonide/Formote 160/4.5(NF) [Symbicort 160/4.5 (NF)] 2 puff INH BID 03/06/17 [History Confirmed 06/27/19] Finasteride [Proscar] 5 mg PO DAILY 03/06/17 [History Confirmed 06/27/19] Hydroxychloroquine TAB* [Plaquenil TAB*] 400 mg PO DAILY 07/20/17 [History Confirmed 06/27/19] Insulin ASPART (NF) [Novolog 100 units/ml 10 ml VIAL (NF)] 0 unit SC SEE INSTRUCTIONS MDD 50u 12/12/18 [History Confirmed 06/27/19] Insulin GLARGINE(*) [Lantus 100 units/ml 10 ml VIAL (*)] 22 units IM BEDTIME 08/25 [History Confirmed 06/27/19] Multivitamin [Multivitamins] 1 cap PO DAILY 12/12/18 [History Confirmed 06/27/19 ] Albuterol 2.5MG/3ML (0.083%)* [Ventolin 2.5 MG/3 ML NEB.RUBY*] 2.5 mg INH QID PRN 01/28/19 [History Confirmed 06/27/19] Albuterol HFA INHALER* [Ventolin HFA Inhaler*] 1 - 2 puff INH Q4H PRN 06/27/19 [ History Confirmed 06/27/19] PMH/Surg Hx/FS Hx/Imm Hx Previously Healthy: Yes Endocrine/Hematology History: Reports: Hx Diabetes - ON INSULIN Denies: Hx Thyroid Disease Comment Only: Hx Anemia - LOW R/T STATES CAUSE WAS FROM AN ANTIBIOTIC 2016 Cardiovascular History: Denies: Hx Hypertension Respiratory History: Reports: Hx Asthma - ON SYMBICORT, Hx Chronic Obstructive Pulmonary Disease (COPD) GI History: Denies: Hx Ulcer History: Reports: Hx Benign Prostatic Hyperplasia, Other Problems/ Disorders - 2012 BLADDER TUMORS FOLLOWS WITH Comment Only: Hx Renal Disease - BLADDER RESECTION Musculoskeletal History: Reports: Hx Arthritis - R/A, Hx Rheumatoid Arthritis Sensory History: Reports: Hx Cataracts - RIGHT EYE, Hx Contacts or Glasses - GLASSES Denies: Hx Hearing Aid Opthamlomology History: Reports: Hx Cataracts - RIGHT EYE, Hx Contacts or Glasses - GLASSES Psychiatric History: Reports: Hx Anxiety, Hx Depression Denies: Hx Eating Disorder, Hx of Violent Episodes Against Others - Cancer History Cancer Type, Location and Year: bladder Hx Chemotherapy: No Hx Radiation Therapy: No - Surgical History Surgical History: Yes Surgery Procedure, Year, and Place: bladder tumor removal [three surgeries[place] [facility] [facility] 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 Denies: Hx Clostridium Difficile, Hx Hepatitis, Hx of Known/Suspected MRSA, Hx Shingles, Hx Tuberculosis, Hx Known/Suspected VRE, Hx Known/Suspected VRSA, History Other Infectious Disease, Traveled Outside the [place] in Last 30 Days - Family History Known Family History: Negative: Cardiac Disease, Hypertension, Diabetes, Respiratory Disease - Social History Occupation: Retired Lives: Alone Alcohol Use: None Hx Substance Use: No Substance Use Type: Reports: None Hx Tobacco Use: Yes Smoking Status (MU): Former Smoker Type: Cigarettes Amount Used/How Often: 1/2 PPD Length of Time of Smoking/Using Tobacco: 40 years Have You Smoked in the Last Year: No Review of Systems Positive: Chills, Skin Diaphoresis. Negative: Fever Negative: Erythema Positive: Nasal Discharge. Negative: Sore Throat Negative: Chest Pain Positive: Shortness Of Breath, Cough - prdouctive, clear sputum Negative: Abdominal Pain, Vomiting, Diarrhea, Nausea Negative: dysuria, hematuria Negative: Myalgia, Edema Negative: Rash Neurological/Mental Status: Negative - dizziness All Other Systems Reviewed And Are Negative: Yes Physical Exam - Summary Physical Exam Summary: Constitutional: Well-developed, Well-nourished, Alert. (-) Distressed Skin: Warm, Dry HENT: Normocephalic; Atraumatic Eyes: Conjunctiva normal Neck: Musculoskeletal ROM normal neck. (-) JVD, (-) Stridor, (-) Tracheal deviation Cardio: Rhythm regular, rate normal, Heart sounds normal; Intact distal pulses; The pedal pulses are 2+ and symmetric. Radial pulses are 2+ and symmetric. (-) Murmur Pulmonary/Chest wall: Effort normal. wheezing bilaterally with dimished breath sounds in the R upper lung field. (-) Rales Abd: Soft, (-) tenderness, (-) Distension, (-) Guarding, (-) Rebound Musculoskeletal: (-) Edema Lymph: (-) Cervical adenopathy Neuro: Alert, Oriented x3 Psych: Mood and affect Normal Triage Information Reviewed: Yes Vital Signs On Initial Exam: Initial Vitals Temp Pulse Resp BP Pulse Ox 98.1 F 95 18 126/70 96 06/27/19 09:41 06/27/19 09:41 06/27/19 09:41 06/27/19 09:41 06/27/19 09:41 Vital Signs Reviewed: Yes Procedures - Sedation Patient Received Moderate/Deep Sedation with Procedure: No Diagnostics - Vital Signs Vital Signs Temp Pulse Resp BP Pulse Ox 06/27/19 09:41 98.1 F 95 18 126/70 96 - Laboratory Result Diagrams: 06/27/19 10:10 06/27/19 10:10 Lab Statement: Any lab studies that have been ordered have been reviewed, and results considered in the medical decision making process. - Radiology CXR Radiology Interpretation Completed By: Radiologist Summary of Radiographic Findings: NO ACTIVE CARDIOPULMONARY DISEASE. ED physician has reviewed this report. - EKG 1123 Cardiac Rate: NL - 81 BPM EKG Rhythm: Sinus Rhythm ST Segment: Normal Ectopy: None Summary of EKG Findings: Normal sinus rhythm at 81 bpm, normal WV, normal QRS, normal QTc, normal axis, normal ST, normal T-waves, normal EKG. Interpreted by Dr. Chino at 1136 06/27/2019. 1412 Cardiac Rate: NL - 89 BPM EKG Rhythm: Sinus Rhythm ST Segment: Normal Ectopy: PVCs Summary of EKG Findings: Normal sinus rhythm at 89 bpm, normal WV, normal QRS, normal QTc, normal axis, normal ST, normal T-waves, with one PVC. Interpreted by Dr. Chino at 06/27/2019 1417. Re-Evaluation - Re-Evaluation First Eval Re-Evaluation Time: 13:46 Change: Unchanged Comment: Pt was able to ambulate with out 02 dropping below 94%. When sitting in bed he is at 96% on room air. He states that he still feels SOB. Will be given a duoneb and set at areosal percautions. Second Eval Re-Evaluation Time: 13:54 Change: Unchanged Comment: Pt reports chest tightness and SOB. Third Eval Re-Evaluation Time: 16:02 Change: Unchanged Comment: Pt states that he feels like he has rocks in his chest, stating he has chest tightness and is still SOB following the duoneb. He states that he would like to be admitted [place] [facility] Course/Dx - Course Course Of Treatment: This pt is a 63 Y/O M presenting [place] [facility] with a CC of increased SOB since 06/25/2019 at 0800. He states that the SOB feels different from his COPD exacerbation he has experienced in the past and states that he becomes SOB after walking from a couch to his kitchen. He also reports having diaphoresis and rhinorrhea. He also reports a productive cough that produces clear mucous. He states that he has tried using 4 nebulizer Txs while at home without good effect. 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 He sleeps on one pillow. He denies recent travel out of [place]. He has recently taken ABx for COPD exacerbation. His PE found he has wheezing bilaterally with dimished breath sounds in the R upper lung field. He was given albuterol and decadron during his ED course. CXR: NO ACTIVE CARDIOPULMONARY DISEASE. EKG at 1123 shows Normal sinus rhythm at 81 bpm, normal WV, normal QRS, normal QTc, normal axis, normal ST, normal T-waves, normal EKG. His influenza A and B tests are negative. Pt was able to ambulate with out 02 dropping below 94%. When sitting in bed he is at 96% on room air. He states that he still feels SOB. Will be given a duoneb and set at areosal percautions. EKG at 1412 Normal sinus rhythm at 89 bpm, normal WV, normal QRS, normal QTc, normal axis, normal ST, normal T-waves, with one PVC. Pt states that he feels like he has rocks in his chest, stating he has chest tightness and is still SOB following the duoneb. He states that he would like to be admitted to [facility] Per Dr. Bean, Hospitalist, a discharge plan was established with the pt at 1728. He was diagnosed with COPD exacerbation and suspection of 2019 novel coronavirus infection. Please referr to Krystina Wetzel's verbal orders for more information about discharge criteria. Pt does not present with sepsis and is hemodynamically stable at time of discharge. - Diagnoses Provider Diagnoses: COPD exacerbation, Suspected 2019 novel coronavirus infection - Physician Notifications Discussed Care of Patient With: ok Time Discussed With Above Provider: 16:48 Instructed by Provider To: Other - discharge Discharge ED - Sign-Out/Discharge Documenting (check all that apply): Patient Departure - discharge - Discharge Plan Condition: Good Disposition: HOME Patient Education Materials: COPD (Chronic Obstructive Pulmonary Disease) (ED) Forms: COVID-19 Tested & Isolation Referrals: David Kwong NP [Primary Care Provider] - 2 Days Additional Instructions: PLEASE FOLLOW UP WITH YOUR PRIMARY CARE PHYSICIAN IN 1-3 DAYS. RETURN TO THE EMERGENCY DEPARTMENT FOR ANY NEW OR WORSENING SYMPTOMS. Please wait for a follow up call from the department of health before ending your isolation. Please refer to the isolation form attached to your discharge packet for any further questions. - Attestation Statements Document Initiated by Scribe: Yes Documenting Scribe: Al Ibarra Provider For Whom Scribe is Documenting (Include Credential): Leroy Chino MD Scribe Attestation: Al Garcia, scribed for Leroy Chino MD on 06/27/19 at 1727. Status of Scribe Document: Ready
[2019-06-27] MEDS ORDERED: Dexamethasone IV* 4 MG/ML 1 ML (4 MG) IV SLOW PU ONE (10:13)
[2019-06-27] MEDS ORDERED: Albuterol HFA INHALER* 8 gm MDI INH ONE (10:13)
[2019-06-27 10:44] LABS: ABS Basophils 0.1 10^3/ul (0-0.2); ABS Eosinophils 0.9 10^3/ul (0-0.6); ABS Lymphocytes 0.6 10^3/ul (1.0-4.8); ABS Monocytes 0.6 10^3/ul (0-0.8); ABS Neutrophils 7.1 10^3/ul (1.5-7.7); Eosinophil % 9.9 %; Hematocrit 39 % (42-52); Hemoglobin 12.5 g/dL (14.0-18.0); Lymphocyte % 6.8 %; Mean Corpuscular HGB Conc 32 g/dL (31-36); Mean Corpuscular Hemoglobin 27 pg (27-31); Mean Corpuscular Volume 84 fL (80-94); Mean Platelet Volume 6.7 fL (7.4-10.4); Platelet Count 339 10^3/uL (150-450); Red Blood Count 4.62 10^6 /uL (4.18-5.48); Red Cell Distribution Width 15 % (10-15); White Blood Count 9.4 10^3/uL (3.5-10.8)
[2019-06-27 10:58] LABS: Activated Partial Thrombo Time 33.2 seconds (26.0-38.0); INR 1.07 (0.82-1.09)
[2019-06-27 11:07] LABS: Albumin 3.1 g/dL (3.2-5.2); Albumin/Globulin Ratio 0.9 (1-3); BUN/Creatinine Ratio 17.9 (8-20); Calcium 8.6 mg/dL (8.6-10.3); EGFR African American 111.3 (>60); Globulin 3.4 g/dL (2-4); Potassium 4.1 mmol/L (3.5-5.0); Total Bilirubin 0.3 mg/dL (0.2-1.0); Total Protein 6.5 g/dL (6.4-8.9)
[2019-06-27 11:09] LABS: Troponin I 0.01 ng/mL (<0.03)
[2019-06-27 11:44] LABS: Urine Appearance Clear; Urine Bilirubin Negative (Negative); Urine Blood Negative (Negative); Urine Color Yellow; Urine Glucose Negative (Negative); Urine Ketones Negative (Negative); Urine Nitrite Negative (Negative); Urine Protein Negative (Negative); Urine Specific Gravity 1.015 (1.010-1.030); Urine Urobilinogen Negative (Negative)
[2019-06-27 12:03] LABS: Influenza A Molecular Negative (Negative); Influenza B Molecular Negative (Negative)
[2019-06-27] MEDS ORDERED: Albuterol/Ipratropium NEB.SOL* Albuterol 2.5 MG/Ipratropium 0.5 MG 3 ML INH ONE (13:45)
[2019-06-27 18:23] VITALS: BP 128/82
--- NOTE | 2019-06-27 21:14 | CONS ---
CC: David Kwong NP * CONSULTATION REPORT: DATE OF CONSULT: 06/27/19 - EMERGENCY DEPT ATTENDING PHYSICIAN WHILE IN THE HOSPITAL: Kellen Lemus DO (dictated by HERMILO Elliott). CONSULTING PROVIDER: Dr. Leroy Chino. PRIMARY CARE PROVIDER: David Kwong NP CHIEF COMPLAINT: Shortness of breath and chest tightness. HISTORY OF PRESENT ILLNESS: Raj Sheriff is a 63-year-old white male with past medical history significant for COPD, bladder cancer, warm autoimmune hemolytic anemia, rheumatoid arthritis, and insulin-dependent diabetes mellitus type 2 who presents to the emergency department today due to shortness of breath with associated chest tightness. The patient tells me that he started having a cough 5 days ago. He intermittently is able to bring up sputum which is clear. He does at baseline have a cough intermittently that brings up clear sputum; however, he does feel that this week the volume has overall increased. The color has not changed, however. He started feeling shortness of breath with exertion yesterday and was starting to feel short of breath at rest as well today. He tells me that overnight last night he woke up suddenly with shortness of breath and chest tightness. His albuterol nebulizer helped, but after several hours he started to feel short of breath again and decided to come to the emergency department. The chest tightness went away with using the albuterol at home. He denies feelings of fever or chills, sore throat, nasal congestion, abdominal pain, nausea, vomiting, diarrhea, lightheadedness at rest , or severe chest pain with radiation. The patient tells me that he does intermittently throughout the years have COPD exacerbations at change of season. To his knowledge, he has not come in direct contact with a person who has tested positive for COVID-19. He lives alone and he tells me that if needing to be quarantined at home, his sister and [id number] would be able to bring him supplies to drop off at his house. While the patient was in the emergency department, he received a DuoNeb treatment. Dr. Chino felt he had some faint wheezing on his lung sounds prior to DuoNeb during his evaluation. The patient felt somewhat short of breath while ambulating after the DuoNeb; however, his oxygen saturation was checked at rest and with ambulation and maintained oxygen saturation over 95%. Dr. Chino asked the Hospitalists to evaluate the patient for possible admission. PAST MEDICAL HISTORY: 1. COPD. 2. History of bladder cancer. 3. Warm autoimmune hemolytic anemia. 4. History of thrombocytopenia. 5. Rheumatoid arthritis. 6. Insulin-dependent diabetes mellitus type 2. 7. Anxiety. PAST SURGICAL HISTORY: Bladder tumor resection. HOME MEDICATIONS: 1. Finasteride 5 mg p.o. daily. 2. Paroxetine 20 mg p.o. daily. 3. Insulin glargine 22 units subcu at bedtime. 4. Multivitamin 1 tab p.o. daily. 5. Insulin aspart sliding scale with meals. 6. Carb counting. 7. Symbicort 160/4.5 two puffs inhaled b.i.d. 8. Hydroxychloroquine 400 mg p.o. daily. 9. Albuterol inhaler 1 to 2 puffs inhaled q.4 hours p.r.n. shortness of breath and wheezing. 10. Albuterol nebulized solution 2.5 mg inhaled 4 times daily p.r.n. shortness of breath and wheezing. ALLERGIES: GI upset to SULFA drugs. FAMILY HISTORY: Father of leukemia. Mother of [place] in her 70s. SOCIAL HISTORY: The patient is a previous smoker, he quit about 10 years ago. Prior to that, he had approximately 20-pack year history. He denies illicit drugs or alcohol use. He denies vaping. He has 1 adult child and is . He works part-time at [employer]. REVIEW OF SYSTEMS: An 11-point review of systems was completed. All pertinent positive and negatives are above in the HPI. All other systems are negative. PHYSICAL EXAMINATION: Vital Signs: Temperature 98.1 degrees Fahrenheit, pulse 95, respiratory rate 18, oxygen saturation 96% on room at rest and 95% on room with ambulation, blood pressure 126/70. General: White male who appears stated age, sitting on the edge of hospital bed, appearing comfortable, in no acute distress. Eyes: PERRL. Sclerae anicteric. ENT: Mucous membranes are moist. Lungs: Somewhat diminished breath sounds, but overall clear to auscultation throughout. Not respiring with use of accessory muscles. Not tachypneic. Cardio: Regular rate and rhythm without murmurs, rubs, or gallops. Abdomen: Soft, nontender, nondistended. Extremities: No clubbing, cyanosis, or edema. Neuro: The patient is alert and oriented x3. Psych: The patient is pleasant and cooperative. DIAGNOSTIC STUDIES/LAB DATA: White blood cell count 9.4, hemoglobin 12.5, hematocrit 39, platelet count 339, absolute lymphocytes 0.6. INR 1.07, PTT 33.2. Sodium 140, potassium 4.1, chloride 107, carbon dioxide 26, anion gap 7, BUN 15, creatinine 0.84, glucose 111, lactic acid 1.6. Troponin 0.01 x2 readings. LFTs unremarkable. Urinalysis overall unremarkable. Influenza A and B negative. Chest x-ray, impression per radiologist's report: No acute cardiopulmonary disease. EKG at 11:23 today: 81 beats per minute. Normal sinus rhythm. No ST elevations or depressions. Some T wave flattening in V1, which is isolated. Normal axis. EKG today at 14:12: 89 beats per minute. Normal sinus rhythm. No ST elevation or depressions. Again, isolated T wave flattening in V1. There is an isolated PVC as well. ASSESSMENT AND PLAN: Raj Sheriff is a 63-year-old white male with past medical history significant for chronic obstructive pulmonary disease, bladder cancer, warm autoimmune hemolytic anemia, rheumatoid arthritis, insulin- dependent diabetes mellitus 2 who presents to the emergency department today for chest tightness and shortness of breath. The Hospitalist has been asked to evaluate the patient: 1. Shortness of breath and chest tightness. 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 Considering the current COVID-19 pandemic, this patient does meet criteria for COVID-19 testing. He has been swabbed in the emergency department. I believe this is within the realm of differential, but my differential additionally includes chronic obstructive pulmonary disease exacerbation related to environmental changes. Therefore, for that reason, I recommend discharging the patient with chronic obstructive pulmonary disease treatment with q.4 hour p.r.n. DuoNeb, 5-day 50 mg prednisone burst, and Spiriva as it appears he is only taking Symbicort to treat his chronic obstructive pulmonary disease and a LAMA is recommended. The patient does not meet inpatient criteria. He is afebrile, he is not having any working of breathing, he has no findings on his chest x-ray consistent with acute infection, and he is not requiring any oxygen. The patient is in agreement with this plan of discharge back to home with home self-quarantine. He does have a plan for his family members to bring his groceries and prescriptions at home for him and leave them outside of his door. I did recommend for him to utilize either his albuterol nebulizer or DuoNeb nebulizer every 4 hours as needed for shortness of breath and wheezing. I recommended for him to please come to the emergency department if chest tightness or shortness of breath does not improve with these nebulizers. I advised him to call his primary care provider if he has a fever or chills. Additionally, advised him to call his primary care provider to inform him of his COVID-19 test that is pending and that he will be practicing self- isolation. He is in agreement with this plan and I did discuss this with Dr. Chino, who is in agreement as well. I have no concerns for acute coronary syndrome at this time. The patient has few risk factors other than his family history, and his EKGs are without ischemic changes and 2 troponins were negative. 2. Regarding the patient's chronic conditions, I see no recommendations for changes other than I have started Spiriva. I discussed this case with my attending physician, Dr. Kellen Lemus; she agrees with this plan of care. TIME SPENT: Approximately 55 minutes was spent on this consult, approximately half of this time was spent at bedside evaluating the patient and discussing the plan of care. HERMILO ELLIOTT [id number]/[facility] #: [id number]
== END 2019-06-27 18:21 | disposition home or self-care (01) ==
LOC: ED 09:32
DX: J44.1 Chronic obstructive pulmonary disease with (acute) exacerbation (principal); R06.02 Shortness of breath; Z20.828 Contact with and (suspected) exposure to other viral communicable diseases; Z88.2 Allergy status to sulfonamides; E11.9 Type 2 diabetes mellitus without complications; Z79.4 Long term (current) use of insulin
CPT/HCPCS: 36415; 71045; 80053; 81003; 83605; 84484; 85025; 85610; 85730; 93005; 96374; 99282; A9270-GY; J1100; U0002

== ENCOUNTER 2023-01-07 10:38 | Inpatient (IN) ==
[2023-01-07 12:50] LABS: ABS Basophils 0.1 10^3/uL (0.0-0.1); ABS Lymphocytes 0.4 10^3/uL (1.0-4.8); ABS Monocytes 1.2 10^3/uL (0.0-1.1); ABS Neutrophils 8.6 10^3/uL (1.5-7.6); ABS Nucleated RBC 0.01 10^3/ul; Eosinophil % 0.4 %; Hemoglobin 14.2 g/dL (13.2-16.3); Mean Corpuscular Hemoglobin 31.3 pg (27-33); Mean Corpuscular Hgb Conc 33.8 g/dL (31-36); Mean Corpuscular Volume 92.4 fL (80-97); Mean Platelet Volume 6.9 fL (7.5-11.2); Nucleated Red Blood Cells % 0.1 /100 WBC (0.0-0.4); Platelet Count 221 10^3/uL (150-450); Red Blood Count 4.55 10^6/uL (4.06-5.63); White Blood Count 10.3 10^3/uL (3.6-10.2)
[2023-01-07 13:22] LABS: Albumin 3.9 g/dL (3.2-5.2); Albumin/Globulin Ratio 1.1 (1-3); C Reactive Protein 434.83 mg/L (<8.01); Calcium 9.4 mg/dL (8.6-10.3); Creatinine, Serum 1.11 mg/dL (0.67-1.17); Globulin 3.5 g/dL (2-4); Potassium 4.7 mmol/L (3.5-5.0); Total Bilirubin 0.9 mg/dL (0.2-1.0); Total Protein 7.4 g/dL (6.4-8.9); eGFR CKD-EPI 72.3 (>60)
[2023-01-07] MEDS ORDERED: cefTRIAXone 2 gm/50 mL D5W 2 GM/50 ML BAG IV ONE (14:40)
[2023-01-07] MEDS ORDERED: Vancomycin 1,500 MG in NS 0.9% 250 ml 250 ML IVPB ONE (14:40)
[2023-01-07 14:53] LABS: Erythrocyte Sed Rate 52 mm/Hr (0-19)
[2023-01-07 16:14] LABS: Body Fluid Appearance Cloudy; Body Fluid Color Amber; Body Fluid Source Synovial Fluid
[2023-01-07 17:01] LABS: Body Fluid Band 2 %; Body Fluid Mono 1 %; Body Fluid Total Cells Counted 200
[2023-01-07 17:02] LABS: Body Fluid WBC 56322 /mcL
[2023-01-07] MEDS ORDERED: Bupivacaine 0.5% SDV PF 30ML VIAL ONE (18:37)
[2023-01-07] MEDS ORDERED: Lidocaine 1% w EPI 1:100,000 MDV 20 ML VIAL ONE (18:38)
[2023-01-07] MEDS ORDERED: fentaNYL 100 mcg/2 ml 50 MCG/ML VIAL ONE ×2 (18:49→20:00)
[2023-01-07] MEDS ORDERED: Lidocaine 2% PF 5 ML VIAL ONE (18:49)
[2023-01-07] MEDS ORDERED: Propofol 10 MG/ML 20 ML BTL ONE (18:49)
[2023-01-07] MEDS ORDERED: Midazolam 2 mg/2 ml VIAL 1 mg/ml 2 ml VIAL (2 mg) ONE (18:49)
[2023-01-07] MEDS ORDERED: Ondansetron 4 mg VIAL 2 MG/ML 2 ml VIAL IV PRN ×3 (19:13→21:20)
[2023-01-07] MEDS ORDERED: Naloxone 0.4 mg VIAL 0.4 mg/ml 1 ml VIAL IV PRN ×2 (19:13→21:20)
[2023-01-07] MEDS ORDERED: fentaNYL 100 mcg/2 ml 50 MCG/ML VIAL IV PRN ×2 (19:13→21:20)
[2023-01-07] MEDS ORDERED: Ondansetron 4 mg VIAL 2 MG/ML 2 ml VIAL ONE (19:53)
[2023-01-07] MEDS ORDERED: Dexamethasone IV 4 MG/ML VIAL 1 ml VIAL ONE (19:53)
[2023-01-07] MEDS ORDERED: Dextrose 50% Syringe 50 ml 25 GM/50 ML SYRINGE IV PUSH PRN (23:41)
[2023-01-08] MEDS ORDERED: Vancomycin per Pharmacy 1 EA NOTE FOLLOW UP SCH (03:00)
[2023-01-08] MEDS ORDERED: Vancomycin 1000 MG in NS 0.9% 250 ML IVPB SCH (06:30)
[2023-01-08 06:57] LABS: C Reactive Protein 355.32 mg/L (<8.01); Calcium 8.2 mg/dL (8.6-10.3); Creatinine, Serum 1.13 mg/dL (0.67-1.17); Potassium 5.6 mmol/L (3.5-5.0); eGFR CKD-EPI 70.8 (>60)
[2023-01-08 07:19] LABS: ABS Lymphocytes 0.3 10^3/uL (1.0-4.8); ABS Monocytes 0.3 10^3/uL (0.0-1.1); ABS Neutrophils 7.9 10^3/uL (1.5-7.6); Hematocrit 37.5 % (38-53); Hemoglobin 12.6 g/dL (13.2-16.3); Lymphocyte % 3.7 %; Mean Corpuscular Hemoglobin 31.5 pg (27-33); Mean Corpuscular Hgb Conc 33.7 g/dL (31-36); Mean Corpuscular Volume 93.6 fL (80-97); Mean Platelet Volume 7.5 fL (7.5-11.2); Platelet Count 218 10^3/uL (150-450); Red Cell Distribution Width 14.6 % (12-17); White Blood Count 8.6 10^3/uL (3.6-10.2)
[2023-01-08] MEDS: Levalbuterol HFA INHALER MDI INH PRN (08:30)
[2023-01-08] MEDS ORDERED: Influenza vaccine *QUAD* *2023-24* 0.5 ML SYRINGE IM ONE (09:00)
[2023-01-08] MEDS ORDERED: ceFAZolin 2 GM in NS PREMIX 2 GM/100 ML BAG IVPB SCH (11:00)
[2023-01-08] MEDS: ceFAZolin 2 GM PREMIX 2 GM/50 ML BAG IV SCH ×2 (11:03→20:03)
[2023-01-08] MEDS ORDERED: Dextrose 50% Syringe 50 ml 25 GM/50 ML SYRINGE IV PUSH PRN (11:35)
[2023-01-08 11:56] LABS: ABS Lymphocytes 0.4 10^3/uL (1.0-4.8); ABS Monocytes 0.7 10^3/uL (0.0-1.1); ABS Neutrophils 8.8 10^3/uL (1.5-7.6); Hematocrit 36.3 % (38-53); Hemoglobin 12.1 g/dL (13.2-16.3); Lymphocyte % 4.2 %; Mean Corpuscular Hemoglobin 31.2 pg (27-33); Mean Corpuscular Hgb Conc 33.3 g/dL (31-36); Mean Corpuscular Volume 93.7 fL (80-97); Mean Platelet Volume 7.3 fL (7.5-11.2); Platelet Count 226 10^3/uL (150-450); Red Blood Count 3.87 10^6/uL (4.06-5.63); Red Cell Distribution Width 14.7 % (12-17)
[2023-01-08 12:21] LABS: Calcium 8.2 mg/dL (8.6-10.3); Creatinine, Serum 1.08 mg/dL (0.67-1.17); eGFR CKD-EPI 74.7 (>60)
[2023-01-08] MEDS ORDERED: Insulin GLARGINE 100 un/ml 10 ml VIAL SUBCUT SCH ×2 (21:00)
[2023-01-08] MEDS: Enoxaparin 40 MG/0.4 ML SYR SUBCUT SCH (21:44)
[2023-01-09] MEDS: ceFAZolin 2 GM PREMIX 2 GM/50 ML BAG IV SCH ×3 (03:59→20:31)
[2023-01-09] MEDS ORDERED: Vancomycin Trough Check NOTE FOLLOW UP ONE (06:00)
[2023-01-09 06:22] LABS: ABS Lymphocytes 0.9 10^3/uL (1.0-4.8); ABS Monocytes 0.7 10^3/uL (0.0-1.1); ABS Neutrophils 8.9 10^3/uL (1.5-7.6); ABS Nucleated RBC 0.01 10^3/ul; Eosinophil % 0.1 %; Hematocrit 37.2 % (38-53); Hemoglobin 12.5 g/dL (13.2-16.3); Lymphocyte % 8.6 %; Mean Corpuscular Hemoglobin 31.4 pg (27-33); Mean Corpuscular Hgb Conc 33.5 g/dL (31-36); Mean Corpuscular Volume 93.6 fL (80-97); Nucleated Red Blood Cells % 0.1 /100 WBC (0.0-0.4); Platelet Count 221 10^3/uL (150-450); Red Blood Count 3.97 10^6/uL (4.06-5.63); White Blood Count 10.5 10^3/uL (3.6-10.2)
[2023-01-09 06:38] LABS: Calcium 8.3 mg/dL (8.6-10.3); Creatinine, Serum 0.93 mg/dL (0.67-1.17); Potassium 4.9 mmol/L (3.5-5.0); eGFR CKD-EPI 89.4 (>60)
[2023-01-09] MEDS: Levalbuterol HFA INHALER MDI INH PRN ×2 (08:43→20:59)
[2023-01-09] MEDS ORDERED: Insulin GLARGINE 100 un/ml 10 ml VIAL SUBCUT ONE (11:42)
[2023-01-09] MEDS: Enoxaparin 40 MG/0.4 ML SYR SUBCUT SCH (20:35)
[2023-01-09] MEDS ORDERED: Insulin GLARGINE 100 un/ml 10 ml VIAL SUBCUT SCH ×4 (21:00)
[2023-01-10] MEDS: ceFAZolin 2 GM PREMIX 2 GM/50 ML BAG IV SCH ×2 (04:08→12:10)
[2023-01-10 04:27] LABS: ABS Neutrophils 4.4 10^3/uL (1.5-7.6); Eosinophil % 0.6 %; Hemoglobin 12.6 g/dL (13.2-16.3); Lymphocyte % 15.1 %; Mean Corpuscular Hemoglobin 31.3 pg (27-33); Mean Corpuscular Hgb Conc 33.9 g/dL (31-36); Mean Corpuscular Volume 92.3 fL (80-97); Platelet Count 233 10^3/uL (150-450); Red Blood Count 4.01 10^6/uL (4.06-5.63); Red Cell Distribution Width 15.1 % (12-17); White Blood Count 6.4 10^3/uL (3.6-10.2)
[2023-01-10 04:43] LABS: C Reactive Protein 165.47 mg/L (<8.01); Creatinine, Serum 0.86 mg/dL (0.67-1.17); Potassium 4.3 mmol/L (3.5-5.0); eGFR CKD-EPI 94.3 (>60)
[2023-01-10 14:12] VITALS: BP 118/48
[2023-01-10 22:44] LABS: Anaplasma phagocytophilum Negative (Negative); B. miyamotoi PCR, B Negative (Negative); Babesia divergens/MO-1 Negative (Negative); Babesia ducani Negative (Negative); Ehrlichia chaffeensis Negative (Negative); Ehrlichia ewingii/canis Negative (Negative); Ehrlichia muris eauclairensis Negative (Negative)
== END 2023-01-10 17:28 | disposition home or self-care (01) | DRG 487 ==
LOC: ED 10:38 → OR 20:55 → SUATTDRO 22:29 → MEDTELE 22:29
PROVIDERS: ADMIT Hospitalist; ATTEND Internal Medicine